=== PATIENT | female | born 1990 | race Caucasian/White ===

== ENCOUNTER 2020-10-28 15:10 | Emergency (ER) | payer OTHER, SELFPAY ==
[2020-10-28 15:52] VITALS: BP 116/73; PULSE 71; RESP 18; TEMP 36.5; O2SAT 100; BMI 35.5
--- NOTE | 2020-10-28 16:36 | ED.BACK ---
HPI - Back Pain/Injury General Chief Complaint: Back Pain/Injury Stated Complaint: Back Pain No Injury Time Seen by Provider: 10/28/20 16:24 Source: patient Mode of arrival: ambulatory Limitations: no limitations History of Present Illness HPI Narrative: 30 y/o female who is 2 months presenting with left lower back pain that started 2 days ago when she got up out of bed. She states the pain is aching in nature, worse with movement, palpation or when sitting in 1 position for too long. She has been taking Tylenol for the pain with no improvement. She denies urinary symptoms. No fever, chills. No radiation of pain. She denies any injury or trauma but noticed the pain when she got out of bed. She denies cramping, abdominal pain or vaginal bleeding. This is her 1st . MD elicited complaint: back pain Onset (ago): day(s) (2) Timing: constant Severity: moderate Similar Symptoms Previously: No Quality: aching Location: left lower back Radiation: none Exacerbating factors: movement and walking Relieving factors: immobilization Context: turning/twisting Associated symptoms: denies other symptoms Treatments prior to arrival: acetaminophen Work related injury: No Related Data Previous Rx's Medication Instructions Recorded lidocaine [Lidoderm] 1 patch TOPICAL DAILY #15 ea 10/28/20 Allergies Allergy/AdvReac Type Severity Reaction Status Date / Time latex [Latex] Allergy Unknown UNKNOWN Verified 10/28/20 15:52 From DILAUDID Allergy Mild FACIAL Uncoded 03/13/20 15:55 NUMBNESS AND HANDS NUMB Review of Systems Review of Systems: Constitutional: No Fever, No Chills ENT/Mouth: No sore throat, No Rhinorrhea, No Swallowing Difficulty Cardiovascular: No Chest Pain, No SOB Respiratory: No Cough, No Sputum Gastrointestinal: + Nausea, No Vomiting, No Diarrhea, No abdominal Pain Genitourinary: No Dysuria, No Urinary Frequency, No Hematuria Musculoskeletal: No joint pain, + Myalgias Skin: No Skin Lesions, No rash Neuro: No Weakness, No Numbness, No Dizziness, No Headache Psych: No Anxiety/Panic, No Depression Heme/Lymph: No Bruising, No Lymphadenopathy PMFSH Past Medical History Attestation statement: The following information was validated with the patient. Social History Social History Alcohol intake: never Smoked in Last 30 Days: No Use of substances other than those prescribed or required for medical reasons: No Any prior treatment program specific to substance use: No Advance Directives: No Advance Directives Information Provided: No Patient : Yes Physical Exam Vital Signs: Vital Signs: Last Vital Signs Temp 97.7 F 10/28/20 15:52 Pulse 71 10/28/20 15:52 Resp 18 10/28/20 15:52 BP 116/73 10/28/20 15:52 Pulse Ox 100 10/28/20 15:52 Body Mass Index 35.5 Appearance: Alert. Oriented X3. No acute distress. HEENT: normal inspection CVS: Normal heart rate and rhythm. Pulses normal. Respiratory: No respiratory distress. Speaks in full sentences Skin: Skin warm and dry. Normal skin color. Normal skin turgor. No rashes. Abd: no YANNICK tenderness. no abdominal tenderness, no rebound or guarding. Back: left middle & lower lumbar soft tissue tenderness, no SI joint tenderness. Limited ROM due to discomfort. No CVA tenderness Extremities: atraumatic, no edema. Neuro: Oriented X 3. No motor deficit. No sensory deficit. Ambulates with slow but steady gait Course Course Course Narrative: 30 y/o G1 who is 8 weeks presents with left lower back pain that started 2 days ago when she was getting out of bed. No urinary symptoms. Exam is consistent with muscular pain. Will check UA. Lidoderm ordered. Treatment options are limited due to . Reevaluation(s) Reevaluation #1: Patient unable to urinate. She would like to be discharged. She states she will follow up with her OB this week. She continues to deny urinary symptoms. Comfortable with d/c home as her exam and clinical presentation are consistent with muscluar pain. Discharge Plan Discharge Clinical Impression: Strain of lumbar region Qualifiers: Encounter type: initial encounter Qualified Code(s): S39.012A - Strain of muscle, fascia and tendon of lower back, initial encounter Patient Disposition: Home, Self-Care Instructions: Low Back Strain (ED), Lower Back Exercises (ED) Additional Instructions: Your pain is likely muscular. No bending, lifting or twisting. Use ice several times per day for 20 minutes at a time for the next 48 hours and then change to heat. Take Tylenol 1,000 mg every 6 hours as needed for pain. Use topical Lidoderm patches as needed for pain. Follow up with your Primary Care Doctor & your DEPENDENCY PROGRAM DIRECTOR this week. If your pain worsens, if you develop new numbness, tingling, weakness, or vaginal bleeding come back to the ER right away for evaluation. Prescriptions: New lidocaine [Lidoderm] 5 % adhesive patch,medicated 1 patch topical DAILY Qty: 15 RF: 0
[2020-10-28] MEDS: Lidocaine 4 % Patch ADH..PATCH 1 PATCH TRANSDERMA (17:14)
--- NOTE | 2020-10-28 17:40 | PC.NURSE ---
PT STATING THAT SHE HAS A PHOBIA OF PUBLIC RESTROOM AND IS UNABLE TO PEE EVEN TRIED COMMODE IN ROOM AND PT UNABLE TO URINE HERE NOAM MORTON AWARE AND PT WILL NEEDED TO F/U OUT PT WITH PCP FOR URINE TEST OR HER OBGYN TO R/U UTI.
== END 2020-10-28 18:03 | disposition home or self-care (01) ==
PROVIDERS: Emergency Provider Internal Medicine; PCP Internal Medicine
DX: O9A.211 Injury, poisoning and certain other consequences of external causes complicating pregnancy, first trimester (principal); S39.012A Strain of muscle, fascia and tendon of lower back, initial encounter; X50.1XXA Overexertion from prolonged static or awkward postures, initial encounter; Z3A.08 8 weeks gestation of pregnancy; Y93.84 Activity, sleeping; Y92.013 Bedroom of single-family (private) house as the place of occurrence of the external cause; Y99.9 Unspecified external cause status
CPT/HCPCS: 99283; 99284

== ENCOUNTER 2020-12-03 16:11 | Emergency (ER) | payer OTHER, SELFPAY | END 2020-12-03 19:07 | disposition left against medical advice (07) | PROVIDERS: Emergency Provider Emergency Medicine; PCP Internal Medicine | DX: R10.30 Lower abdominal pain, unspecified (principal) ==

== ENCOUNTER 2020-12-03 19:31 | Emergency (ER) | payer OTHER, SELFPAY ==
[2020-12-03 20:55] VITALS: BP 132/61; PULSE 91; RESP 18; TEMP 37; O2SAT 97; BMI 35.5
[2020-12-03 22:19] LABS: Basophils Percent Auto 0.4 % (0-2); Eosinophils Absolute Auto 0.2 X10*3/uL (0.0-0.4); Eosinophils Percent Auto 1.4 % (0-4); Hematocrit 34.7 % (37-47); Hemoglobin 10.4 g/dl (12.0-16.0); Imm Gran Abs Auto 0.07 X10*3/uL (0.00-0.03); Imm Gran Pct Auto 0.7 % (0.0-0.4); Lymphocytes Absolute Auto 1.3 X10*3/uL (1.2-4.9); Lymphocytes Percent Auto 11.9 % (20-40); MANUAL DIFF FLAG NO; Mean Corpuscular Hemoglobin 21.5 pg (27.0-33.0); Mean Corpuscular Volume 71.7 fL (80-98); Mean Platelet Volume 10.1 fL (9.4-12.3); Monocytes Percent Auto 9.2 % (2-11); Neutrophils Absolute Auto 8.2 X10*3/uL (2.0-8.3); Neutrophils Percent Auto 76.4 % (45-73); Platelet Count 294 X10*3/uL (160-400); Red Blood Count 4.84 X10*6/uL (4.20-5.50); Red Cell Distribution Width 21.1 % (11.0-16.0); White Blood Count 10.7 X10*3/uL (4.8-10.8)
[2020-12-03 22:25] LABS: Glucose Urine UA NEG (NEG); Leukocyte Esterase Urine NEG (NEG); Nitrite Urine NEG (NEG); Specific Gravity - Urine 1.025 (1.005-1.025); Urine Blood NEG (NEG); Urine Ketones 5 MG/DL (NEG); Urine Protein TRACE MG/DL (NEG-TRACE)
[2020-12-03 22:27] LABS: Appearance Urine HAZY; Color Urine DARK YELLOW
[2020-12-03 22:30] LABS: UPreg QC Valid YES; Urine Pregnancy NEGATIVE (NEGATIVE)
[2020-12-03 22:44] LABS: Calcium Oxalate Crystals Urine 3+ /LPF; Mucus Urine 2+ /LPF; RBC Urine 0 /HPF (0); Squamous Epithelial Cell Urine 2+ /LPF; WBC Urine 0 /HPF (0-4)
[2020-12-03 22:46] LABS: Anion Gap 13 (12-20); Blood Urea Nitrogen 5 mg/dL (9-16); Calcium 9.2 mg/dL (8.4-10.2); Carbon Dioxide 23 mmol/L (22-29); Chloride 104 mmol/L (96-108); Creatinine Clr Calc Pharmacy 144.2; Estimated Glomerular Filt Rate > 60; Glucose Random 88 mg/dL (60-115); Potassium 4.3 mmol/L (3.3-5.1); Sodium 136 mmol/L (135-145)
[2020-12-04 03:25] VITALS: BP 100/66; PULSE 87; RESP 18; O2SAT 98
--- NOTE | 2020-12-04 04:16 | ED_ITS ---
HPI - Abdominal Pain General Chief Complaint: Abdominal Pain Stated Complaint: low abd Pain 14 Weeks Time Seen by Provider: 12/04/20 04:16 History of Present Illness HPI narrative: Patient is a 30-year-old female presents today with having abdominal pain in the lower abdomen. Patient claims he has pain happen when she sits up or moves suddenly. Patient is approximately 14 weeks . She had ultrasound done in the last 2 weeks which show an intrauterine with twin gestations. Patient's from home. No significant past medical history. No fever no chills no cough no congestion or upper respiratory symptoms. No diaphoresis. Related Data Previous Rx's Medication Instructions Recorded lidocaine [Lidoderm] 1 patch TOPICAL DAILY #15 ea 10/28/20 Allergies Allergy/AdvReac Type Severity Reaction Status Date / Time latex [Latex] Allergy Unknown UNKNOWN Verified 10/28/20 15:52 From DILAUDID Allergy Mild FACIAL Uncoded 03/13/20 15:55 NUMBNESS AND HANDS NUMB Review of Systems Review of Systems Constitutional: No Weight loss, No Fever, No Chills, No Night Sweats, No Fa tigue, No Malaise ENT/Mouth: No Hearing loss, No Ear Pain, No Nasal Congestion, No Sinus Pain, No Hoarseness, No sore throat, No Rhinorrhea, No Swallowing Difficulty Eyes: No Eye Pain, No Swelling, No Redness, No Foreign Body, No Discharge, No Vision Changes Cardiovascular: No Chest Pain, No SOB, No Dyspnea on Exertion, No Orthopnea, No Edema, No Palpitations Respiratory: No Cough, No Sputum, No Wheezing, No Smoke Exposure, No Dyspnea Gastrointestinal: No Nausea, No Vomiting, No Diarrhea, No Constipation, positive abdominal Pain, No Hematochezia, No Melena Genitourinary: no irregular bleeding, No Dysuria, No Urinary Frequency, No Hematuria, No Urinary Incontinence, No Urgency, No Flank Pain, No Urinary Flow Changes, No Hesitancy Musculoskeletal: No joint pain, No Myalgias, No Joint Swelling Skin: No Skin Lesions, No rash Neuro: No Weakness, No Numbness, No Paresthesias, No Loss of Consciousness, No Dizziness, No Headache Psych: No Anxiety/Panic, No Depression, No SI/HI/AH/VH, No Social Issues, Heme/Lymph: No Bruising, No Bleeding,No Lymphadenopathy Endocrine: No Polyuria, No Polydipsia, No Temperature Intolerance Physical Exam Vital Signs: Vital Signs: Last Vital Signs Temp 98.6 F 12/03/20 20:55 Pulse 87 12/04/20 03:25 Resp 18 12/04/20 03:25 BP 100/66 12/04/20 03:25 Pulse Ox 98 12/04/20 03:25 Body Mass Index 35.5 Appearance: Alert. Oriented X3. No acute distress. Eyes: Pupils equal, round and reactive to light. ENT: Pharynx normal. Neck: Normal inspection. Neck supple. No lymph nodes noted. No crepitus CVS: Normal heart rate and rhythm. Pulses normal. Normal S1 and S2 Respiratory: No respiratory distress. Breath sounds normal. No Wheezing. No rales Abdomen: Soft and nontender. Fundal height slightly below the umbilicus. No rigidity. No distention. good BS x4 Skin: Skin warm and dry. Normal skin color. Normal skin turgor. Extremities: No lower extremity edema. Neurovascular intact to all extremities. No Lacerations. No Rash Neuro: Oriented X 3. No motor deficit. No sensory deficit. Moving all extermities. No slurred speech MDM - Abdominal Pain MDM Narrative Medical decision making narrative: Patient's urine is negative for infection. Quantitative hCG is over 100,000 consistent with having a . Patient's abdominal exam is consistent with having a . Patient had ultrasound that showed an intrauterine consistent with having a and no ectopic . Will discharge patient home as patient has symptoms consistent with having round ligament pain. Worse with positional changes. Currently in stable condition. Medical Records Attestation: I reviewed the patient's medical records. Lab Data Attestation: I reviewed the patient's lab results. Result diagrams: 12/03/20 22:08 12/03/20 22:08 Labs: Lab Results 12/03/20 12/03/20 12/03/20 Range/Units 22:08 22:08 22:10 WBC 10.7 (4.8-10.8) X10*3/uL RBC 4.84 (4.20-5.50) X10*6/uL Hgb 10.4 L (12.0-16.0) g/dl Hct 34.7 L (37-47) % MCV 71.7 L (80-98) fL MCH 21.5 L (27.0-33.0) pg MCHC 30.0 L (31.0-35.0) g/dl RDW 21.1 H (11.0-16.0) % Plt Count 294 (160-400) X10*3/uL MPV 10.1 (9.4-12.3) fL Immature Gran % (Auto) 0.7 H (0.0-0.4) % Neut % (Auto) 76.4 H (45-73) % Lymph % (Auto) 11.9 L (20-40) % [place] % (Auto) 9.2 (2-11) % Eos % (Auto) 1.4 (0-4) % Baso % (Auto) 0.4 (0-2) % Lymph # (Auto) 1.3 (1.2-4.9) X10*3/uL [place] # (Auto) 1.0 (0.1-1.2) X10*3/uL Eos # (Auto) 0.2 (0.0-0.4) X10*3/uL Baso # (Auto) 0.0 (0.0-0.2) X10*3/uL Abs Immat Gran (auto) 0.07 H (0.00-0.03) X10*3/uL Absolute Neuts (auto) 8.2 (2.0-8.3) X10*3/uL Absolute Nucleated RBC 0.000 (0.0-0.012) X10*3/uL Nucleated RBC % (auto) 0.0 (0.0-0.2) /100WBC Sodium 136 (135-145) mmol/L Potassium 4.3 (3.3-5.1) mmol/L Chloride 104 (96-108) mmol/L Carbon Dioxide 23 (22-29) mmol/L Anion Gap 13 (12-20) BUN 5 L (9-16) mg/dL Creatinine 0.68 (0.5-1.4) mg/dL Estim Creat Clear Calc 144.2 Estimated GFR > 60 Random Glucose 88 (60-115) mg/dL Calcium 9.2 (8.4-10.2) mg/dL Beta HCG, Quant 580906 mIU/mL Urine Color DARK YELLOW Urine Appearance HAZY Urine pH 6.0 (5.0-8.0) Ur Specific [place] 1.025 (1.005-1.025) Urine Protein TRACE (NEG-TRACE) MG/DL Urine Glucose (UA) NEG (NEG) MG/DL Urine Ketones 5 (NEG) MG/DL Urine Blood NEG (NEG) Urine Nitrite NEG (NEG) Ur Leukocyte Esterase NEG (NEG) Urine RBC 0 (0) /HPF Urine WBC 0 (0-4) /HPF Ur Squamous Epith Cells 2+ /LPF Calcium Oxalate Crystal 3+ /LPF Urine Bacteria NONE /LPF Urine Mucus 2+ /LPF Urine Test (NEGATIVE) 12/03/20 Range/Units 22:10 WBC (4.8-10.8) X10*3/uL RBC (4.20-5.50) X10*6/uL Hgb (12.0-16.0) g/dl Hct (37-47) % MCV (80-98) fL MCH (27.0-33.0) pg MCHC (31.0-35.0) g/dl RDW (11.0-16.0) % Plt Count (160-400) X10*3/uL MPV (9.4-12.3) fL Immature Gran % (Auto) (0.0-0.4) % Neut % (Auto) (45-73) % Lymph % (Auto) (20-40) % [place] % (Auto) (2-11) % Eos % (Auto) (0-4) % Baso % (Auto) (0-2) % Lymph # (Auto) (1.2-4.9) X10*3/uL [place] # (Auto) (0.1-1.2) X10*3/uL Eos # (Auto) (0.0-0.4) X10*3/uL Baso # (Auto) (0.0-0.2) X10*3/uL Abs Immat Gran (auto) (0.00-0.03) X10*3/uL Absolute Neuts (auto) (2.0-8.3) X10*3/uL Absolute Nucleated RBC (0.0-0.012) X10*3/uL Nucleated RBC % (auto) (0.0-0.2) /100WBC Sodium (135-145) mmol/L Potassium (3.3-5.1) mmol/L Chloride (96-108) mmol/L Carbon Dioxide (22-29) mmol/L Anion Gap (12-20) BUN (9-16) mg/dL Creatinine (0.5-1.4) mg/dL Estim Creat Clear Calc Estimated GFR Random Glucose (60-115) mg/dL Calcium (8.4-10.2) mg/dL Beta HCG, Quant mIU/mL Urine Color Urine Appearance Urine pH (5.0-8.0) Ur Specific [place] (1.005-1.025) Urine Protein (NEG-TRACE) MG/DL Urine Glucose (UA) (NEG) MG/DL Urine Ketones (NEG) MG/DL Urine Blood (NEG) Urine Nitrite (NEG) Ur Leukocyte Esterase (NEG) Urine RBC (0) /HPF Urine WBC (0-4) /HPF Ur Squamous Epith Cells /LPF Calcium Oxalate Crystal /LPF Urine Bacteria /LPF Urine Mucus /LPF Urine Test NEGATIVE (NEGATIVE) Discharge Plan Discharge Clinical Impression: Abdominal pain complicating Patient Disposition: Home, Self-Care Instructions: Abdominal Pain in (ED) Prescriptions: No Action lidocaine [Lidoderm] 5 % adhesive patch,medicated 1 patch topical DAILY Qty: 15 RF: 0 Referrals: Dallas Hernandez MD [Primary Care Provider] - 2 days (Please follow-up with your OBGYN doctor on an outpatient basis. Worsened abdominal pain return to the emergency department immediately.) PMFSH Past Medical History Medical History Anemia Arthritis Asthma Fibroid Social History Social History Alcohol intake: never Advance Directives: No Advance Directives Information Provided: No Patient : Yes
== END 2020-12-04 04:31 | disposition home or self-care (01) ==
PROVIDERS: Emergency Provider Emergency Medicine Emergency Medical Services; PCP Internal Medicine
DX: O26.891 Other specified pregnancy related conditions, first trimester (principal); R10.9 Unspecified abdominal pain; Z3A.14 14 weeks gestation of pregnancy
CPT/HCPCS: 36415; 80048; 81001; 81025; 84702; 85025; 99283; 99284

== ENCOUNTER 2022-11-30 19:20 | Observation (INO) | payer OTHER, SELFPAY ==
--- NOTE | ~2022-11-30 | XR_ITS ---
EXAMINATION: XR SOFT TISSUE NECK CLINICAL INDICATION: Evaluate for foreign body. COMPARISON: None available. TECHNIQUE: 2 views of the soft tissue neck were obtained. FINDINGS: Soft tissue films of the neck demonstrate a normal larynx, pharynx and upper trachea. No soft tissue swelling or opaque foreign body is demonstrated. XR/XR soft tissue neck IMPRESSION: Unremarkable examination.
--- NOTE | 2022-11-30 20:57 | ED.NAVMDI ---
HPI - Nausea/Vomiting/Diarrhea General Stated complaint: piece of meat stuck in esophagus Related Data Previous Rx's Medication Instructions Recorded lidocaine 5 % topical patch 1 patch topical DAILY #15 ea 10/28/20 (Lidoderm) Allergies Allergy/AdvReac Type Severity Reaction Status Date / Time latex [Latex] Allergy Unknown UNKNOWN Verified 10/28/20 15:52 From DILAUDID Allergy Mild FACIAL Uncoded 03/13/20 15:55 NUMBNESS AND HANDS NUMB PMFSH Past Medical History Medical History Anemia Arthritis Asthma Fibroid Social History Social History Alcohol intake: never Patient Tobacco Use Status: Never used Tobacco Course Course Course Narrative: RME - 32 yo female presents to the ER for evaluation a piece of beef stuck in her esophagus that occurred at 6pm when eating beef stew. Unable to tolerate liquids, has been spitting out her own saliva. When tries liquids, it comes back up. Hx similar episode in the past but not this bad. Plan: soft tissue neck XR, PO trial, meds for esophageal foreign body Discharge Plan Discharge Prescriptions: No Action lidocaine [Lidoderm] 5 % adhesive patch,medicated 1 patch topical DAILY Qty: 15 0RF Rx Instructions: leave on most painful area for up to 12 hrs
[2022-11-30 20:58] VITALS: BP 124/74; PULSE 74; RESP 16; TEMP 36.8; O2SAT 100; BMI 38.7
--- NOTE | 2022-11-30 21:38 | ED.GENADULT ---
HPI - General Adult General Chief complaint: General Medical Stated complaint: piece of meat stuck in esophagus Time Seen by Provider: 11/30/22 21:32 History of Present Illness HPI narrative: Patient is 32 years old we had the stool subsequently felt something stuck in the your esophagus. Unable to tolerate any fluid since. Very nauseous vomiting. Patient from home. History of similar symptoms in the past but gone away. Had an endoscopy done in the past, it showed some narrowing. Patient came in for further evaluation Related Data Previous Rx's Medication Instructions Recorded lidocaine 5 % topical patch 1 patch topical DAILY #15 ea 10/28/20 (Lidoderm) Allergies Allergy/AdvReac Type Severity Reaction Status Date / Time latex [Latex] Allergy Unknown UNKNOWN Verified 10/28/20 15:52 From DILAUDID Allergy Mild FACIAL Uncoded 03/13/20 15:55 NUMBNESS AND HANDS NUMB Review of Systems Review of Systems: No fever no chills no chest pain or shortness of breath. Patient not on blood thinners. Yes all other systems are reviewed and are negative PMFSH Past Medical History Attestation statement: The following information was validated with the patient. Medical History Anemia Arthritis Asthma Fibroid Social History Social History Alcohol intake: never Patient Tobacco Use Status: Never used Tobacco Advance Directives: No Advance Directives Information Provided: Yes Physical Exam ED Vital Signs: Vital Signs - 24 hr 11/30/22 20:58 11/30/22 22:48 Temperature 98.3 F 97.5 F Pulse Rate 74 72 Respiratory Rate 16 12 Blood Pressure 124/74 104/62 Pulse Oximetry 100 100 Oxygen Delivery Method Room Air Room Air BMI result Body Mass Index 38.7 Appearance: Alert. Oriented X3. No acute distress. Eyes: Pupils equal, round and reactive to light. ENT: Pharynx normal. Neck: Normal inspection. Neck supple. No lymph nodes noted. No crepitus CVS: Normal heart rate and rhythm. Pulses normal. Normal S1 and S2 Respiratory: No respiratory distress. Breath sounds normal. No Wheezing. No rales Abdomen: Soft and nontender. No rigidity. No distention. good BS x4 Skin: Skin warm and dry. Normal skin color. Normal skin turgor. Extremities: No lower extremity edema. Neurovascular intact to all extremities. No Lacerations. No Rash Neuro: Oriented X 3. No motor deficit. No sensory deficit. Moving all extermities. No slurred speech Medications Administered Discontinued Medications Generic Name Dose Route Start Last Admin Trade Name Sheng PRN Reason Stop Dose Admin Glucagon 1 mg 11/30/22 21:33 11/30/22 22:10 Glucagon,Human Recombinant 1 Mg/Ml Vial IVPUSH 11/30/22 21:34 1 mg ONCE ONE Administration Sodium Chloride 1,000 mls @ 999 mls/hr 11/30/22 21:45 11/30/22 22:06 Ns IV 11/30/22 22:45 999 mls/hr .Q1H1M JANE Administration Nitroglycerin 0.4 mg 11/30/22 21:44 11/30/22 22:13 Nitroglycerin 0.4 Mg Tab.Subl SUBLINGUAL 11/30/22 21:45 0.4 mg ONCE ONE Administration Medical Decision Making Medical Decision Making [facility] Narrative: Patient had nausea vomiting ever since eating a piece of meat. Symptoms consistent with having food impaction. Given glucagon, nitroglycerin with no relief of symptoms. Patient given a L of fluids. Case discussed with GI. Patient will need to be admitted overnight for IV hydration to get food impaction taking care of in a.m. as there is an emergent case in the OR there is no additional anesthesia staff available. Patient's case was discussed with the hospitalist team. Additional history obtained through the family. Patient is in stable condition. Differential Diagnosis Differential Diagnoses: The differential diagnosis associated with the presentation includes Food impaction Consult Healthcare Provider Management of the patient was discussed with: Hospitalist and Senior Net Software Developer GI Lab Data [facility] Lab Attestation statement: I reviewed the patient's lab results. 11/30/22 22:05 11/30/22 22:05 Labs: Lab Results 11/30/22 11/30/22 Range/Units 22:05 22:05 WBC 8.6 (4.8-10.8) X10*3/uL RBC 5.48 (4.20-5.50) X10*6/uL Hgb 9.9 L (12.0-16.0) g/dl Hct 35.3 L (37.0-47.0) % MCV 64.4 L (80.0-98.0) fL MCH 18.1 L (27.0-33.0) pg MCHC 28.0 L (31.0-35.0) g/dl RDW 18.8 H (11.0-16.0) % Plt Count 371 (160-400) X10*3/uL MPV Not Reportable Immature Gran % (Auto) 0.2 (0.0-0.4) % Neut % (Auto) 52.2 (45-73) % Lymph % (Auto) 30.4 (20-40) % [place] % (Auto) 6.3 (2-11) % Eos % (Auto) 10.0 H (0-4) % Baso % (Auto) 0.9 (0-2) % Lymph # (Auto) 2.6 (1.2-4.9) X10*3/uL [place] # (Auto) 0.5 (0.1-1.2) X10*3/uL Eos # (Auto) 0.9 H (0.0-0.4) X10*3/uL Baso # (Auto) 0.1 (0.0-0.2) X10*3/uL Abs Immat Gran (auto) 0.02 (0.00-0.03) X10*3/uL Absolute Neuts (auto) 4.5 (2.0-8.3) x10*3/uL Absolute Nucleated RBC 0.000 (0.0-0.012) X10*3/uL Nucleated RBC % (auto) 0.0 (0.0-0.2) /100WBC Smear Tech's Comments VERIFIED Sodium 140 (135-145) mmol/L Potassium 4.3 (3.3-5.1) mmol/L Chloride 108 (96-108) mmol/L Carbon Dioxide 26 (22-29) mmol/L Anion Gap 10 L (12-20) BUN 10 (9-16) mg/dL Creatinine 0.78 (0.5-1.4) mg/dL Estim Creat Clear Calc 129.3 Estimated GFR > 60 Random Glucose 92 (60-115) mg/dL Calcium 9.1 (8.4-10.2) mg/dL Discharge Plan Discharge Clinical Impression: Food impaction of esophagus Patient Disposition: Admitted As Inpatient Prescriptions: No Action lidocaine [Lidoderm] 5 % adhesive patch,medicated 1 patch topical DAILY Qty: 15 0RF Rx Instructions: leave on most painful area for up to 12 hrs
[2022-11-30] MEDS: 0.9 % Sodium Chloride 1,000 ML 999 ML IV (22:06)
[2022-11-30] MEDS: Nitroglycerin 0.4 MG TAB.SUBL SUBLINGUAL (22:13)
[2022-11-30 22:16] LABS: Basophils Absolute Auto 0.1 X10*3/uL (0.0-0.2); Basophils Percent Auto 0.9 % (0-2); Eosinophils Absolute Auto 0.9 X10*3/uL (0.0-0.4); Hematocrit 35.3 % (37.0-47.0); Hemoglobin 9.9 g/dl (12.0-16.0); Imm Gran Abs Auto 0.02 X10*3/uL (0.00-0.03); Imm Gran Pct Auto 0.2 % (0.0-0.4); Lymphocytes Absolute Auto 2.6 X10*3/uL (1.2-4.9); Lymphocytes Percent Auto 30.4 % (20-40); MANUAL DIFF FLAG SCAN; Mean Corpuscular Hemoglobin 18.1 pg (27.0-33.0); Monocytes Absolute Auto 0.5 X10*3/uL (0.1-1.2); Monocytes Percent Auto 6.3 % (2-11); Neutrophils Absolute Auto 4.5 x10*3/uL (2.0-8.3); Neutrophils Percent Auto 52.2 % (45-73); Platelet Count 371 X10*3/uL (160-400); Red Blood Count 5.48 X10*6/uL (4.20-5.50); Red Cell Distribution Width 18.8 % (11.0-16.0); SCAN SMEAR FLAG 1; White Blood Count 8.6 X10*3/uL (4.8-10.8)
[2022-11-30 22:17] LABS: Mean Corpuscular Volume 64.4 fL (80.0-98.0); PLT ABN DIST 1
[2022-11-30 22:25] LABS: Anion Gap 10 (12-20); Blood Urea Nitrogen 10 mg/dL (9-16); Calcium 9.1 mg/dL (8.4-10.2); Carbon Dioxide 26 mmol/L (22-29); Chloride 108 mmol/L (96-108); Creatinine Clr Calc Pharmacy 129.3; Estimated Glomerular Filt Rate > 60; Glucose Random 92 mg/dL (60-115); Potassium 4.3 mmol/L (3.3-5.1); Sodium 140 mmol/L (135-145)
[2022-11-30 22:43] LABS: SLIDE REVIEW VERIFIED
[2022-11-30 22:48] VITALS: BP 104/62; PULSE 72; RESP 12; TEMP 36.4; O2SAT 100
--- NOTE | 2022-11-30 23:11 | PM.IMHP ---
History of Present Illness Date of Service: 11/30/22 Chief Complaint: Dysphagia This is 32-year-old female with pertinent history of asthma who presents to the emergency department for evaluation of food stuck in esophagus. Patient states she has had trouble swallowing with solids that has been ongoing for the last few years. Patient underwent EGD in 2019 when pathology report revealed eosinophilic esophagitis. Patient states he was referred to an group exercise instructor but never went. She states he has trouble swallowing solids but on the day of presentation, patient feels like a piece of beef is stuck in her throat after she had beef stew. Usually the food takes time but either goes down or comes up. No trouble with fluids/liquids. She denies fever, chills, chest discomfort, palpitations, Shortness of breath, abdominal pain, changes in urinary or bowel habits. In the emergency department, GI was consulted who recommended admission and will evaluate the patient in a.m. Review of Systems Constitutional: Constitutional: Reports no additional constitutional complaints ENT: Reports dysphagia Cardiovascular: Cardiovascular: Reports no additional cardiovascular complaints Respiratory: Respiratory: Reports no additional respiratory complaints Gastrointestinal: Gastrointestinal: Reports dysphagia Genitourinary: Genitourinary: Reports no additional female genitourinary complaints [facility] Medical History Anemia Arthritis Asthma Fibroid Social History Alcohol intake: never Patient Tobacco Use Status: Never used Tobacco Advance Directives: No Advance Directives Information Provided: Yes Meds Allergies Allergy/AdvReac Type Severity Reaction Status Date / Time latex [Latex] Allergy Unknown UNKNOWN Verified 10/28/20 15:52 From DILAUDID Allergy Mild FACIAL Uncoded 03/13/20 15:55 NUMBNESS AND HANDS NUMB Physical Exam Vital Signs and Narrative: Vital Signs: Last Vital Signs Temp 97.5 F 11/30/22 22:48 Pulse 72 11/30/22 22:48 Resp 12 11/30/22 22:48 BP 104/62 11/30/22 22:48 Pulse Ox 100 11/30/22 22:48 O2 Del Method Room Air 11/30/22 22:48 BMI result Body Mass Index 38.7 Young female lying in bed in no distress Neck supple, no JVD Regular rate and rhythm, S1-S2 heard Regular breath sounds bilaterally, no wheezing or crackles appreciated Abdomen soft nontender, no guarding, no rigidity Patient is awake, alert and oriented to self, place, time and person ; no focal motor deficit Psych: Normal mood No pedal edema Results Labs 11/30/22 22:05 11/30/22 22:05 Labs: Laboratory Results - last 24 hr 11/30/22 11/30/22 22:05 22:05 MCV 64.4 L MCH 18.1 L MCHC 28.0 L RDW 18.8 H Plt Count 371 MPV Not Reportable Immature Gran % (Auto) 0.2 Neut % (Auto) 52.2 Lymph % (Auto) 30.4 [place] % (Auto) 6.3 Eos % (Auto) 10.0 H Baso % (Auto) 0.9 Lymph # (Auto) 2.6 [place] # (Auto) 0.5 Eos # (Auto) 0.9 H Baso # (Auto) 0.1 Abs Immat Gran (auto) 0.02 Absolute Neuts (auto) 4.5 Absolute Nucleated RBC 0.000 Nucleated RBC % (auto) 0.0 Smear Tech's Comments VERIFIED Anion Gap 10 L Estim Creat Clear Calc 129.3 Estimated GFR > 60 Random Glucose 92 Calcium 9.1 Imaging Radiologist's Impressions: Impressions Soft Tissue Neck X-Ray 11/30/22 21:20 IMPRESSION: Unremarkable examination. Assessment and Plan (1) Food impaction of esophagus: Status: Acute Plan This is 32-year-old female with pertinent history of asthma who presents to the emergency department for evaluation of food stuck in esophagus. #. dysphagia. Will keep patient NPO. GI consulted from the ER, appreciate assistance. Anticipate EGD in a.m. #. microcytic anemia. Obtaining iron panel DVT prophylaxis: None. Patient is ambulatory Full code NPO Time Spent With Patient Time: Total time managing care of this patient today ____ minutes. Quality Stroke Does the patient have a stroke diagnosis?: No VTE Prior VTE?: No VTE Risk Level:: Medical - low VTE Device Contraindication: Treatment Not Indicated VTE Drug Contraindication: Treatment Not Indicated
[2022-11-30 23:44] VITALS: BP 108/77; PULSE 76; RESP 14; TEMP 36.2; O2SAT 100
[2022-12-01 00:03] LABS: Iron 19 mcg/dL (30-160); Percent Iron Saturation 6 % (15-50); Total Iron Binding Capacity 319 mcg/dL (228-428); Unsaturated Iron Binding 300 ug/dL
[2022-12-01 04:31] LABS: UPreg QC Valid YES; Urine Pregnancy NEGATIVE (NEGATIVE)
[2022-12-01] MEDS: Ketorolac Tromethamine 30 MG/ML VIAL IVPUSH (04:50)
--- NOTE | 2022-12-01 05:08 | PC.NURSE ---
med req completed
--- NOTE | 2022-12-01 05:09 | PC.NURSE ---
Pt aox4 resting at the bedside. Reports having one emesis episode with relief. Reports I feel that whatever was stuck there came up. No pain at this time. VSS. Will continue to monitor. Pt aware of plan of care.
[2022-12-01 06:11] LABS: MANUAL DIFF FLAG NO
[2022-12-01 06:17] LABS: Basophils Absolute Auto 0.1 X10*3/uL (0.0-0.2); Basophils Percent Auto 0.8 % (0-2); Eosinophils Absolute Auto 0.7 X10*3/uL (0.0-0.4); Eosinophils Percent Auto 8.8 % (0-4); Hematocrit 30.7 % (37.0-47.0); Hemoglobin 8.7 g/dl (12.0-16.0); Imm Gran Abs Auto 0.04 X10*3/uL (0.00-0.03); Imm Gran Pct Auto 0.5 % (0.0-0.4); Lymphocytes Absolute Auto 2.1 X10*3/uL (1.2-4.9); Lymphocytes Percent Auto 24.5 % (20-40); Mean Corpuscular HGB Conc 28.3 g/dl (31.0-35.0); Mean Corpuscular Hemoglobin 18.4 pg (27.0-33.0); Monocytes Absolute Auto 0.5 X10*3/uL (0.1-1.2); Monocytes Percent Auto 6.4 % (2-11); Neutrophils Absolute Auto 4.9 x10*3/uL (2.0-8.3); Platelet Count 283 X10*3/uL (160-400); Red Blood Count 4.72 X10*6/uL (4.20-5.50); Red Cell Distribution Width 18.2 % (11.0-16.0); White Blood Count 8.4 X10*3/uL (4.8-10.8)
[2022-12-01 06:33] LABS: Anion Gap 10 (12-20); Blood Urea Nitrogen 8 mg/dL (9-16); Calcium 8.3 mg/dL (8.4-10.2); Carbon Dioxide 24 mmol/L (22-29); Chloride 110 mmol/L (96-108); Estimated Glomerular Filt Rate > 60; Glucose Random 86 mg/dL (60-115); Potassium 4.1 mmol/L (3.3-5.1); Sodium 140 mmol/L (135-145)
--- NOTE | 2022-12-01 07:11 | PHA.MEDREC ---
Pharmacy Consult ? Medication Reconciliation Pharmacy has completed the medication reconciliation. Completed by RN reviewed by pharmacy Navjot
--- NOTE | 2022-12-01 11:52 | MHC.CM.PN ---
Met with patient in regards to discharge planning. Patient lives with her and 1.5 year old twin daughters, ambulates independently and had no services prior to coming to the hospital. Services not anticipated to be needed because patient is not homebound. PCP verified. Patient receive 3 Covid vaccines. Copy of HCP obtained from [facility]. Obs notice explained and signed. Patient's will transport her home when medically stable. Continue to monitor for d/c needs.
--- NOTE | 2022-12-01 12:58 | PM.DS ---
DS: Providers Provider Date of Service: 12/01/22 Date of admission: 11/30/22 23:09 Primary care physician: Dallas Hernandez III, MD Consults: 11/30/22 23:09 Consult to Gastroenterology Routine Consulting Provider: Taniya Jamison Reason for consultation: dysphagia DS: Diagnosis Discharge Diagnosis (1) Food impaction of esophagus: Status: Acute DS: Summary Hospital Course Hospital Course: from initial hpi: 32-year-old female with pertinent history of asthma who presents to the emergency department for evaluation of food stuck in esophagus.? Patient states she has had trouble swallowing with solids that has been ongoing for the last few years.? Patient underwent EGD in 2019 when pathology report revealed eosinophilic esophagitis.? Patient states he was referred to an r and d lab technician but never went.? She states he has trouble swallowing solids but on the day of presentation, patient feels like a piece of beef is stuck in her throat after she had beef stew.? Usually the food takes time but either goes down or comes up.? No trouble with fluids/liquids. She denies fever, chills, chest discomfort, palpitations, Shortness of breath, abdominal pain, changes in urinary or bowel habits. hospital course: Patient was admitted for dysphagia likely due to food impaction which resolved spontaneously. 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 She was treated with PPI he will continue as outpatient. GI recommended outpatient follow-up for EGD. For microcytic anemia due to chronic iron deficiency anemia she received IV iron will continue on p.o. iron. Time Spent with Patient Time attestation: Total time managing care of this patient today ____ minutes. Discharge coordination time: Greater than 30 minutes Quality: Safe Use of Opioids Does Pt have an Active Cancer Diagnosis on the Problem List?: No Quality: Stroke Does the patient have a stroke diagnosis?: No Physical Exam Vital Signs: Vital Signs: Last Vital Signs Temp 97.1 F 11/30/22 23:44 Pulse 76 11/30/22 23:44 Resp 14 11/30/22 23:44 BP 108/77 11/30/22 23:44 Pulse Ox 100 11/30/22 23:44 O2 Del Method Room Air 11/30/22 23:44 BMI result Body Mass Index 38.7 General: AO X 3, no acute distress Resp: CTA bilateral, no accessory muscles used CVS: S1,S2,RRR GI: soft, non tender, non distended Neuro: motor grossly intact, alert Psych: appropriate affect, appropriate insight DS: Data Data Completed and Pending Labs on day of discharge: Laboratory Results - last 24 hr 11/30/22 11/30/22 11/30/22 22:05 22:05 23:21 WBC 8.6 RBC 5.48 Hgb 9.9 L Hct 35.3 L MCV 64.4 L MCH 18.1 L MCHC 28.0 L RDW 18.8 H Plt Count 371 MPV Not Reportable Immature Gran % (Auto) 0.2 Neut % (Auto) 52.2 Lymph % (Auto) 30.4 Adams % (Auto) 6.3 Eos % (Auto) 10.0 H Baso % (Auto) 0.9 Lymph # (Auto) 2.6 Adams # (Auto) 0.5 Eos # (Auto) 0.9 H Baso # (Auto) 0.1 Abs Immat Gran (auto) 0.02 Absolute Neuts (auto) 4.5 Absolute Nucleated RBC 0.000 Nucleated RBC % (auto) 0.0 Smear Tech's Comments VERIFIED Sodium 140 Potassium 4.3 Chloride 108 Carbon Dioxide 26 Anion Gap 10 L BUN 10 Creatinine 0.78 Estim Creat Clear Calc 129.3 Estimated GFR > 60 Random Glucose 92 Calcium 9.1 Iron 19 L TIBC 319 % Saturation 6 L Unsat Iron Binding 300 Urine Test 12/01/22 12/01/22 12/01/22 04:25 05:31 05:31 WBC 8.4 RBC 4.72 Hgb 8.7 L Hct 30.7 L MCV 65.0 L MCH 18.4 L MCHC 28.3 L RDW 18.2 H Plt Count 283 MPV TNP Immature Gran % (Auto) 0.5 H Neut % (Auto) 59.0 Lymph % (Auto) 24.5 Adams % (Auto) 6.4 Eos % (Auto) 8.8 H Baso % (Auto) 0.8 Lymph # (Auto) 2.1 Adams # (Auto) 0.5 Eos # (Auto) 0.7 H Baso # (Auto) 0.1 Abs Immat Gran (auto) 0.04 H Absolute Neuts (auto) 4.9 Absolute Nucleated RBC 0.000 Nucleated RBC % (auto) 0.0 Smear Tech's Comments Sodium 140 Potassium 4.1 Chloride 110 H Carbon Dioxide 24 Anion Gap 10 L BUN 8 L Creatinine 0.77 Estim Creat Clear Calc 131.0 Estimated GFR > 60 Random Glucose 86 Calcium 8.3 L D Iron TIBC % Saturation Unsat Iron Binding Urine Test NEGATIVE Discharge Plan Discharge Anticipated Discharge Date/Time: 12/01/22 12:56 Patient Disposition: Home, Self-Care Discharge Diagnosis: food impaction Referrals: Dallas Hernandez III, MD [Primary Care Provider] - 1 Week Taniya Jamisno MD [Physician] - 1 Week Discharge Medications: New ferrous sulfate 325 mg (65 mg iron) tablet 325 mg PO DAILY Qty: 30 0RF omeprazole 20 mg capsule,delayed release(DR/EC) 20 mg PO DAILY Qty: 30 0RF Continued lidocaine [Lidoderm] 5 % adhesive patch,medicated 1 patch topical DAILY Qty: 15 0RF Rx Instructions: leave on most painful area for up to 12 hrs albuterol sulfate 2.5 mg /3 mL (0.083 %) solution for nebulization 2.5 mg inhalation Q4H PRN (Reason: wheezing) albuterol sulfate [Ventolin HFA] 90 mcg/actuation HFA aerosol inhaler 2 puff inhalation Q4H PRN (Reason: wheezing) Discharge Orders: Discharge Order (Routine); Ordered 12/01/22 Ordered By: Raz Wick Diet: Advance to usual diet Activity on Discharge: As tolerated Stand Alone Forms: Patient Portal Discharge page Care Plan Goals: recovery Health Concerns: iron defeciency, food impaction Plan of Treatment: start iron and ppi, follow up with GI for scope Assessment: see above
== END 2022-12-01 18:30 | disposition home or self-care (01) ==
LOC: HO.ED 23:14 → HO.EDOVER 23:31
PROVIDERS: Admitting Provider Student in an Organized Health Care Education/Training Program; Emergency Provider Emergency Medicine Emergency Medical Services; PCP Internal Medicine; Visit Provider Internal Medicine
DX: T18.128A Food in esophagus causing other injury, initial encounter (principal); X58.XXXA Exposure to other specified factors, initial encounter; Y93.9 Activity, unspecified; Y92.9 Unspecified place or not applicable; R13.10 Dysphagia, unspecified; J45.998 Other asthma; D50.9 Iron deficiency anemia, unspecified
CPT/HCPCS: 36415; 70360; 80048; 81025; 83540; 85025; 96361; 96365; 96366; 96375; 99222; 99285; J1610; J1756; J1885

== ENCOUNTER 2022-12-29 12:18 | Day surgery (SDC) | payer OTHER, SELFPAY ==
--- NOTE | 2022-12-27 10:46 | HO.ANESPROP2 ---
Documented by User: Betzaida Dickerson NP 12/27/22 10:52 HPI - Anesthesia Eval Consult details Narrative: 32yo F for Upper Endoscopy [facility] Active Problems Active Problems: All Active Problems (Updated 11/30/22 @ 23:14 by Aneta Stout MD) Food impaction of esophagus (Acute) Past Medical History Medical History Anemia Arthritis Asthma Fibroid Social History Social History Alcohol intake: never Patient Tobacco Use Status: Never used Tobacco Advance Directives: No Advance Directives Information Provided: Yes Advance Directives Date on File: 12/01/22 service: No Current occupational status: employed Meds Allergies Allergy/AdvReac Type Severity Reaction Status Date / Time hydromorphone [From Dilaudid] Allergy Mild facial/hand Verified 12/24/22 11:05 numbness latex [Latex] Allergy Unknown UNKNOWN Verified 10/28/20 15:52 Home Medications Medication Instructions Recorded Confirmed Last Taken Type albuterol sulfate 2.5 mg/3 mL 2.5 mg inhalation Q4H PRN wheezing 12/01/22 12/24/22 Unknown History (0.083 %) solution for nebulization albuterol sulfate 90 mcg/actuation 2 puff inhalation Q4H PRN wheezing 12/01/22 12/24/22 Unknown History aerosol inhaler (Ventolin HFA) Exam Exam Date and Time: December 27, 2022 104 Pertinent Lab Results Pertinent Lab Results: Laboratory Tests 12/01/22 12/01/22 05:31 05:31 WBC 8.4 Hgb 8.7 L Hct 30.7 L Plt Count 283 Sodium 140 Potassium 4.1 Chloride 110 H Carbon Dioxide 24 BUN 8 L Creatinine 0.77 Assessment and Plan Assessment Anesthesia Assessment: Chart Reviewed Documented by User: Selene Pinon MD 12/29/22 12:38 PMFSH Past Medical History Medical History Anemia Arthritis Asthma Fibroid Surgical History History of Problems with Anesthesia: No Social History Social History Alcohol intake: never Patient Tobacco Use Status: Never used Tobacco Advance Directives: No Advance Directives Information Provided: Yes Advance Directives Date on File: 12/01/22 service: No Current occupational status: employed Meds Allergies Allergy/AdvReac Type Severity Reaction Status Date / Time hydromorphone [From Dilaudid] Allergy Mild facial/hand Verified 12/24/22 11:05 numbness latex [Latex] Allergy Unknown UNKNOWN Verified 10/28/20 15:52 Home Medications Medication Instructions Recorded Confirmed Last Taken Type albuterol sulfate 2.5 mg/3 mL 2.5 mg inhalation Q4H PRN wheezing 12/01/22 12/24/22 Unknown History (0.083 %) solution for nebulization albuterol sulfate 90 mcg/actuation 2 puff inhalation Q4H PRN wheezing 12/01/22 12/24/22 Unknown History aerosol inhaler (Ventolin HFA) Exam Airway Mallampati Class: II TM Dist: >3cm Neck ROM: Full Heart: rrr Lungs: cta Assessment and Plan Assessment Anesthesia Assessment: Anesthesia Plan Discussed Final Anesthetic Review History of Problems with Anesthesia: No NPO: Yes ASA Class: II Final Preanesthetic Review: No Changes in Pt Med Stat, Meds/Allgs Chart Reviewed and Consent Obtained/Reviewed Patient Risk: Low Procedure Risk: Low Anesthetic Plan Anesthetic Plan: MAC: Disposition: Standard PACU
[2022-12-29 12:40] VITALS: BMI 36.7
--- NOTE | 2022-12-29 12:47 | PC.NURSE ---
attempting again to try and urinate for sample before blood draw. checking for .
[2022-12-29 12:57] VITALS: BP 131/63; PULSE 73; RESP 16; TEMP 37; O2SAT 96
--- NOTE | 2022-12-29 13:08 | MHC.SHP ---
Pre-Procedural Eval Section A Date of Service: 12/29/22 Section B Chief Complaint: Dysphagia, Relevant Family History (Specify if Yes): No Relevant Social History: None Present Medications: see Short Stay Collaborative assessment Medical History: Significant History (Anemia Arthritis Asthma Fibroid) History of Previous Operations: Relevant previous surgery/procedure and date(s) (ankle surgery, c section ) Allergies: Allergies Allergy/AdvReac Type Severity Reaction Status Date / Time hydromorphone [From Dilaudid] Allergy Mild facial/hand Verified 12/24/22 11:05 numbness latex [Latex] Allergy Unknown UNKNOWN Verified 10/28/20 15:52 Review of Systems Sugical H&P ROS: Negative: Constitution, Cardiovascular, Respiratory, Neurological, Psychiatric, Hem-Onc, Allergic/Immunologic, Gastrointestinal, Genitourinary, Musculoskeletal, Integumentary, Endocrine and Eyes/Ears/Nose/Throat Exam Surgical H&P Exam: Normal: HEENT, Normal: Heart, Normal: Lungs, Normal: Extremities, Normal: Abdomen, Normal: Skin and Normal: Neurological Plan Diagnosis/Plan: Unchanged I have reviewed the history and physical and performed a pertinent physical examination on my patient. No changes have occurred unless specified. Time Spent With Patient Time: Total time managing care of this patient today ____ minutes.
--- NOTE | 2022-12-29 13:09 | W.PM.OPN ---
Operative Note Operative Note Date of Service: 12/29/22 Narrative: Procedure Description: EGD Indication: dysphagia Anesthesia: MAC FLEXIBLE TRANSORAL UPPER GASTROINTESTINAL ENDOSCOPY UPPER ENDOSCOPY Consent: Indications for the procedure and potential complications of bleeding, perforation, reaction to medications and missed diagnosis were discussed with the patient and informed consent was obtained. Instrument: Olympus GIF H 190 J mid size upper endoscope Monitoring: Vital signs and clinical assessment, continuous EKG monitoring, Pulse oximetry, Carbon Dioxide monitoring and blood pressure monitoring were done throughout the procedure. Procedure: The patient was placed in the left lateral decubitis position and pre-procedure medications were administered and a bite block was placed. The endoscope was inserted into the mouth and advanced under direct vision to the third part of duodenum. A careful inspection was made as the upper endoscope was withdrawn including a retroflexed examination of the proximal stomach; Findings and interventions are described below. Findings: Larynx: congestion and erythema of larynx noted Esophagus: GE junction at 36 cm, diaphragm hiatus at 38 cm, schatzki ring noted, with micro abscesses and patchy erythema, bx taken, and balloon dilation done to 15 mm at UES and 17 mm at lower esophagus. 2 cm sliding hiatal hernia noted Stomach: Patchy gastric erythema with superficial ulcers and erosions at the pre pyloric area . Biopsies were obtained. Grade 3 flap valve on retroflexed examination of the cardia. Duodenum: Patchy erythema in duodenal bulb noted, bx taken Intervention: Biopsies as noted above, ballon dilation Impression/Findings: laryngitis esophagitis gastritis and gastric ulcers duodenitis schatzki ring hiatal hernia PLAN: high dose PPI omeprazole 40 mg BID and repeat EGD in 3 months then titrate down on PPI will consider RAST testing at follow up reflux precautions check nsaid hx
[2022-12-29 13:34] VITALS: BP 101/52; PULSE 82; RESP 16; TEMP 36.5; O2SAT 94
[2022-12-29 13:49] VITALS: BP 120/79; PULSE 79; RESP 18; O2SAT 96
[2022-12-29 14:12] VITALS: TEMP 36.6
== END 2022-12-29 14:40 | disposition home or self-care (01) ==
PROVIDERS: PCP Internal Medicine; Visit Provider Internal Medicine Gastroenterology
PROC: 0DJ08ZZ Inspection of Upper Intestinal Tract, Via Natural or Artificial Opening Endoscopic (ICD-10-PCS; CPT 43235; principal; 2022-12-29 13:50)
DX: K22.2 Esophageal obstruction (principal); J04.0 Acute laryngitis; K29.70 Gastritis, unspecified, without bleeding; K25.9 Gastric ulcer, unspecified as acute or chronic, without hemorrhage or perforation; K29.80 Duodenitis without bleeding; K44.9 Diaphragmatic hernia without obstruction or gangrene; Z88.5 Allergy status to narcotic agent; Z91.040 Latex allergy status
CPT/HCPCS: 43249; 43239; 81025; 88305; 88342; C1726

== ENCOUNTER 2023-02-14 09:43 | Outpatient (AMB) | payer OTHER, SELFPAY ==
--- NOTE | 2023-02-14 09:43 | MHC.OFFVIS ---
Intake Intake Visit Reasons: post op egd from december Intake Note: Alea presents as a video call for a follow up EGD. CC: She states it has been better since starting Omeprazole. She has not been taking Ibuprofen for pain and she sees a difference since stopping it. Machine Rebuilder Required: No Allergies hydromorphone [From Dilaudid] Allergy (Mild, Verified 02/14/23 09:43) facial/hand numbness latex [Latex] Allergy (Unknown, Verified 02/14/23 09:43) UNKNOWN HPI post op egd from december HPI Details 33 yr old f being called for f/u RECAP: she had EGD for dysphagia 12/2022 RESULTS: Findings: Larynx: congestion and erythema of larynx noted Esophagus: GE junction at 36? cm, diaphragm hiatus at 38 cm, schatzki ring noted, with micro abscesses and patchy erythema, bx taken, and balloon dilation done to 15 mm at UES and 17 mm at lower esophagus. 2 cm sliding hiatal hernia noted Stomach: Patchy gastric erythema with superficial ulcers and erosions at the pre pyloric area . Biopsies were obtained. Grade 3 flap valve on retroflexed examination of the cardia. Duodenum: Patchy erythema in duodenal bulb noted, bx taken Intervention: Biopsies as noted above, ballon dilation Impression/Findings: laryngitis esophagitis gastritis and gastric ulcers duodenitis schatzki ring hiatal hernia PLAN: high dose PPI omeprazole 40 mg BID and repeat EGD in 3 months then titrate down on PPI will consider RAST testing at follow up reflux precautions check nsaid hx Path: A.? Duodenum, biopsy:? Duodenal mucosa with preserved villi and focal mild changes the raise the possibility of peptic/nonspecific duodenitis.? B.? Gastric ulcer, biopsy:? Superficial fragments of benign gastric mucosa with focal mild chronic active inflammation and marked regenerative changes, consistent with tissue adjacent to ulcer; negative for intestinal metaplasia and dysplasia (see comment).? C.? Stomach, random, biopsy:? Gastric body mucosa with minimal chronic inactive gastritis; negative for intestinal metaplasia and dysplasia (see comment).? D.? Esophagogastric junction, biopsy:? Squamous mucosa with hyperplasia and numerous intraepithelial eosinophils (up to over 70 per high-power field) and columnar mucosa with mild chronic inflammation; negative for intestinal metaplasia and dysplasia (see comment). E.? Esophagus, distal, biopsy:? Squamous mucosa with hyperplasia and numerous intraepithelial eosinophils (up to over 70 per high-power field); no columnar mucosa present (see comment). F.? Esophagus, proximal, biopsy:? Squamous mucosa with intraepithelial eosinophils (up to 30 per high-power field); no columnar mucosa present (see comment). INTERIM: she was placed on omeprazole 40 mg BID she feels good results no dysphagia no nausea, mild heartburn at times she has some swelling around umbilicus worried about a hernia she has stopped ibuprofen --was taking for a long time before EXAM some swelling above umbilicus good color talking easily PLAN: 1/ cont with omeprazole for the moment with BId dosing 2/ repeat EGD is pending 3/ refer surgery for assessment for umbilical pain PFSH Medical History Anemia Arthritis Asthma Fibroid Surgical History History of esophagogastroduodenoscopy (EGD) Social History Alcohol intake: never Patient Tobacco Use Status: Never used Tobacco Advance Directives Date on File: 12/01/22 service: No Current occupational status: employed Assessment & Plan Assessment & Plan (1) Food impaction of esophagus: Code(s): T18.128A - Food in esophagus causing other injury, initial encounter (2) Gastric ulcer: Code(s): K25.9 - Gastric ulcer, unspecified as acute or chronic, without hemorrhage or perforation (3) Esophagitis: Code(s): K20.90 - Esophagitis, unspecified without bleeding (4) Umbilical pain: Code(s): R10.33 - Periumbilical pain Orders: Referrals General Surgery Referral R10.33 - Periumbilical pain Telehealth Telehealth Location of provider rendering services: practice address Location of patient: address on file Patient Identification confirmed using: Name, : Yes Telehealth method: video Patient verbally consented to treatment: Yes Patient verbally consented to billing insurance company: Yes Patient informed of any privacy concerns related to visit: Yes Minutes spent on Phone/Video with Pt.: 11 Coding Level of Care Code Tele Est Pt Level 3 (54675) Diagnoses Food impaction of esophagus T18.128A Gastric ulcer K25.9 Esophagitis K20.90 Umbilical pain R10.33
== END 2023-02-14 11:53 | disposition home or self-care (01) ==
LOC: HO.HGI 09:43
PROVIDERS: PCP Internal Medicine; Visit Provider Internal Medicine Gastroenterology
DX: T18.128A Food in esophagus causing other injury, initial encounter (principal); K25.9 Gastric ulcer, unspecified as acute or chronic, without hemorrhage or perforation; K20.90 Esophagitis, unspecified without bleeding; R10.33 Periumbilical pain
CPT/HCPCS: 99213

== ENCOUNTER → 2023-02-14 09:43 | Outpatient (BNVA) | payer OTHER, SELFPAY | PROVIDERS: PCP Internal Medicine; Visit Provider Internal Medicine Gastroenterology ==

== ENCOUNTER 2023-02-22 09:33 | Outpatient (AMB) | payer OTHER, SELFPAY ==
--- NOTE | 2023-02-22 09:37 | A.OFFVIS_ITS ---
Intake Vital Signs 02/22/23 09:39 Height 5 ft 6.5 in Weight 235 lb 0.204 oz BMI 37.4 BP 115/66 Blood Pressure Location Rt brachial Position Sitting Pulse 73 Pulse Source Pulse Oximeter Temp 97.7 F Temp Source Temporal Artery Scan Pulse Oximetry (%) 97 Oxygen Delivery Method Room Air Intake Visit Reasons: (OV) umbilical hernia Pump House Operator Required: No Lock Fitter: Lock Fitter offered & declined Accompanied by: Self / Same As Patient Allergies hydromorphone [From Dilaudid] Allergy (Mild, Verified 02/22/23 09:40) facial/hand numbness latex [Latex] Allergy (Unknown, Verified 02/22/23 09:40) UNKNOWN Medication List - Last Reconciled 02/22/23 by Dre Armijo MD albuterol sulfate 2.5 mg inhalation Q4H PRN albuterol sulfate 90 mcg/actuation (Ventolin HFA) 2 puffs inhalation Q4H PRN budesonide-formoterol 80-4.5 mcg/actuation (Symbicort) 2 puffs inhalation Q12H ferrous sulfate 325 mg PO DAILY lidocaine 5% (Lidoderm) 1 patch topical DAILY omeprazole 40 mg PO BID rizatriptan take 1 tablet at onset of headache; if no relief, may repeat 1 tablet after at least 2 hrs PO HPI HPI Comments History of Present Illness Details The patient is a 33-year-old woman sent by Dr. Jamison in Gastroenterology because of umbilical pain. The patient has had her 2nd meat impaction and on upper endoscopy is noted to have both a hiatal hernia measuring approximately 2 cm in a Schatzki's ring. She is currently on b.i.d. PPI and has a follow-up upper endoscopy with Dr. Jamison for March. From that perspective, she is doing well but is noted umbilical pain that is been worsening over several years. The patient was noted to have anemia with a hemoglobin of 8.7, in November at the time of her esophageal meat impaction and had been taking ibuprofen at that time. Follow-up with Dr. Jamison is currently pending since the patient had increased eosinophils on esophageal biopsies at EGD. Patient reports that when she was 1-2 years old her parents told her she had an umbilical hernia repair, probably at [facility]. She does not recognize the terms gastroschisis nor omphalocele. She does note that there is a firmness in her umbilicus that is tender to palpation. It is also tender when traumatized like by the kitchen counter. There has been no drainage, and she does note that she had imaging done at [facility] which was either a CT or MRI that was normal per the patient, and she states that her valet parking attendant hinted that there may be a fibroid or some other valet parking attendant issue stuck in the umbilicus. She does have a history of via Pfannenstiel for twins, and in reviewing the EMR, she has a history of a laparoscopic ovarian cystectomy. The patient does report a history of some sort of cyst being infected above her umbilicus some number of years ago, and did not recall the laparoscopic valet parking attendant procedure for ovarian cyst but does note that she was told she has significant fibroids. [facility] Medical History (Updated 02/22/23 @ 10:22 by Dre Armijo MD) Anemia Arthritis Asthma Fibroid Surgical History History of esophagogastroduodenoscopy (EGD) History of ovarian cystectomy Hx of ankle fusion Hx of section Social History Alcohol intake: never Patient Tobacco Use Status: Never used Tobacco Advance Directives Date on File: 12/01/22 service: No Current occupational status: employed Review of Systems Const All systems reviewed & are unremarkable except as noted in HPI and below Reports as per HPI Physical Exam Vital Signs: Last Vital Signs Temp 97.7 F 02/22/23 09:39 Pulse 73 02/22/23 09:39 BP 115/66 02/22/23 09:39 Pulse Ox 97 02/22/23 09:39 Oxygen Delivery Method Room Air 02/22/23 09:39 BMI result Body Mass Index 37.4 The patient is non-toxic & in good spirits NC/AT, PERRLA, EOMI Mood, affect & judgment all appear appropriate Sclera anicteric conjunctiva pink and moist Oropharynx is clear with no aphthous ulcers, Mallampati class 4, mucous membranes moist Neck is supple with no masses, adenopathy or bruits Heart is regular, normal S1-S2 no rubs or murmurs Lungs are clear and equal anteriorly with no audible wheezing, rubs or dullness to percussion Abdomen is obese with 2 well-healed midline scars above and below the umbilicus. There is a hard, tender subcutaneous mass immediately below the umbilicus, but I do not appreciate a hernia on Valsalva as the nodule appears fixed. No HSM, rebound, rigidity, guarding, masses or bruits are present. Rectal exam is deferred Skin has good turgor and is free of rashes Extremities free of cyanosis clubbing edema Results Reviewed Results Reviewed: Labs from December 01, 2022 Patient had anemia with a hemoglobin of 8.7 with hypochromic microcytic indices in low iron studies Platelet count is 283 K, white count normal at 8.4 but the eosinophil count was elevated BUN was low at 8/creatinine 0.77 electrolytes within normal parameters Assessment & Plan Assessment & Plan (1) Umbilical pain: Code(s): R10.33 - Periumbilical pain (2) Morbid (severe) obesity due to excess calories: Code(s): E66.01 - Morbid (severe) obesity due to excess calories (3) Anemia: Code(s): D64.9 - Anemia, unspecified (4) Gastric ulcer: Code(s): K25.9 - Gastric ulcer, unspecified as acute or chronic, without hemorrhage or perforation Plan There is definitely something palpable in the patient's umbilicus that is tender to palpation. Since the patient reports an umbilical hernia repair younger than H2, it would be exceedingly uncommon to leave any sort of mesh at that age; and we discussed the fact that most umbilical hernias close on their own by age 5 and the operative intervention at that age implies a larger hernia that may have required a prosthetic. We reviewed options at this point: The 1st would be to obtain the diagnostic imaging of her abdomen and pelvis from [facility] which was done May,. The other option would be for me to repeat studies here at [place], however, if the patient is correct in that she was told she does not have a hernia, a different diagnostic modality may be required to assess the patient's symptoms and physical exam findings. Patient was in agreement with this plan and stated that she would likely obtain a disc and hand deliver it and schedule a 30 minute follow-up appointment so I can look at the study. The importance of follow-up with Dr. Jamison regarding her impaction and anemia was reviewed and apparently understood. Coding Level of Care Code New Pt Level 4 (68389) Diagnoses Umbilical pain R10.33 Morbid (severe) obesity due to excess calories E66.01 Anemia D64.9 Gastric ulcer K25.9
[2023-02-22 09:39] VITALS: BP 115/66; PULSE 73; TEMP 36.5; O2SAT 97; BMI 37.4
== END 2023-02-22 10:28 | disposition home or self-care (01) ==
PROVIDERS: PCP Internal Medicine; Visit Provider Surgery
DX: R10.33 Periumbilical pain (principal); E66.01 Morbid (severe) obesity due to excess calories; D64.9 Anemia, unspecified; K25.9 Gastric ulcer, unspecified as acute or chronic, without hemorrhage or perforation
CPT/HCPCS: 99204

== ENCOUNTER → 2023-02-22 09:33 | Outpatient (BNVA) | payer OTHER, SELFPAY | PROVIDERS: PCP Internal Medicine; Visit Provider Surgery | DX: R10.33 Periumbilical pain (principal); K25.9 Gastric ulcer, unspecified as acute or chronic, without hemorrhage or perforation; D64.9 Anemia, unspecified; E66.01 Morbid (severe) obesity due to excess calories; Z68.37 Body mass index [BMI] 37.0-37.9, adult | CPT/HCPCS: 99202 ==

== ENCOUNTER 2023-04-05 14:07 | Outpatient (REF) | payer OTHER, SELFPAY | END 2023-04-05 14:08 | disposition home or self-care (01) | LOC: HO.CT 14:07 | PROVIDERS: PCP Internal Medicine; Visit Provider Surgery | DX: R10.33 Periumbilical pain (principal); E66.01 Morbid (severe) obesity due to excess calories | CPT/HCPCS: 74177; Q9967 ==

== ENCOUNTER 2023-04-07 06:52 | Day surgery (SDC) | payer OTHER, SELFPAY ==
--- NOTE | 2023-04-06 12:04 | HO.ANESPROP2 ---
HPI - Anesthesia Eval Consult details Narrative: 33yo F for Upper Endoscopy s/p EGD 12/2022 with MAC [facility] Active Problems Active Problems: All Active Problems (Updated 02/22/23 @ 10:22 by Dre Armijo MD) Morbid (severe) obesity due to excess calories (Acute) Anemia (Acute) Umbilical pain (Acute) Esophagitis (Acute) Gastric ulcer (Acute) Food impaction of esophagus (Acute) Past Medical History Medical History Arthritis Asthma Fibroid Anemia Surgical History Surgical History Hx of ankle fusion History of ovarian cystectomy Hx of section History of esophagogastroduodenoscopy (EGD) History of Problems with Anesthesia: No Social History Social History Alcohol intake: never Patient Tobacco Use Status: Never used Tobacco Advance Directives Date on File: 12/01/22 service: No Current occupational status: employed Meds Allergies Allergy/AdvReac Type Severity Reaction Status Date / Time hydromorphone [From Dilaudid] Allergy Mild facial/hand Verified 04/07/23 07:31 numbness latex [Latex] Allergy Unknown UNKNOWN Verified 04/07/23 07:31 Home Medications Medication Instructions Recorded Confirmed Last Taken Type albuterol sulfate 2.5 mg/3 mL 2.5 mg inhalation Q4H PRN wheezing 12/01/22 04/07/23 Unknown History (0.083 %) solution for nebulization albuterol sulfate 90 mcg/actuation 2 puff inhalation Q4H PRN wheezing 12/01/22 04/07/23 04/07/23 History aerosol inhaler (Ventolin HFA) rizatriptan 5 mg tablet See Rx Instructions PO .COMPLEX 02/14/23 04/07/23 Unknown History budesonide-formoterol HFA 80 2 puff inhalation Q12H 02/22/23 04/07/23 Unknown History mcg-4.5 mcg/actuation aerosol inhaler (Symbicort) Exam Exam Date and Time: April 06, 2023 1204 Pertinent Lab Results Pertinent Lab Results: Laboratory Tests 12/01/22 05:31 WBC 8.4 Hgb 8.7 L Hct 30.7 L Plt Count 283 Sodium 140 Potassium 4.1 Chloride 110 H Carbon Dioxide 24 BUN 8 L Creatinine 0.77 Assessment and Plan Assessment Anesthesia Assessment: Chart Reviewed Final Anesthetic Review History of Problems with Anesthesia: No
[2023-04-07 07:10] VITALS: BMI 38.7
[2023-04-07] MEDS: Lactated Ringers 1,000 ML 100 ML IVCONT (07:14)
[2023-04-07 07:29] VITALS: BP 146/72; PULSE 66; RESP 18; TEMP 36.6; O2SAT 98
--- NOTE | 2023-04-07 08:08 | P.CONAN_ITS ---
HPI - Anesthesia Eval Consult details Narrative: for upper GI [facility] Active Problems Active Problems: All Active Problems (Updated 02/22/23 @ 10:22 by Dre Armijo MD) Morbid (severe) obesity due to excess calories (Acute) Anemia (Acute) Umbilical pain (Acute) Esophagitis (Acute) Gastric ulcer (Acute) Food impaction of esophagus (Acute) Past Medical History Medical History Arthritis Asthma Fibroid Anemia Family History Family history of problems with anesthesia: No Surgical History Surgical History Hx of ankle fusion History of ovarian cystectomy Hx of section History of esophagogastroduodenoscopy (EGD) History of Problems with Anesthesia: No Social History Social History Alcohol intake: never Patient Tobacco Use Status: Never used Tobacco Are you DNR?: No Advance Directives: No Advance Directives Information Provided: Yes Advance Directives Date on File: 12/01/22 Nutrition Risks: No Nutritional Risk FDLMP: now service: No Current occupational status: employed Meds Allergies Allergy/AdvReac Type Severity Reaction Status Date / Time hydromorphone [From Dilaudid] Allergy Mild facial/hand Verified 04/07/23 07:31 numbness latex [Latex] Allergy Unknown UNKNOWN Verified 04/07/23 07:31 Active Medications: Current Medications Albuterol Sulfate (Albuterol Sulfate (0.083%) 2.5 Mg/3 Ml Vial.Neb) 2.5 mg INHALE ONCE PRN PRN Reason: Shortness of Breath/Wheezing Lactated Ringer's (Lr) 1,000 mls @ 100 mls/hr IVCONT .Q10H JANE Last Admin: 04/07/23 07:14 Dose: 100 mls/hr Home Medications Medication Instructions Recorded Confirmed Last Taken Type albuterol sulfate 2.5 mg/3 mL 2.5 mg inhalation Q4H PRN wheezing 12/01/22 04/07/23 Unknown History (0.083 %) solution for nebulization albuterol sulfate 90 mcg/actuation 2 puff inhalation Q4H PRN wheezing 12/01/22 04/07/23 04/07/23 History aerosol inhaler (Ventolin HFA) rizatriptan 5 mg tablet See Rx Instructions PO .COMPLEX 02/14/23 04/07/23 Unknown History budesonide-formoterol HFA 80 2 puff inhalation Q12H 02/22/23 04/07/23 Unknown History mcg-4.5 mcg/actuation aerosol inhaler (Symbicort) Exam Exam Date and Time: April 07, 2023 0808 Height,Weight and Vital Signs: Height 5 ft 6 in Weight 108.862 kg Last Vital Signs Temp 97.9 F 04/07/23 07:29 Pulse 66 04/07/23 07:29 Resp 18 04/07/23 07:29 BP 146/72 H 04/07/23 07:29 Pulse Ox 98 04/07/23 07:29 O2 Del Method Room Air 04/07/23 07:29 Airway Mallampati Class: II TM Dist: >3cm Neck ROM: Full Heart: rrr Lungs: cta Assessment and Plan Assessment Anesthesia Assessment: Anesthesia Plan Discussed and Chart Reviewed Final Anesthetic Review Family History of Problems with Anesthesia: No History of Problems with Anesthesia: No NPO: Yes ASA Class: III Final Preanesthetic Review: No Changes in Pt Med Stat, Meds/Allgs Chart Reviewed, Consent Obtained/Reviewed and Anes Risks/Benef Reviewed Patient Risk: Intermediate Procedure Risk: Low Anesthetic Plan Anesthetic Plan: MAC: Disposition: Standard PACU
[2023-04-07 08:38] LABS: HCG Quantitative < 2 mIU/mL
--- NOTE | 2023-04-07 08:53 | MHC.SHP ---
Pre-Procedural Eval Section A Date of Service: 04/07/23 Section B Chief Complaint: Dysphagia, unspecified Relevant Family History (Specify if Yes): No Relevant Social History: None Present Medications: None Medical History: Significant History (Arthritis Asthma Fibroid Anemia) History of Previous Operations: Relevant previous surgery/procedure and date(s) (Hx of ankle fusion History of ovarian cystectomy Hx of section History of esophagogastroduodenoscopy (EGD)) Allergies: Allergies Allergy/AdvReac Type Severity Reaction Status Date / Time hydromorphone [From Dilaudid] Allergy Mild facial/hand Verified 04/07/23 07:31 numbness latex [Latex] Allergy Unknown UNKNOWN Verified 04/07/23 07:31 Review of Systems Sugical H&P ROS: Negative: Constitution, Cardiovascular, Respiratory, Neurological, Psychiatric, Hem-Onc, Allergic/Immunologic, Gastrointestinal, Genitourinary, Musculoskeletal, Integumentary, Endocrine and Eyes/Ears/Nose/Throat Exam Surgical H&P Exam: Normal: HEENT, Normal: Heart, Normal: Lungs, Normal: Extremities, Normal: Abdomen, Normal: Skin and Normal: Neurological Plan Diagnosis/Plan: Unchanged I have reviewed the history and physical and performed a pertinent physical examination on my patient. No changes have occurred unless specified. Time Spent With Patient Time: Total time managing care of this patient today ____ minutes.
--- NOTE | 2023-04-07 09:17 | W.PM.OPN ---
Operative Note Operative Note Date of Service: 04/07/23 Narrative: Procedure Description: EGD Indication: esophagitis, gastritis Anesthesia: MAC FLEXIBLE TRANSORAL UPPER GASTROINTESTINAL ENDOSCOPY UPPER ENDOSCOPY Consent: Indications for the procedure and potential complications of bleeding, perforation, reaction to medications and missed diagnosis were discussed with the patient and informed consent was obtained. Instrument: Olympus GIF H 190 J mid size upper endoscope Monitoring: Vital signs and clinical assessment, continuous EKG monitoring, Pulse oximetry, Carbon Dioxide monitoring and blood pressure monitoring were done throughout the procedure. Procedure: The patient was placed in the left lateral decubitis position and pre-procedure medications were administered and a bite block was placed. The endoscope was inserted into the mouth and advanced under direct vision to the third part of duodenum. A careful inspection was made as the upper endoscope was withdrawn including a retroflexed examination of the proximal stomach; Findings and interventions are described below. Findings: Larynx: normal Esophagus: GE junction at 36 cm, diaphragm hiatus at 38 cm, schatzki ring noted, with v mild erythema at GEJ, 2 cm sliding hiatal hernia noted Stomach: Patchy gastric erythema with superficial ulcers and erosions at the pre pyloric area . Biopsies were obtained. Grade 3 flap valve on retroflexed examination of the cardia. Duodenum: normal Intervention: Biopsies as noted above, Impression/Findings: esophagitis gastritis and erosions schatzki ring hiatal hernia PLAN: overall appearances are much better than last time high dose PPI omeprazole 40 mg BID for another 3 months then titrate down reflux precautions
[2023-04-07 09:20] VITALS: BP 110/56; PULSE 64; RESP 20; TEMP 36.3; O2SAT 99
[2023-04-07 09:35] VITALS: BP 114/67; PULSE 61; RESP 18; O2SAT 99
[2023-04-07 09:48] VITALS: BP 119/71; PULSE 63; RESP 16; TEMP 36.3; O2SAT 99
== END 2023-04-07 10:13 | disposition home or self-care (01) ==
PROVIDERS: PCP Internal Medicine; Visit Provider Internal Medicine Gastroenterology
PROC: 0DJ08ZZ Inspection of Upper Intestinal Tract, Via Natural or Artificial Opening Endoscopic (ICD-10-PCS; CPT 43235; principal; 2023-04-07 08:20)
DX: K25.9 Gastric ulcer, unspecified as acute or chronic, without hemorrhage or perforation (principal); K20.90 Esophagitis, unspecified without bleeding; K22.2 Esophageal obstruction; K44.9 Diaphragmatic hernia without obstruction or gangrene; R13.10 Dysphagia, unspecified; R10.33 Periumbilical pain; D64.9 Anemia, unspecified; J45.909 Unspecified asthma, uncomplicated; Z79.899 Other long term (current) drug therapy
CPT/HCPCS: 43239; 36415; 84702; 88305; 88342; J1100

== ENCOUNTER → 2023-04-07 06:52 | Outpatient (BNV) | payer OTHER, SELFPAY | PROVIDERS: PCP Internal Medicine; Visit Provider Internal Medicine Gastroenterology | DX: K29.70 Gastritis, unspecified, without bleeding (principal); K20.90 Esophagitis, unspecified without bleeding; K22.2 Esophageal obstruction | CPT/HCPCS: 43239 ==

== ENCOUNTER 2023-04-12 22:26 | Emergency (ER) | payer OTHER, SELFPAY ==
[2023-04-12 22:41] VITALS: BP 110/61; PULSE 62; RESP 18; TEMP 36.7; O2SAT 97; BMI 38.7
[2023-04-13 00:20] LABS: Appearance Urine Cloudy; Color Urine Yellow; Glucose Urine UA Negative (Negative); Leukocyte Esterase Urine Small (1+) (Negative); Nitrite Urine Negative (Negative); PH 7.5 (5.0-9.0); Specific Gravity - Urine 1.025 (1.005-1.025); UMIC TRIGGER UACC YES; Urine Blood Large (3+) (Negative); Urine Ketones Negative (Negative); Urine Protein Trace mg/dL (Neg-Trace)
[2023-04-13 00:21] LABS: UPreg QC Valid YES; Urine Pregnancy NEGATIVE (NEGATIVE)
[2023-04-13 00:23] LABS: Imm Gran Abs Auto 0.02 X10*3/uL (0.00-0.03); Imm Gran Pct Auto 0.3 % (0.0-0.4); Mean Corpuscular Hemoglobin 19.4 pg (27.0-33.0); PLT ABN DIST 1; PLT CLUMP 1; Red Cell Distribution Width 19.4 % (11.0-16.0); SCAN SMEAR FLAG 1
[2023-04-13 00:25] LABS: Basophils Absolute Auto 0.1 X10*3/uL (0.0-0.2); Basophils Percent Auto 0.7 % (0-2); Eosinophils Absolute Auto 0.5 X10*3/uL (0.0-0.4); Eosinophils Percent Auto 7.2 % (0-4); Hematocrit 33.9 % (37.0-47.0); Hemoglobin 9.8 g/dl (12.0-16.0); Lymphocytes Absolute Auto 2.5 X10*3/uL (1.2-4.9); Lymphocytes Percent Auto 33.8 % (20-40); Mean Corpuscular HGB Conc 28.9 g/dl (31.0-35.0); Mean Corpuscular Volume 67.3 fL (80.0-98.0); Monocytes Absolute Auto 0.6 X10*3/uL (0.1-1.2); Monocytes Percent Auto 7.4 % (2-11); Neutrophils Absolute Auto 3.8 x10*3/uL (2.0-8.3); Neutrophils Percent Auto 50.6 % (45-73); Red Blood Count 5.04 X10*6/uL (4.20-5.50)
[2023-04-13 00:28] LABS: MANUAL DIFF FLAG NO; White Blood Count 7.5 X10*3/uL (4.8-10.8)
[2023-04-13 00:32] LABS: Alanine Aminotransferase 26 U/L (0-31); Albumin Level 3.8 g/dL (3.5-5.0); Alkaline Phosphatase 101 U/L (39-117); Anion Gap 13 (12-20); Aspartate Amino Transferase 29 U/L (5-31); Bacteria Urine 4+ (None Seen); Bilirubin Direct < 0.2 mg/dL (0.0-0.5); Bilirubin Total 0.1 mg/dL (0.0-1.0); Blood Urea Nitrogen 8 mg/dL (9-16); Calcium 8.8 mg/dL (8.4-10.2); Carbon Dioxide 21 mmol/L (22-29); Chloride 110 mmol/L (96-108); Creatinine Clr Calc Pharmacy 112.3; Estimated Glomerular Filt Rate > 60; Glucose Random 90 mg/dL (60-115); Hyaline Casts Urine 0-2 /LPF (0-2); Lipase 21 U/L (8-78); Potassium 3.8 mmol/L (3.3-5.1); RBC Urine 0-2 /HPF (0-2); Sodium 140 mmol/L (135-145); Total Protein 7.5 g/dL (6.5-8.0); UACC Culture Trigger YES
[2023-04-13 00:44] LABS: Platelet Count 291 X10*3/uL (160-400)
[2023-04-13 01:59] VITALS: BP 98/57; PULSE 58; RESP 16; TEMP 36.6; O2SAT 97
--- NOTE | 2023-04-13 02:45 | ED_ITS ---
HPI - Abdominal Pain General Chief Complaint: Abdominal Pain Stated Complaint: pain in umbilical area Time Seen by Provider: 04/13/23 02:22 Source: patient and old records reviewed Mode of arrival: ambulatory Limitations: no limitations History of Present Illness HPI narrative: 33 yo female with PMH of anemia, gastric ulcer, impaction of esophagus, fibroids sees Dr. 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 She notes the pain has become worse and she has a 145pm appointment today. No fevers, n/v/d, GI or associated symptoms. No fevers MD elicited complaint: abdominal pain Pertinent past history: other (chronic intermittent abdominal pain) Onset (ago): year(s) Pain Consistency: intermittent Location: periumbilical Severity: moderate Quality: stabbing Radiation: none Migration to: no migration Exacerbating factors: nothing Relieving factors: nothing Context: history of similar episodes Associated symptoms: denies other symptoms Related Data Home Medications Medication Instructions Recorded Confirmed albuterol sulfate 2.5 mg/3 mL 2.5 mg inhalation Q4H PRN wheezing 12/01/22 04/07/23 (0.083 %) solution for nebulization albuterol sulfate 90 mcg/actuation 2 puff inhalation Q4H PRN wheezing 12/01/22 04/07/23 aerosol inhaler (Ventolin HFA) rizatriptan 5 mg tablet See Rx Instructions PO .COMPLEX 02/14/23 04/07/23 budesonide-formoterol HFA 80 2 puff inhalation Q12H 02/22/23 04/07/23 mcg-4.5 mcg/actuation aerosol inhaler (Symbicort) Previous Rx's Medication Instructions Recorded ferrous sulfate 325 mg (65 mg 325 mg PO DAILY #30 tabs 12/01/22 iron) tablet omeprazole 40 mg capsule,delayed 40 mg PO BID #120 caps 12/29/22 release ondansetron 4 mg disintegrating 4 mg PO Q8H PRN nausea and 04/13/23 tablet vomiting #20 tabs oxycodone 5 mg tablet 5 mg PO TID PRN pain #12 tabs 04/13/23 Allergies Allergy/AdvReac Type Severity Reaction Status Date / Time hydromorphone [From Dilaudid] Allergy Mild facial/hand Verified 04/12/23 22:44 numbness latex [Latex] Allergy Unknown UNKNOWN Verified 04/12/23 22:44 Review of Systems Review of Systems Constitutional : No Weight loss, No Fever, No Chills Cardiovascular : No Chest Pain, No SOB, NoEdema Respiratory : No Cough, No Sputum, No Wheezing Gastrointestinal : no Nausea, no Vomiting, no Diarrhea, positive abdominal Pain, No Hematochezia, No Melena Genitourinary : No Dysuria, No Urinary Frequency, No Hematuria, No Urgency Musculoskeletal : No joint pain, No Myalgias, No Joint Swelling Skin : No Skin Lesions, No rash Neuro : No Weakness, No Numbness, No Dizziness, No Headache Psych : No Anxiety/Panic, No Depression All other systems reviewed and are negative. [facility] Past Medical History Attestation statement: The following information was validated with the patient. Source: old records reviewed Medical History Arthritis Asthma Fibroid Anemia Surgical History Hx of ankle fusion History of ovarian cystectomy Hx of section History of esophagogastroduodenoscopy (EGD) Social History Social History Alcohol intake: never Patient Tobacco Use Status: Never used Tobacco Smoked in Last 30 Days: No Use of substances other than those prescribed or required for medical reasons: No Advance Directives: Yes Advance Directives on File: Yes Advance Directives Date on File: 12/01/22 Patient : No service: No Current occupational status: employed Physical Exam ED Vital Signs: Vital Signs - 24 hr 04/12/23 22:41 04/13/23 01:59 Temperature 98.1 F 97.8 F Pulse Rate 62 58 Respiratory Rate 18 16 Blood Pressure 110/61 98/57 L Pulse Oximetry 97 97 Oxygen Delivery Method Room Air Room Air BMI result Body Mass Index 38.7 Appearance: Alert. Oriented X3. No acute distress. Eyes: Pupils equal, round and reactive to light. ENT: Pharynx normal. Neck: Normal inspection. Neck supple. CVS: Normal heart rate and rhythm. Pulses normal. Respiratory: No respiratory distress. Breath sounds normal. Abdomen: Soft and tenderness only at the umbilicus I can feel an area palpable but no overlying warmth or erythema it is hard and tender no hernia felt Skin: Skin warm and dry. Normal skin color. Normal skin turgor. Extremities: No lower extremity edema. No calf ttp Neuro: Oriented X 3. No motor deficit. No sensory deficit. Medical Decision Making Medical Decision Making [facility] Narrative: 33 yo female with PMH of anemia, gastric ulcer, impaction of esophagus, fibroids here with c/o umbilical pain at this time labs reassuring just had CT scan no associated GI or symptoms doubt hernia will give pain medications and reassess. She has appointment with surgery suspect she can be seen in office. Differential Diagnosis Differential Diagnoses: The differential diagnosis associated with the presentation includes chronic mass, doubt hernia Admission/Observation Consideration of admission/observation: Escalation of care including admission/observation considered pain improved stable for DC and has appointment today Lab Data [facility] Lab Attestation statement: I reviewed the patient's lab results. 04/13/23 00:11 04/13/23 00:11 Labs: Lab Results 04/13/23 04/13/23 Range/Units 00:11 00:12 WBC 7.5 (4.8-10.8) X10*3/uL RBC 5.04 (4.20-5.50) X10*6/uL Hgb 9.8 L (12.0-16.0) g/dl Hct 33.9 L (37.0-47.0) % MCV 67.3 L (80.0-98.0) fL MCH 19.4 L (27.0-33.0) pg MCHC 28.9 L (31.0-35.0) g/dl RDW 19.4 H (11.0-16.0) % Plt Count 291 (160-400) X10*3/uL MPV Not Reportable Immature Gran % (Auto) 0.3 (0.0-0.4) % Neut % (Auto) 50.6 (45-73) % Lymph % (Auto) 33.8 (20-40) % [place] % (Auto) 7.4 (2-11) % Eos % (Auto) 7.2 H (0-4) % Baso % (Auto) 0.7 (0-2) % Lymph # (Auto) 2.5 (1.2-4.9) X10*3/uL [place] # (Auto) 0.6 (0.1-1.2) X10*3/uL Eos # (Auto) 0.5 H (0.0-0.4) X10*3/uL Baso # (Auto) 0.1 (0.0-0.2) X10*3/uL Abs Immat Gran (auto) 0.02 (0.00-0.03) X10*3/uL Absolute Neuts (auto) 3.8 (2.0-8.3) x10*3/uL Absolute Nucleated RBC 0.000 (0.0-0.012) X10*3/uL Nucleated RBC % (auto) 0.0 (0.0-0.2) /100WBC Sodium 140 (135-145) mmol/L Potassium 3.8 (3.3-5.1) mmol/L Chloride 110 H (96-108) mmol/L Carbon Dioxide 21 L (22-29) mmol/L Anion Gap 13 (12-20) BUN 8 L (9-16) mg/dL Creatinine 0.89 (0.5-1.4) mg/dL Estim Creat Clear Calc 112.3 Estimated GFR > 60 Random Glucose 90 (60-115) mg/dL Calcium 8.8 D (8.4-10.2) mg/dL Total Bilirubin 0.1 (0.0-1.0) mg/dL Direct Bilirubin < 0.2 (0.0-0.5) mg/dL AST 29 (5-31) U/L ALT 26 (0-31) U/L Alkaline Phosphatase 101 (39-117) U/L Total Protein 7.5 (6.5-8.0) g/dL Albumin 3.8 (3.5-5.0) g/dL Lipase 21 (8-78) U/L Urine Color Yellow Urine Appearance Cloudy Urine pH 7.5 (5.0-9.0) Ur Specific [place] 1.025 (1.005-1.025) Urine Protein Trace (Neg-Trace) mg/dL Urine Glucose (UA) Negative (Negative) mg/dL Urine Ketones Negative (Negative) mg/dL Urine Blood Large (3+) H (Negative) Urine Nitrite Negative (Negative) Ur Leukocyte Esterase Small (1+) H (Negative) Urine RBC 0-2 (0-2) /HPF Urine WBC 6-10 H (0-5) /HPF Ur Squamous Epith Cells 11-20 (0-2) /HPF Urine Bacteria 4+ (None Seen) Hyaline Casts 0-2 (0-2) /LPF Urine Test NEGATIVE (NEGATIVE) Radiology Impression Discussion of test interpretation with radiology: I have reviewed the radiologist's reading. Independent Historian Clinical information obtained from an independent historian. History obtained from or confirmed by: Spouse External Record Review External record reviewed: Office record Tests considered The following testing was considered but not selected: CT scan but exam appears similar to surgery office note and just had CT scan labs reassuring Prescription Management I considered prescription management with: Pain Medication Medications Administered Discontinued Medications Generic Name Dose Route Start Last Admin Trade Name Freq PRN Reason Stop Dose Admin Ondansetron HCl 4 mg 04/13/23 02:35 04/13/23 02:57 Ondansetron Hcl 4 Mg/2 Ml Vial IVPUSH 04/13/23 02:36 4 mg ONCE ONE Administration Oxycodone HCl 10 mg 04/13/23 02:36 04/13/23 02:57 Oxycodone Hcl Immed Release 5 Mg Tablet PO 04/13/23 02:37 10 mg ONCE ONE Administration Discharge Plan Discharge Clinical Impression: Umbilical pain Patient Disposition: Home, Self-Care Instructions: Abdominal Pain (ED) Additional Instructions: return for fevers, vomiting, worsening pain, or any other concerns. keep your appointment today Prescriptions: New ondansetron 4 mg tablet,disintegrating 4 mg PO Q8H PRN (Reason: nausea and vomiting) Qty: 20 0RF oxycodone 5 mg tablet 5 mg PO TID PRN (Reason: pain) Qty: 12 0RF Rx Instructions: Partial Fill upon patient request. No Action omeprazole 40 mg capsule,delayed release(DR/EC) 40 mg PO BID Qty: 120 1RF albuterol sulfate 2.5 mg /3 mL (0.083 %) solution for nebulization 2.5 mg inhalation Q4H PRN (Reason: wheezing) albuterol sulfate [Ventolin HFA] 90 mcg/actuation HFA aerosol inhaler 2 puff inhalation Q4H PRN (Reason: wheezing) ferrous sulfate 325 mg (65 mg iron) tablet 325 mg PO DAILY Qty: 30 0RF budesonide-formoterol [Symbicort] 80-4.5 mcg/actuation HFA aerosol inhaler 2 puff inhalation Q12H rizatriptan 5 mg tablet See Rx Instructions PO .COMPLEX Rx Instructions: take 1 tablet at onset of headache; if no relief, may repeat 1 tablet after at least 2 hrs PO Stand Alone Forms: Work/School Release
[2023-04-13] MEDS: ondansetron HCL 4 MG/2 ML VIAL IVPUSH (02:57)
[2023-04-13] MEDS: oxyCODONE HCl Immed Release 5 MG TABLET 10 MG PO (02:57)
--- NOTE | 2023-04-13 04:14 | PC.NURSE ---
pt reported at d/c, pain increased to 6/10, pt ambulatory, gait steady
== END 2023-04-13 04:15 | disposition home or self-care (01) ==
PROVIDERS: Emergency Provider Emergency Medicine; PCP Internal Medicine
DX: R10.33 Periumbilical pain (principal); Z79.899 Other long term (current) drug therapy
CPT/HCPCS: 36415; 80048; 80076; 81001; 81025; 83690; 85025; 87086; 96374; 99212; 99284; 99285; J2405

== ENCOUNTER 2023-04-13 13:41 | Outpatient (AMB) | payer OTHER, SELFPAY ==
[2023-04-13 13:43] VITALS: BP 118/63; PULSE 69; BMI 37.4
--- NOTE | 2023-04-13 13:43 | MHC.OFFVIS ---
Intake Vital Signs 04/13/23 13:43 Height 5 ft 6 in Weight 232 lb BMI 37.4 BP 118/63 Blood Pressure Location Rt brachial Position Sitting Pulse 69 Intake Visit Reasons: umbilical pain, ? recurrent hernia Intake Note: This patient presents for an assessment for umbilical pain. Patient c/o; reports umbilical pain, reports had a Ct-Scan on 04/05/2023, reports nausea, reports dizziness. Interlocking Tower Operator Required: No Accompanied by: Spouse Allergies hydromorphone [From Dilaudid] Allergy (Mild, Verified 04/13/23 13:52) facial/hand numbness latex [Latex] Allergy (Unknown, Verified 04/13/23 13:52) UNKNOWN Medication List - Last Reconciled 04/13/23 by Vladimir Crocker MD albuterol sulfate 2.5 mg inhalation Q4H PRN albuterol sulfate 90 mcg/actuation (Ventolin HFA) 2 puffs inhalation Q4H PRN budesonide-formoterol 80-4.5 mcg/actuation (Symbicort) 2 puffs inhalation Q12H ferrous sulfate 325 mg PO DAILY omeprazole 40 mg PO BID ondansetron 4 mg PO Q8H PRN oxycodone 5 mg PO TID PRN rizatriptan take 1 tablet at onset of headache; if no relief, may repeat 1 tablet after at least 2 hrs PO HPI umbilical pain, ? recurrent hernia HPI Details She is here for follow-up for her umbilical pain. She has had this for over a year now. She describes this as pain and tenderness specifically on the upper part her over umbilicus itself. She had been seen by Dr. Armijo last January, for this same problem. She was sent for a CT scan which she had done last week. She says that she has had significant pain and tenderness on the umbilicus for a few days now. She thought that this appeared a little swollen yesterday. She denies any drainage or redness from the area. [facility] Medical History Arthritis Asthma Fibroid Anemia Surgical History Hx of ankle fusion History of ovarian cystectomy Hx of section History of esophagogastroduodenoscopy (EGD) Social History Alcohol intake: never Patient Tobacco Use Status: Never used Tobacco Advance Directives Date on File: 12/01/22 service: No Current occupational status: employed Review of Systems Const Denies chills and Denies fever(s) Card Denies chest pain, Denies dyspnea and Denies dyspnea on exertion Resp Details: Has known asthma with occasional episodes Denies cough, Denies dyspnea and Denies dyspnea on exertion GI Denies hematochezia and Denies change in bowel habits Denies hematuria Musc Denies back pain and Denies limited range of motion Neuro Denies focal weakness and Denies convulsions Psych Denies depression and Denies mood swings Physical Exam Vital Signs: Last Vital Signs Pulse 69 04/13/23 13:43 BP 118/63 04/13/23 13:43 BMI result Body Mass Index 37.4 Const General: comfortable and no acute distress Orientation/consciousness: patient oriented x3 Neck Neck: Yes no lymphadenopathy Resp Auscultation: clear to auscultation bilaterally Cardio Rhythm: regular rhythm GI Other: Point tenderness on the umbilicus, no redness, no discharge, obvious hernia, no masses, she has multiple scars surrounding her umbilicus from previous laparoscopic procedures Palpation (GI): Soft to palpation, nontender and no guarding Neuro General: patient oriented x3 Assessment & Plan Assessment & Plan (1) Umbilical pain: Code(s): R10.33 - Periumbilical pain Plan: She has had this umbilical pain for over a year now although she says that this felt worse the past few days. She had a CAT scan done just a week ago. Aside from some mild inflammatory changes around the umbilicus, there was no identifiable hernia, or any other pathology. Her transverse colon is immediately under the umbilicus but there is no inflammatory changes in this and there are good planes surrounding this colon. She does have large cysts in her uterus and 1 of the seems to be just under and to the left of the umbilicus. I am uncertain if this is contributing to her umbilical pain and tenderness. She says has been seeing a bridge engineer and knows about this large this for years now. I did advise her to try to see if she can be re-evaluated for this large cyst. I am going to prescribe her some tramadol in the meantime for symptomatic relief of her pain. I have instructed her to do warm compresses to the area. She says she has a follow-up with Dr. Armijo next week. Coding Level of Care Code Est Pt Level 3 (15238) Diagnoses Umbilical pain R10.33
== END 2023-04-13 14:07 | disposition home or self-care (01) ==
PROVIDERS: PCP Internal Medicine; Visit Provider Surgery
DX: R10.33 Periumbilical pain (principal)
CPT/HCPCS: 99213

== ENCOUNTER 2023-04-20 09:27 | Outpatient (AMB) | payer OTHER, SELFPAY ==
--- NOTE | 2023-04-20 09:31 | MHC.OFFVIS ---
Intake Vital Signs 04/20/23 09:32 Height 5 ft 6 in Weight 235 lb 7.259 oz BMI 38.0 BP 108/70 Blood Pressure Location Rt brachial Position Sitting Pulse 69 Pulse Source Pulse Oximeter Temp 97.2 F Temp Source Tympanic Pulse Oximetry (%) 100 Oxygen Delivery Method Room Air Intake Visit Reasons: CT results Diesel Engine Engineer Required: No Body Mechanic Apprentice: Body Mechanic Apprentice offered & declined Allergies hydromorphone [From Dilaudid] Allergy (Mild, Verified 04/20/23 09:34) facial/hand numbness latex [Latex] Allergy (Unknown, Verified 04/20/23 09:34) UNKNOWN Medication List - Last Reconciled 04/20/23 by Dre Armijo MD albuterol sulfate 2.5 mg inhalation Q4H PRN albuterol sulfate 90 mcg/actuation (Ventolin HFA) 2 puffs inhalation Q4H PRN budesonide-formoterol 80-4.5 mcg/actuation (Symbicort) 2 puffs inhalation Q12H ferrous sulfate 325 mg PO DAILY omeprazole 40 mg PO BID ondansetron 4 mg PO Q8H PRN oxycodone 5 mg PO TID PRN rizatriptan take 1 tablet at onset of headache; if no relief, may repeat 1 tablet after at least 2 hrs PO tramadol 50 mg PO TID PRN HPI HPI Comments History of Present Illness Details The patient is a 33-year-old woman sent by Dr. Jamison in Gastroenterology because of umbilical pain. The patient has had her 2nd meat impaction and on upper endoscopy is noted to have both a hiatal hernia measuring approximately 2 cm in a Schatzki's ring. She is currently on b.i.d. PPI and has a follow-up upper endoscopy with Dr. Jamison for March. From that perspective, she is doing well but is noted umbilical pain that is been worsening over several years. The patient was seen in the emergency room last week on 04/13/2023 due to abdominal/umbilical pain. She notes that it is improved at this time and in discussion, she knows she has a large fibroids and sees her cargo broker at [facility]. She has a follow-up later this year, but notes that she has concerns over hysterectomy due to interest in becoming as well as concerns about the side effects of any medications regarding fibroids. She noted that she was hopeful that she had a recurrent umbilical hernia so she could avoid these cargo broker issues. We reviewed her CT findings that there is no evidence of a recurrent hernia and the scar tissue or omental thickening should be discussed with cargo broker given her age and symptoms. The patient was noted to have anemia with a hemoglobin of 8.7, in November at the time of her esophageal meat impaction and had been taking ibuprofen at that time. Follow-up with Dr. Jamison is currently pending since the patient had increased eosinophils on esophageal biopsies at EGD. Patient reports that when she was 1-2 years old her parents told her she had an umbilical hernia repair, probably at [facility]. She does not recognize the terms gastroschisis nor omphalocele. She does note that there is a firmness in her umbilicus that is tender to palpation. It is also tender when traumatized like by the kitchen counter. There has been no drainage, and she does note that she had imaging done at [facility] which was either a CT or MRI that was normal per the patient, and she states that her cargo broker hinted that there may be a fibroid or some other cargo broker issue stuck in the umbilicus. She does have a history of via Pfannenstiel for twins, and in reviewing the EMR, she has a history of a laparoscopic ovarian cystectomy. The patient does report a history of some sort of cyst being infected above her umbilicus some number of years ago, and did not recall the laparoscopic cargo broker procedure for ovarian cyst but does note that she was told she has significant fibroids. [facility] Medical History (Updated 04/20/23 @ 10:03 by Dre Armijo MD) Arthritis Asthma Fibroid Anemia Surgical History Hx of ankle fusion History of ovarian cystectomy Hx of section History of esophagogastroduodenoscopy (EGD) Social History Alcohol intake: never Patient Tobacco Use Status: Never used Tobacco Advance Directives Date on File: 12/01/22 service: No Current occupational status: employed Review of Systems Const All systems reviewed & are unremarkable except as noted in HPI and below Reports as per HPI Physical Exam Vital Signs: Last Vital Signs Temp 97.2 F 04/20/23 09:32 Pulse 69 04/20/23 09:32 BP 108/70 04/20/23 09:32 Pulse Ox 100 04/20/23 09:32 Oxygen Delivery Method Room Air 04/20/23 09:32 BMI result Body Mass Index 38.0 On exam, the patient is in good spirits She is in no acute respiratory distress Her abdomen is soft with no tenderness and no peritoneal sign. I still do not appreciate any hernia. Patient's lower extremities have symmetric 1+ nonpitting edema which the patient notes is chronic secondary to bilateral clubfoot surgery. No ischemia or ulceration is noted Results Reviewed Results Reviewed: Labs from December 01, 2022 Patient had anemia with a hemoglobin of 8.7 with hypochromic microcytic indices in low iron studies Platelet count is 283 K, white count normal at 8.4 but the eosinophil count was elevated BUN was low at 8/creatinine 0.77 electrolytes within normal parameters labs from 04/13/23 ER UA showed large amount of blood, esterase positive White blood cell count was normal at 7.5, patient's hypochromic/microcytic iron deficiency anemia persists at 9.8; platelet count 291 LFTs within normal parameters Patient's BUN remains low at 8 and electrolytes are otherwise were within normal parameters Abdominal CT dated 04/05/23 images and report reviewed There is no evidence of umbilical hernia or general surgery etiology for the patient's ongoing abdominal complaints. Large a calcified fibroids are noted and there is some thickening/possible postoperative change/scar tissue noted. Assessment & Plan Assessment & Plan (1) Umbilical pain: Code(s): R10.33 - Periumbilical pain (2) Morbid (severe) obesity due to excess calories: Code(s): E66.01 - Morbid (severe) obesity due to excess calories (3) Fibroid: Code(s): D21.9 - Benign neoplasm of connective and other soft tissue, unspecified (4) Anemia: Code(s): D64.9 - Anemia, unspecified Plan The patient became tearful during today's visit and stated that she was hopeful there would be and other etiology to explain her ongoing abdominal complaints. She noted that she was given 2 options regarding her large fibroids including hysterectomy and medication. She notes that she was hopeful she had a hernia or some other surgical pathology that I could repair, but we discussed that there is no obvious issue that I can address. The importance of following up with her business intelligence etl developer given the large fibroids and ongoing abdominal complaint was discussed. While the patient likely has postoperative scar tissue that appears is thickening, consideration for cargo broker related pathology is deferred to her cargo broker in the importance of following up was reviewed. I also explained that while very where, cargo broker malignancy could be an issue and stressed the importance of evaluation by her business intelligence etl developer given the CT findings. My office will send a copy of these notes to her cargo broker at [facility] and the patient is encouraged to ask for an earlier appointment. Patient is discharged from my care and will contact me if a new surgical concern arises. Coding Level of Care Code Est Pt Level 4 (49486) Diagnoses Umbilical pain R10.33 Morbid (severe) obesity due to excess calories E66.01 Fibroid D21.9 Anemia D64.9
[2023-04-20 09:32] VITALS: BP 108/70; PULSE 69; TEMP 36.2; O2SAT 100; BMI 38.0
== END 2023-04-20 10:14 | disposition home or self-care (01) ==
PROVIDERS: PCP Internal Medicine; Visit Provider Surgery
DX: R10.33 Periumbilical pain (principal); E66.01 Morbid (severe) obesity due to excess calories; D21.9 Benign neoplasm of connective and other soft tissue, unspecified; D64.9 Anemia, unspecified
CPT/HCPCS: 99214

== ENCOUNTER → 2023-04-20 09:27 | Outpatient (BNVA) | payer OTHER, SELFPAY | PROVIDERS: PCP Internal Medicine; Visit Provider Surgery | DX: R10.33 Periumbilical pain (principal); D21.9 Benign neoplasm of connective and other soft tissue, unspecified; D64.9 Anemia, unspecified; E66.01 Morbid (severe) obesity due to excess calories; Z68.38 Body mass index [BMI] 38.0-38.9, adult | CPT/HCPCS: 99212 ==

== ENCOUNTER 2023-05-05 08:56 | Outpatient (REF) | payer OTHER, SELFPAY ==
[2023-05-09 12:08] LABS: Anti Nuclear Antibody Screen NEGATIVE (NEGATIVE)
== END 2023-05-05 08:57 | disposition home or self-care (01) ==
LOC: HO.LAB 08:56
PROVIDERS: PCP Internal Medicine; Visit Provider Internal Medicine Gastroenterology
DX: Z11.2 Encounter for screening for other bacterial diseases (principal); K20.90 Esophagitis, unspecified without bleeding; K25.9 Gastric ulcer, unspecified as acute or chronic, without hemorrhage or perforation; T18.128A Food in esophagus causing other injury, initial encounter; R79.82 Elevated C-reactive protein (CRP)
CPT/HCPCS: 36415; 83013; 86003; 86038; 99211

== ENCOUNTER 2023-05-12 09:03 | Outpatient (REF) | payer OTHER, SELFPAY ==
[2023-05-14 09:09] LABS: H Pylori Breath Test Negative (Negative)
== END 2023-05-12 09:04 | disposition home or self-care (01) ==
LOC: HO.LNP 09:03
PROVIDERS: PCP Internal Medicine; Visit Provider Internal Medicine Gastroenterology
DX: K20.90 Esophagitis, unspecified without bleeding (principal); K25.9 Gastric ulcer, unspecified as acute or chronic, without hemorrhage or perforation; T18.128A Food in esophagus causing other injury, initial encounter
CPT/HCPCS: 83013; 99211

== ENCOUNTER 2023-06-06 10:33 | Outpatient (AMB) | payer OTHER, SELFPAY ==
--- NOTE | 2023-06-06 10:41 | A.OFFVIS_ITS ---
Intake Vital Signs 06/06/23 10:42 Height 5 ft 6 in Weight 231 lb 7.766 oz BMI 37.4 BP 108/58 L Blood Pressure Location Rt brachial Position Sitting Pulse 71 Intake Visit Reasons: 4 month follow up Intake Note: Alea presents in the office as a 4 month follow up. CC: She states that she is here today as a follow up no GI concerns. Allergies hydromorphone [From Dilaudid] Allergy (Mild, Verified 06/06/23 10:43) facial/hand numbness latex [Latex] Allergy (Unknown, Verified 06/06/23 10:43) UNKNOWN HPI 4 month follow up HPI Details 33 yr old f here for f/u RECAP: she had EGD for dysphagia 12/2022 RESULTS: Findings: Larynx: congestion and erythema of larynx noted Esophagus: GE junction at 36 cm, diaphragm hiatus at 38 cm, schatzki ring noted, with micro abscesses and patchy erythema, bx taken, and balloon dilation done to 15 mm at UES and 17 mm at lower esophagus. 2 cm sliding hiatal hernia noted Stomach: Patchy gastric erythema with superficial ulcers and erosions at the pre pyloric area . Biopsies were obtained. Grade 3 flap valve on retroflexed examination of the cardia. Duodenum: Patchy erythema in duodenal bulb noted, bx taken Intervention: Biopsies as noted above, ballon dilation Impression/Findings: laryngitis esophagitis gastritis and gastric ulcers duodenitis schatzki ring hiatal hernia PLAN: high dose PPI omeprazole 40 mg BID and repeat EGD in 3 months then titrate down on PPI will consider RAST testing at follow up reflux precautions check nsaid hx Path: A. Duodenum, biopsy: Duodenal mucosa with preserved villi and focal mild changes the raise the possibility of peptic/nonspecific duodenitis. B. Gastric ulcer, biopsy: Superficial fragments of benign gastric mucosa with focal mild chronic active inflammation and marked regenerative changes, consistent with tissue adjacent to ulcer; negative for intestinal metaplasia and dysplasia (see comment). C. Stomach, random, biopsy: Gastric body mucosa with minimal chronic inactive gastritis; negative for intestinal metaplasia and dysplasia (see comment). D. Esophagogastric junction, biopsy: Squamous mucosa with hyperplasia and numerous intraepithelial eosinophils (up to over 70 per high-power field) and columnar mucosa with mild chronic inflammation; negative for intestinal metaplasia and dysplasia (see comment). E. Esophagus, distal, biopsy: Squamous mucosa with hyperplasia and numerous intraepithelial eosinophils (up to over 70 per high-power field); no columnar mucosa present (see comment). F. Esophagus, proximal, biopsy: Squamous mucosa with intraepithelial eosinophils (up to 30 per high-power field); no columnar mucosa present (see comment). Repeat EGD 04/18: esophagitis gastritis and erosions schatzki ring hiatal hernia PLAN: overall appearances are much better than last time high dose PPI omeprazole 40 mg BID for another 3 months then titrate down reflux precautions Path:numerous eosinophils in stomach and esophagus RAST pos for several substances incl egg white, almond, cow milk etc RENY is neg HGB --chronically low with low MCV INTERIM: cont taking omeprazole she has no symptoms denies nausea appetite is good reviewed allergies with her she is also chronically anemic, has fibroids and denies heavy periods, no rectal bleeding or melen EXAM: GENERAL: The patient is well developed and nontoxic. VITAL SIGNS:see workflow HEENT: Nonicteric sclerae, PERRLA, EOMI. Oropharynx clear. Moist mucous membra valerie. Conjunctivae appear well perfused. No thyroid mass. CHEST: Chest wall is nontender. HEART: Regular rate and rhythm without murmurs. LUNGS: Clear to auscultation bilaterally. ABDOMEN: Soft, positive bowel sounds, nontender, no organomegaly.no flank tenderness SKIN: No rash, no excessive bruising, petechiae, or purpura. NEUROLOGIC: Cranial nerves II-XII intact without motor/sensory deficit. A/P; 1/ eosinophilic esophagitis and gastriti s possibly due to food allergies 2/ chronic iron def anemia, possibly due to fibroids, but never had colo evaluation PLAN: 1/ cont with omeprazole for the moment w ith BId dosing 2/ repeat EGD, but avoid allergens for 1 week before hand, if ongoing eos then trial of budesonide--will add colonoscopy with suprep 3/ rept RAST for meats per pt request [facility] Medical History (Updated 04/20/23 @ 10:03 by Dre Armijo MD, FACS, [employer]) Arthritis Asthma Fibroid Anemia Surgical History Hx of ankle fusion History of ovarian cystectomy Hx of section History of esophagogastroduodenoscopy (EGD) Social History Alcohol intake: never Patient Tobacco Use Status: Never used Tobacco Advance Directives Date on File: 12/01/22 service: No Current occupational status: employed Physical Exam Vital Signs: Last Vital Signs Pulse 71 06/06/23 10:42 BP 108/58 L 06/06/23 10:42 BMI result Body Mass Index 37.4 Assessment & Plan Assessment & Plan (1) Anemia: Code(s): D64.9 - Anemia, unspecified Plan: A/P; 1/ eosinophilic esophagitis and gastritis possibly due to food allergies 2/ chronic iron def anemia, possibly due to fibroids, but never had colo evaluation PLAN: 1/ cont with omeprazole for the moment with BId dosing 2/ repeat EGD, but avoid allergens for 1 week before hand, if ongoing eos then trial of budesonide 3/ rept RAST for meats per pt request (2) Esophagitis: Code(s): K20.90 - Esophagitis, unspecified without bleeding Plan: A/P; 1/ eosinophilic esophagitis and gastritis possibly due to food allergies 2/ chronic iron def anemia, possibly due to fibroids, but never had colo evaluation PLAN: 1/ cont with omeprazole for the moment with BId dosing 2/ repeat EGD, but avoid allergens for 1 week before hand, if ongoing eos then trial of budesonide 3/ rept RAST for meats per pt request Medications: New sodium,potassium,mag sulfates 17.5-3.13-1.6 gram (Suprep Bowel Prep Kit) DILUTE; drink 1/2 at 6-8 pm and half at 11 PM- 1AM 354 mL 0RF Coding Level of Care Code Est Pt Level 4 (93518) Diagnoses Anemia D64.9 Esophagitis K20.90
[2023-06-06 10:42] VITALS: BP 108/58; PULSE 71; BMI 37.4
== END 2023-06-06 14:20 | disposition home or self-care (01) ==
PROVIDERS: PCP Internal Medicine; Visit Provider Internal Medicine Gastroenterology
DX: D64.9 Anemia, unspecified (principal); K20.90 Esophagitis, unspecified without bleeding
CPT/HCPCS: 99214

== ENCOUNTER → 2023-06-06 10:33 | Outpatient (BNVA) | payer OTHER, SELFPAY | PROVIDERS: PCP Internal Medicine; Visit Provider Internal Medicine Gastroenterology | DX: D64.9 Anemia, unspecified (principal); K20.90 Esophagitis, unspecified without bleeding | CPT/HCPCS: 99212 ==

== ENCOUNTER 2023-06-24 11:34 | Emergency (ER) | payer OTHER, SELFPAY ==
--- NOTE | ~2023-06-24 | CT_ITS ---
EXAMINATION: CT ANGIOGRAM OF THE CHEST WITH AND WITHOUT CONTRAST (CT PULMONARY ANGIOGRAM FOR PE) CLINICAL INFORMATION: Reason for Exam syncope, elevated ddimer COMPARISON: None available. TECHNIQUE: Prior to contrast administration, noncontrast localization images were obtained. Subsequently, multidetector volumetric imaging was performed from the thoracic inlet to below the diaphragms following the administration of 80 mL Omnipaque 350 intravenous contrast. No contrast reaction reported Sagittal, coronal, and MIP oblique sagittal reformatted images were obtained on the CT workstation, uploaded to PACS, and reviewed. This CT examination was performed using dose optimization techniques as appropriate, variously including the following: *Automated exposure control *Adjustment of mA and/or kV according to patient size (this includes techniques or standardized protocols for targeted exams where dose is matched to indication/reason for exam; i.e. extremities or head) *Use of iterative reconstruction technique Total exam dose-length product 324 mGy-cm FINDINGS: BINGO MANAGER: Unremarkable QUALITY OF STUDY/CONTRAST BOLUS: Satisfactory. PULMONARY ARTERIES: Ectatic pulmonary arteries. No filling defects to suggest pulmonary thromboembolism. HEART AND GREAT VESSELS: Heart is not enlarged. No pericardial effusion. Nonaneurysmal aorta. No ventricular bowing. No contrast reflux into the inferior vena cava. LUNGS: Trachea and bronchi are patent. No consolidations, groundglass opacities or nodules. PLEURA: No pleural effusion or pneumothorax. MEDIASTINUM: Unremarkable thyroid. Anterior mediastinal soft tissue density likely residual thymus. No pathologic lymphadenopathy. CORONARY ARTERY CALCIFICATION: None visualized on this study. CHEST WALL/AXILLA: No axillary or internal mammary lymphadenopathy. OSSEOUS STRUCTURES: No acute or suspicious osseous abnormality. UPPER ABDOMEN: Enlarged fatty liver. CT/CT angio chest PE protocol IMPRESSION: No CT evidence of pulmonary thromboembolism or other internal thoracic pathology. Enlarged fatty liver. VTE: negative
[2023-06-24 11:52] VITALS: BP 120/80; PULSE 78; O2SAT 98; BMI 34.7
[2023-06-24 11:55] VITALS: BP 124/75; PULSE 75; RESP 12; TEMP 36.9; O2SAT 98
--- NOTE | 2023-06-24 12:12 | ECG_ITS ---
Test Reason : NEAR SYNCOPE Blood Pressure : / mmHG Vent. Rate : 069 BPM Atrial Rate : 069 BPM P-R Int : 144 ms QRS Dur : 082 ms QT Int : 418 ms P-R-T Axes : 063 060 027 degrees QTc Int : 447 ms Normal sinus rhythm Nonspecific ST and T wave abnormality Borderline ECG When compared with ECG of 05-DEC-2018 14:27, T wave inversion now evident in Anterior leads Referred By: Luz Marina Li Electronically Signed By:LUPIS ALVAREZ
--- NOTE | 2023-06-24 12:18 | PC.NURSE ---
a&ox4, vss and up to date. pt biba d/t feeling weak/dizzy/decreased PO intake x 2 days. pt had witnessed syncopal episode at home yesterday. +headstrike, - thinners. pt had another witnessed syncopal episode today - pt's caught/lowered pt to the ground. pt verbalizes slight 6/10 headache/lightheadedness. denies change in vision. neuros intact. able to follow commands w/o difficulty. strength equal bilaterally. pt passed nursing swallow eval w/o difficulty. no difficulties noted. no sob/wob noted. respirations even and unlabored. bedside. tech performing ekg at this time. call gale placed within reach.
--- NOTE | 2023-06-24 12:31 | ED_ITS ---
HPI - Weakness General Chief complaint: Weakness Stated complaint: WEAKNESS,ANEMIC PER EMS Time Seen by Provider: 06/24/23 12:10 Source: patient and old records reviewed Mode of arrival: EMS Limitations: no limitations History of Present Illness HPI Narrative: 33 yo female with PMH of hiatal hernia, Fe deficiency anemia followed by [facility] on PPI for meat impaction and Schatzki's ring, known uterine fibroids seen here on multiple CT scans was being seen by Dr. Armijo for umbilical pain for 1-2 years in duration had prior umbilical surgery as a child but uknown reason why comes today with c/o feeling weak, tired being pale then getting up last night and passing out and also trying to get up today and catching her she never hit her head. She is worried she is anemic. She started lupron for fibroids. Has not bled since start of the month. No CP/SOB no black or bloody stools. Is not taking her Fe. MD Complaint: generalized weakness Onset (ago): day(s) (2) Duration: constant Location: generalized Severity: moderate Relieving factors: rest Exacerbating factors: exertion Context: history of similar Associated symptoms: headaches and loss of appetite Related Data Home Medications Medication Instructions Recorded Confirmed albuterol sulfate 2.5 mg/3 mL 2.5 mg inhalation Q4H PRN wheezing 12/01/22 04/20/23 (0.083 %) solution for nebulization albuterol sulfate 90 mcg/actuation 2 puff inhalation Q4H PRN wheezing 12/01/22 04/20/23 aerosol inhaler (Ventolin HFA) rizatriptan 5 mg tablet See Rx Instructions PO .COMPLEX 02/14/23 04/20/23 budesonide-formoterol HFA 160 2 puff inhalation BID 06/06/23 mcg-4.5 mcg/actuation aerosol inhaler leuprolide 3.75 mg intramuscular 3.75 mg IM Q4W 06/06/23 syringe kit (Lupron Depot) Previous Rx's Medication Instructions Recorded ferrous sulfate 325 mg (65 mg 325 mg PO DAILY #30 tabs 12/01/22 iron) tablet omeprazole 40 mg capsule,delayed 40 mg PO BID #120 caps 12/29/22 release ondansetron 4 mg disintegrating 4 mg PO Q8H PRN nausea and 04/13/23 tablet vomiting #20 tabs oxycodone 5 mg tablet 5 mg PO TID PRN pain #12 tabs 04/13/23 tramadol 50 mg tablet 50 mg PO TID PRN pain #10 tabs 04/13/23 sodium,potassium,mag sulfates 17.5 See Rx Instructions PO .COMPLEX 06/06/23 gram-3.13 gram-1.6 gram oral soln #354 mL (Suprep Bowel Prep Kit) Allergies Allergy/AdvReac Type Severity Reaction Status Date / Time hydromorphone [From Dilaudid] Allergy Mild facial/hand Verified 06/24/23 11:52 numbness latex [Latex] Allergy Unknown UNKNOWN Verified 06/24/23 11:52 Review of Systems 2 Review of Systems: Constitutional : No Fever, No Chills, posFatigue ENT/Mouth : No sore throat, No Rhinorrhea Eyes: No Eye Pain, No Swelling, No Redness Cardiovascular : No Chest Pain, No SOB, No Dyspnea on Exertion Respiratory : No Cough, No Sputum Gastrointestinal : No Nausea, No Vomiting, No Diarrhea, No abdominal Pain Genitourinary : No Dysuria, No Urinary Frequency, No Hematuria, Musculoskeletal : No joint pain, No Myalgias, No Joint Swelling Skin : No Skin Lesions, No rash Neuro : pos Weakness, No Numbness, No Dizziness, positive Headache, pos near syncope Psych : No Anxiety/Panic, No Depression Heme/Lymph: No Bruising, No Bleeding,No Lymphadenopathy Endocrine : No Polyuria, No Polydipsia All other systems reviewed and are negative PMFSH Past Medical History Source: old records reviewed Medical History Arthritis Asthma Fibroid Anemia Surgical History Hx of ankle fusion History of ovarian cystectomy Hx of section History of esophagogastroduodenoscopy (EGD) Social History Social History Alcohol intake: never Patient Tobacco Use Status: Never used Tobacco Smoked in Last 30 Days: No Use of substances other than those prescribed or required for medical reasons: No Advance Directives: Yes Advance Directives on File: Yes Advance Directives Date on File: 12/01/22 Patient : No service: No Current occupational status: employed Physical Exam 2 Vital Signs: Vital Signs: Last Vital Signs Temp 98.3 F 06/24/23 15:01 Pulse 63 06/24/23 15:01 Resp 14 06/24/23 15:01 BP 108/65 06/24/23 15:01 Pulse Ox 99 06/24/23 15:01 O2 Del Method Room Air 06/24/23 15:01 BMI result Body Mass Index 34.7 Appearance: Alert. Oriented X3. No acute distress. Eyes: Pupils equal, round and reactive to light. normal conjunctiva ENT: Pharynx normal. Neck: Normal inspection. Neck supple. CVS: Normal heart rate and rhythm. Pulses normal. Respiratory: No respiratory distress. Breath sounds normal. Abdomen: Soft and nontender. Skin: Skin warm and dry. pale skin color. Normal skin turgor. Extremities: No lower extremity edema. No calf ttp Neuro: Oriented X 3. No motor deficit. No sensory deficit. Course Course Course Narrative: not anemic, no dehydration, ddimer elevated at this time will obtain CTA to rule out PE has nonspecific T wave inversions flat trop Reevaluation(s) Reevaluation #1: Ultrasound-guided IV An 18 gauge, 2-1/2 inch length IV was placed under ultrasound guidance to the left brachial vein. Flushed and secured. RN notified. Time: 15:48 Reevaluation #2: signed out to Dr. Stewart pending CTA Time: 17:31 Reevaluation #3: Patient was signed out to me by the previous emergency physician pending results of a CT pulmonary angiogram. The CT pulmonary angiogram has been read as negative. Vital signs are reassuring. The patient looks tired but not acutely ill. It is possible her symptoms today could be related to her use of Lupron. I do not think she requires any additional testing or evaluation in the emergency room today and she will be discharged follow-up with her regular providers or return if worse. Medications Administered Discontinued Medications Generic Name Dose Route Start Last Admin Trade Name Freq PRN Reason Stop Dose Admin Sodium Chloride 1,000 mls @ 999 mls/hr 06/24/23 12:15 06/24/23 13:34 Ns IV 06/24/23 13:15 Infused .Q1H1M JANE Infusion Iohexol 65 ml 06/24/23 16:08 06/24/23 16:09 Iohexol 350 Mg/Ml 100 Ml Infus..Btl IV 06/24/23 16:09 65 ml ONCE ONE Administration Medical Decision Making Medical Decision Making [facility] Narrative: 33 yo female with chronic abdominal pain just cleared by Dr. Armijo who recommend she see her EMPLOYMENT RECRUITER at [facility] given fibroids, chronic anemia, hiatal hernia, food bolus impaction here with c/o syncope x 2 feels weak and tired no trauma from falls at this time at this time will need labs, EKG, IVF - check for anemia, dehydration, VTE, has no CP to suggest ACS and no risk factors, test ordered Differential Diagnosis Differential Diagnoses: The differential diagnosis associated with the presentation includes anemia, dehydration, VTE, has no CP to suggest ACS and no risk factors, Admission/Observation Consideration of admission/observation: Escalation of care including admission/observation considered Lab Data [facility] Lab Attestation statement: I reviewed the patient's lab results. 06/24/23 12:32 06/24/23 12:32 Labs: Lab Results 06/24/23 06/24/23 Range/Units 12:32 12:59 WBC 4.4 L (4.8-10.8) X10*3/uL RBC 5.98 H (4.20-5.50) X10*6/uL Hgb 11.5 L (12.0-16.0) g/dl Hct 40.1 (37.0-47.0) % MCV 67.1 L (80.0-98.0) fL MCH 19.2 L (27.0-33.0) pg MCHC 28.7 L (31.0-35.0) g/dl RDW 19.3 H (11.0-16.0) % Plt Count 340 (160-400) X10*3/uL MPV 10.3 (9.4-12.3) fL Immature Gran % (Auto) 0.5 H (0.0-0.4) % Neut % (Auto) 50.7 (45-73) % Lymph % (Auto) 33.9 (20-40) % [place] % (Auto) 10.2 (2-11) % Eos % (Auto) 3.8 (0-4) % Baso % (Auto) 0.9 (0-2) % Lymph # (Auto) 1.5 (1.2-4.9) X10*3/uL [place] # (Auto) 0.5 (0.1-1.2) X10*3/uL Eos # (Auto) 0.2 (0.0-0.4) X10*3/uL Baso # (Auto) 0.0 (0.0-0.2) X10*3/uL Abs Immat Gran (auto) 0.02 (0.00-0.03) X10*3/uL Absolute Neuts (auto) 2.2 (2.0-8.3) x10*3/uL Absolute Nucleated RBC 0.000 (0.0-0.012) X10*3/uL Nucleated RBC % (auto) 0.0 (0.0-0.2) /100WBC PT 12.4 (11.1-13.3) SEC INR 1.0 (0.9-1.1) D-Dimer High Sensitivty 491 NG/ML Sodium 139 (135-145) mmol/L Potassium 3.8 (3.3-5.1) mmol/L Chloride 109 H (96-108) mmol/L Carbon Dioxide 19 L (22-29) mmol/L Anion Gap 15 (12-20) BUN 7 L (9-16) mg/dL Creatinine 0.79 (0.5-1.4) mg/dL Estim Creat Clear Calc 123.4 Estimated GFR > 60 Random Glucose 84 (60-115) mg/dL Calcium 8.9 (8.4-10.2) mg/dL Magnesium 2.2 (1.6-2.6) mg/dL Total Bilirubin 0.3 (0.0-1.0) mg/dL Direct Bilirubin 0.1 (0.0-0.5) mg/dL AST 36 H (5-31) U/L ALT 20 (0-31) U/L Alkaline Phosphatase 98 (39-117) U/L Troponin I High Sens < 2.7 (<3.5-17.0) ng/L Total Protein 8.4 H (6.5-8.0) g/dL Albumin 3.9 (3.5-5.0) g/dL Beta HCG, Quant < 2 mIU/mL Influenza Type A (PCR) NEGATIVE (Negative) Influenza Type B (PCR) NEGATIVE (Negative) RSV RNA Qual (PCR) NEGATIVE (Negative) SARS-CoV-2 RNA (RT-PCR) NEGATIVE (Negative) Independent Interpretation I performed an independent interpretation of an: EKG and CT Scan Interpretation: Rate: 69 Rhythm: NSR [place]: normal Normal P waves. Normal EPIFANIO. Normal QRS complex. ST T wave : inverted t wave V1-V3, no JB qTC: normal prior studies: no acute ischemia The study has been interpreted contemporaneously by me. . Radiology Impression Discussion of test interpretation with radiology: I have reviewed the radiologist's reading. Independent Historian Clinical information obtained from an independent historian. History obtained from or confirmed by: EMS External Record Review External record reviewed: Inpatient record and Office record Discharge Plan Discharge Clinical Impression: Syncope Qualifiers: Syncope type: unspecified Qualified Code(s): R55 - Syncope and collapse Patient Disposition: Home, Self-Care Instructions: Syncope (ED) Additional Instructions: Your testing in the emergency room today does not show any acutely dangerous process. Please rest and take it easy over the weekend and follow up with your regular doctors next week. Return to the emergency room significantly worse. Prescriptions: No Action omeprazole 40 mg capsule,delayed release(DR/EC) 40 mg PO BID Qty: 120 1RF albuterol sulfate 2.5 mg /3 mL (0.083 %) solution for nebulization 2.5 mg inhalation Q4H PRN (Reason: wheezing) albuterol sulfate [Ventolin HFA] 90 mcg/actuation HFA aerosol inhaler 2 puff inhalation Q4H PRN (Reason: wheezing) ferrous sulfate 325 mg (65 mg iron) tablet 325 mg PO DAILY Qty: 30 0RF ondansetron 4 mg tablet,disintegrating 4 mg PO Q8H PRN (Reason: nausea and vomiting) Qty: 20 0RF oxycodone 5 mg tablet 5 mg PO TID PRN (Reason: pain) Qty: 12 0RF Rx Instructions: Partial Fill upon patient request. rizatriptan 5 mg tablet See Rx Instructions PO .COMPLEX Rx Instructions: take 1 tablet at onset of headache; if no relief, may repeat 1 tablet after at least 2 hrs PO Lupron Depot 3.75 mg syringe kit 3.75 mg IM Q4W budesonide-formoterol 160-4.5 mcg/actuation HFA aerosol inhaler 2 puff inhalation BID sodium,potassium,mag sulfates [Suprep Bowel Prep Kit] 17.5-3.13-1.6 gram recon soln See Rx Instructions PO .COMPLEX Qty: 354 0RF Rx Instructions: DILUTE; drink 1/2 at 6-8 pm and half at 11 PM- 1AM tramadol 50 mg tablet 50 mg PO TID PRN (Reason: pain) Qty: 10 0RF Referrals: Dallas Hernandez III, MD [Primary Care Provider] -
[2023-06-24] MEDS: 0.9 % Sodium Chloride 1,000 ML 999 ML IV (12:33)
[2023-06-24 12:37] LABS: MANUAL DIFF FLAG NO
[2023-06-24 12:45] LABS: Basophils Percent Auto 0.9 % (0-2); Eosinophils Absolute Auto 0.2 X10*3/uL (0.0-0.4); Eosinophils Percent Auto 3.8 % (0-4); Hematocrit 40.1 % (37.0-47.0); Hemoglobin 11.5 g/dl (12.0-16.0); Imm Gran Abs Auto 0.02 X10*3/uL (0.00-0.03); Imm Gran Pct Auto 0.5 % (0.0-0.4); Lymphocytes Absolute Auto 1.5 X10*3/uL (1.2-4.9); Lymphocytes Percent Auto 33.9 % (20-40); Mean Corpuscular HGB Conc 28.7 g/dl (31.0-35.0); Mean Corpuscular Hemoglobin 19.2 pg (27.0-33.0); Mean Corpuscular Volume 67.1 fL (80.0-98.0); Mean Platelet Volume 10.3 fL (9.4-12.3); Monocytes Absolute Auto 0.5 X10*3/uL (0.1-1.2); Monocytes Percent Auto 10.2 % (2-11); Neutrophils Absolute Auto 2.2 x10*3/uL (2.0-8.3); Neutrophils Percent Auto 50.7 % (45-73); Platelet Count 340 X10*3/uL (160-400); Red Blood Count 5.98 X10*6/uL (4.20-5.50); Red Cell Distribution Width 19.3 % (11.0-16.0); White Blood Count 4.4 X10*3/uL (4.8-10.8)
[2023-06-24 12:46] LABS: Prothrombin Time 12.4 SEC (11.1-13.3)
[2023-06-24 13:04] LABS: D Dimer High Sensitivity 491 NG/ML
[2023-06-24 13:05] LABS: Alanine Aminotransferase 20 U/L (0-31); Albumin Level 3.9 g/dL (3.5-5.0); Alkaline Phosphatase 98 U/L (39-117); Anion Gap 15 (12-20); Aspartate Amino Transferase 36 U/L (5-31); Bilirubin Direct 0.1 mg/dL (0.0-0.5); Bilirubin Total 0.3 mg/dL (0.0-1.0); Blood Urea Nitrogen 7 mg/dL (9-16); Calcium 8.9 mg/dL (8.4-10.2); Carbon Dioxide 19 mmol/L (22-29); Chloride 109 mmol/L (96-108); Creatinine Clr Calc Pharmacy 123.4; Estimated Glomerular Filt Rate > 60; Glucose Random 84 mg/dL (60-115); HCG Quantitative < 2 mIU/mL; Magnesium 2.2 mg/dL (1.6-2.6); Potassium 3.8 mmol/L (3.3-5.1); Sodium 139 mmol/L (135-145); Total Protein 8.4 g/dL (6.5-8.0); Troponin-I High Sensitivity < 2.7 ng/L (<3.5-17.0)
[2023-06-24 13:47] LABS: Influenza A PCR NEGATIVE (Negative); Influenza B PCR NEGATIVE (Negative); Resp Syncy Virus RNA Qual PCR NEGATIVE (Negative); SARS COV2 PCR INHOUSE NEGATIVE (Negative)
--- NOTE | 2023-06-24 14:33 | PC.NURSE ---
22gIV placed in the hand hand - labs drawn and sent to lab.
[2023-06-24 15:01] VITALS: BP 108/65; PULSE 63; RESP 14; TEMP 36.8; O2SAT 99
[2023-06-24] MEDS: iohexoL 350 MG/ML 100 ML INFUS..BTL 65 ML IV (16:09)
== END 2023-06-24 18:58 | disposition home or self-care (01) ==
PROVIDERS: Emergency Medicine; Emergency Provider Emergency Medicine; PCP Internal Medicine
DX: R55 Syncope and collapse (principal); R10.9 Unspecified abdominal pain; D50.9 Iron deficiency anemia, unspecified; J45.909 Unspecified asthma, uncomplicated; Z20.822 Contact with and (suspected) exposure to COVID-19; Z20.828 Contact with and (suspected) exposure to other viral communicable diseases
CPT/HCPCS: 0241U; 36415; 71275; 80048; 80076; 83735; 84484; 84702; 85025; 85379; 85610; 93005; 96360; 99284; 99285; Q9967

== ENCOUNTER → 2023-06-24 12:12 | Outpatient (BNV) | payer OTHER, SELFPAY | PROVIDERS: Emergency Provider Emergency Medicine; PCP Internal Medicine; Visit Provider Internal Medicine | DX: R55 Syncope and collapse (principal) | CPT/HCPCS: 93010 ==

== ENCOUNTER 2023-07-05 12:38 | Outpatient (REF) | payer OTHER, SELFPAY | END 2023-07-05 12:39 | disposition home or self-care (01) | LOC: HO.MDS 12:38 | PROVIDERS: Visit Provider Internal Medicine Gastroenterology | DX: D64.9 Anemia, unspecified (principal) | CPT/HCPCS: 96374; J1756 ==

== ENCOUNTER 2023-07-15 13:15 | Outpatient (REF) | payer OTHER, SELFPAY | END 2023-07-15 13:16 | disposition home or self-care (01) | LOC: HO.MDS 13:15 | PROVIDERS: Visit Provider Internal Medicine Gastroenterology | DX: D64.9 Anemia, unspecified (principal) | CPT/HCPCS: 96365; J1756 ==

== ENCOUNTER 2023-07-22 12:58 | Outpatient (REF) | payer OTHER, SELFPAY | END 2023-07-22 12:59 | disposition home or self-care (01) | LOC: HO.MDS 12:58 | PROVIDERS: Visit Provider Internal Medicine Gastroenterology | DX: D64.9 Anemia, unspecified (principal) | CPT/HCPCS: 96365; J1756 ==

== ENCOUNTER 2023-07-29 12:50 | Outpatient (REF) | payer OTHER, SELFPAY | END 2023-07-29 12:51 | disposition home or self-care (01) | LOC: HO.MDS 12:50 | PROVIDERS: Visit Provider Internal Medicine Gastroenterology | DX: D64.9 Anemia, unspecified (principal) | CPT/HCPCS: 96365; J1756 ==

== ENCOUNTER 2023-08-05 13:10 | Outpatient (REF) | payer OTHER, SELFPAY | END 2023-08-05 13:11 | disposition home or self-care (01) | LOC: HO.MDS 13:10 | PROVIDERS: Visit Provider Internal Medicine Gastroenterology | DX: D64.9 Anemia, unspecified (principal) | CPT/HCPCS: 96374; J1756 ==

== ENCOUNTER 2023-08-12 13:18 | Outpatient (REF) | payer OTHER, SELFPAY | END 2023-08-12 13:19 | disposition home or self-care (01) | LOC: HO.MDS 13:18 | PROVIDERS: Visit Provider Internal Medicine Gastroenterology | DX: D64.9 Anemia, unspecified (principal) | CPT/HCPCS: 96365; J1756 ==

== ENCOUNTER 2023-09-20 08:02 | Day surgery (SDC) | payer OTHER, SELFPAY ==
--- NOTE | 2023-09-19 12:33 | P.CONAN_ITS ---
Documented by User: Betzaida Dickerson NP 09/19/23 12:34 HPI - Anesthesia Eval Consult details Narrative: 33yo F for Upper Endoscopy and Colonoscopy PMF Active Problems Active Problems: All Active Problems (Updated 09/07/23 @ 22:21 by Taniya Jamison MD) Food allergy (Acute) Fibroid (Acute) Morbid (severe) obesity due to excess calories (Acute) Anemia (Acute) Umbilical pain (Acute) Esophagitis (Acute) Gastric ulcer (Acute) Food impaction of esophagus (Acute) Past Medical History Medical History Arthritis Asthma Fibroid Anemia Family History Family history of problems with anesthesia: No Surgical History Surgical History Hx of ankle fusion History of ovarian cystectomy Hx of section History of esophagogastroduodenoscopy (EGD) History of Problems with Anesthesia: No Social History Social History Alcohol intake: never Patient Tobacco Use Status: Never used Tobacco Use of substances other than those prescribed or required for medical reasons: No Are you DNR?: No Advance Directives: No Advance Directives Information Provided: Yes Advance Directives Date on File: 12/01/22 service: No Current occupational status: employed Meds Allergies Allergy/AdvReac Type Severity Reaction Status Date / Time hydromorphone [From Dilaudid] Allergy Mild facial/hand Verified 06/24/23 11:52 numbness latex [Latex] Allergy Unknown UNKNOWN Verified 06/24/23 11:52 Home Medications Medication Instructions Recorded Confirmed Last Taken Type albuterol sulfate 2.5 mg/3 mL 2.5 mg inhalation Q4H PRN wheezing 12/01/22 09/20/23 Unknown History (0.083 %) solution for nebulization albuterol sulfate 90 mcg/actuation 2 puff inhalation Q4H PRN wheezing 12/01/22 09/20/23 04/07/23 History aerosol inhaler (Ventolin HFA) rizatriptan 5 mg tablet See Rx Instructions PO .COMPLEX 02/14/23 09/20/23 Unknown History budesonide-formoterol HFA 160 2 puff inhalation BID 06/06/23 09/20/23 Unknown Hi story mcg-4.5 mcg/actuation aerosol inhaler leuprolide 3.75 mg intramuscular 3.75 mg IM Q4W 06/06/23 09/20/23 Unknown History syringe kit (Lupron Depot) Assessment and Plan Assessment Anesthesia Assessment: Chart Reviewed Final Anesthetic Review Family History of Problems with Anesthesia: No History of Problems with Anesthesia: No Documented by User: Agustin Oconnor MD 09/20/23 09:23 [facility] Past Medical History Medical History Arthritis Asthma Fibroid Anemia Patient : No Surgical History Surgical History Hx of ankle fusion History of ovarian cystectomy Hx of section History of esophagogastroduodenoscopy (EGD) Social History Social History Alcohol intake: never Patient Tobacco Use Status: Never used Tobacco Use of substances other than those prescribed or required for medical reasons: No Are you DNR?: No Advance Directives: No Advance Directives Information Provided: Yes Advance Directives Date on File: 12/01/22 service: No Current occupational status: employed Meds Allergies Allergy/AdvReac Type Severity Reaction Status Date / Time hydromorphone [From Dilaudid] Allergy Mild facial/hand Verified 06/24/23 11:52 numbness latex [Latex] Allergy Unknown UNKNOWN Verified 06/24/23 11:52 Home Medications Medication Instructions Recorded Confirmed Last Taken Type albuterol sulfate 2.5 mg/3 mL 2.5 mg inhalation Q4H PRN wheezing 12/01/22 09/20/23 Unknown History (0.083 %) solution for nebulization albuterol sulfate 90 mcg/actuation 2 puff inhalation Q4H PRN wheezing 12/01/22 09/20/23 04/07/23 History aerosol inhaler (Ventolin HFA) rizatriptan 5 mg tablet See Rx Instructions PO .COMPLEX 02/14/23 09/20/23 Unknown History budesonide-formoterol HFA 160 2 puff inhalation BID 06/06/23 09/20/23 Unknown History mcg-4.5 mcg/actuation aerosol inhaler leuprolide 3.75 mg intramuscular 3.75 mg IM Q4W 06/06/23 09/20/23 Unknown History syringe kit (Lupron Depot) Exam Airway Mallampati Class: II TM Dist: <=3cm Neck ROM: Full Loose/Missing/Broken Teeth: No Heart: ok Lungs: ok Assessment and Plan Assessment Anesthesia Assessment: Anesthesia Plan Discussed Final Anesthetic Review NPO: Yes ASA Class: II Final Preanesthetic Review: No Changes in Pt Med Stat, Meds/Allgs Chart Reviewed, Consent Obtained/Reviewed and Anes Risks/Benef Reviewed Patient Risk: Low Procedure Risk: Intermediate Anesthetic Plan Anesthetic Plan: Agree w/ Assess. and Plan and TIVA Disposition: Standard PACU
[2023-09-20 08:25] VITALS: BMI 37.2
--- NOTE | 2023-09-20 08:32 | MHC.SHP ---
Pre-Procedural Eval Section A - 24 Hr Update-Section A only Date of Service: 09/20/23 Section B - Complete if H&P > 30 days Chief Complaint: Gastritis, unspecified, without bleeding Details of Present Illness: anemia and eosinophilis, food allergies Relevant Family History (Specify if Yes): No Relevant Social History: None Present Medications: see Short Stay Collaborative assessment Medical History: Significant History (Arthritis Asthma Fibroid Anemia) History of Previous Operations: Relevant previous surgery/procedure and date(s) ( Hx of ankle fusion History of ovarian cystectomy Hx of section History of esophagogastroduodenoscopy (EGD)) Allergies: Allergies Allergy/AdvReac Type Severity Reaction Status Date / Time hydromorphone [From Dilaudid] Allergy Mild facial/hand Verified 06/24/23 11:52 numbness latex [Latex] Allergy Unknown UNKNOWN Verified 06/24/23 11:52 Review of Systems Sugical H&P ROS: Negative: Constitution, Cardiovascular, Respiratory, Neurological, Psychiatric, Hem-Onc, Allergic/Immunologic, Gastrointestinal, Genitourinary, Musculoskeletal, Integumentary, Endocrine and Eyes/Ears/Nose/Throat Exam Surgical H&P Exam: Normal: HEENT, Normal: Heart, Normal: Lungs, Normal: Extremities, Normal: Abdomen, Normal: Skin and Normal: Neurological Plan Diagnosis/Plan: Unchanged I have reviewed the history and physical and performed a pertinent physical examination on my patient. No changes have occurred unless specified. Time Spent With Patient Time: Total time managing care of this patient today ____ minutes.
--- NOTE | 2023-09-20 08:33 | W.PM.OPN ---
Operative Note Operative Note Date of Service: 09/20/23 Narrative: Operative Information Procedure Description: EGD, Colonoscopy Indication: anemia, hx of eosinophils on prior bx Anesthesia: MAC FLEXIBLE TRANSORAL UPPER GASTROINTESTINAL ENDOSCOPY AND COLONOSCOPY PROCEDURE NOTE UPPER ENDOSCOPY Consent: Indications for the procedure and potential complications of bleeding, perforation, reaction to medications and missed diagnosis were discussed with the patient and informed consent was obtained. Instrument: Olympus GIF H 190 J mid size upper endoscope Monitoring: Vital signs and clinical assessment, continuous EKG monitoring, Pulse oximetry, Carbon Dioxide monitoring and blood pressure monitoring were done throughout the procedure. Procedure: The patient was placed in the left lateral decubitis position and pre-procedure medications were administered and a bite block was placed. The endoscope was inserted into the mouth and advanced under direct vision to the third part of duodenum. A careful inspection was made as the upper endoscope was withdrawn including a retroflexed examination of the proximal stomach; Findings and interventions are described below. Findings: Larynx:normal Esophagus: GE junction at 37 cm, diaphragm hiatus at 37 cm, normal mucosa--slightly lax LEs, bx taken from distal and proximal esophagus Stomach: Normal mucosa. Biopsies were obtained. Grade 2 flap valve on retroflexed examination of the cardia. Duodenum: Normal bulb and descending duodenum, bx taken Intervention: Biopsies as noted above, COLONOSCOPY Instrument: Olympus variable stiffness pediatric scope 190L Colonoscopy Monitoring: Vital signs and clinical assessment, continuous EKG monitoring, Pulse oximetry, Carbon Dioxide monitoring and blood pressure monitoring were done throughout the procedure. Colon withdrawal time was 10 minutes. Procedure: The patient was placed in the left lateral decubitis position and pre-procedure medications were administered. After a digital rectal examination of the ano-rectum, the video colonoscope was inserted into the rectum and advanced through the colon to the cecum/TI. The colonoscope was slowly withdrawn in a retrograde panoramic fashion and the colon mucosa was carefully examined including a retroflexed view of the rectum. Findings and interventions are described below. Procedure Difficulty:moderate Findings: Terminal Ileum-normal, bx taken Random colon bx taken Cecum:normal Right sided retroflexion--normal Ascending Colon: normal Transverse Colon -normal Descending Colon:normal Sigmoid Colon: normal Rectum: Retroflexion with small internal hemorrhoids, grade I, x 3 sessile polyps 3-4 mm remvoed with cold forceps Anorectum - normal Colon preparation: [place] Bowel Preparation Scale Right colon; 2 Transverse colon: 3 Left colon; 3 (0 = Unprepared colon segment with mucosa not seen due to solid stool that cannot be cleared. 1 = Portion of mucosa of the colon segment seen, but other areas of the colon segment not well seen due to staining, residual stool and/or opaque liquid. 2 = Minor amount of residual staining, small fragments of stool and/or opaque liquid, but mucosa of colon segment seen well. 3 = Entire mucosa of colon segment seen well with no residual staining, small fragments of stool or opaque liquid) Impression and Post Procedure Diagnosis: Endoscopy Findings: normal Colonoscopy Findings: internal hemorrhoids polyps Plan: Await Pathology results Repeat Colonoscopy in 5-7 years if adenomatous polyps, otherwise if hyperplastic then age 45 or earlier if clinically indicated High fiber diet leaflet avoid straining at stool, epsom salts and sitz bath, anusol supps or cream Above findings were reviewed with the patient and relevant handouts were provided if indicated.
[2023-09-20 08:45] VITALS: BP 106/59; PULSE 65; RESP 16; TEMP 36.6; O2SAT 98
[2023-09-20 08:47] LABS: UPreg QC Valid YES; Urine Pregnancy NEGATIVE (NEGATIVE)
[2023-09-20] MEDS: Lactated Ringers 1,000 ML 100 ML IVCONT (08:56)
[2023-09-20 09:40] VITALS: BP 97/54; PULSE 67; RESP 18; TEMP 36.2; O2SAT 98
[2023-09-20 09:57] VITALS: BP 117/73; PULSE 59; RESP 16; TEMP 36.2; O2SAT 99
== END 2023-09-20 10:30 | disposition home or self-care (01) ==
PROVIDERS: Nurse Practitioner; PCP Internal Medicine; Visit Provider Internal Medicine Gastroenterology
PROC: (CPT 45380; principal; 2023-09-20 09:10)
DX: D64.9 Anemia, unspecified (principal); D72.10 Eosinophilia, unspecified; K62.1 Rectal polyp; K64.0 First degree hemorrhoids; K29.70 Gastritis, unspecified, without bleeding; K44.9 Diaphragmatic hernia without obstruction or gangrene; D21.9 Benign neoplasm of connective and other soft tissue, unspecified; J45.909 Unspecified asthma, uncomplicated; M19.90 Unspecified osteoarthritis, unspecified site; Z79.899 Other long term (current) drug therapy; Z88.8 Allergy status to other drugs, medicaments and biological substances; Z91.040 Latex allergy status
CPT/HCPCS: 45380; 43239; 81025; 88305; 88313; 88342; J2704

== ENCOUNTER → 2023-09-20 08:02 | Outpatient (BNV) | payer OTHER, SELFPAY | PROVIDERS: PCP Internal Medicine; Visit Provider Internal Medicine Gastroenterology | DX: K29.70 Gastritis, unspecified, without bleeding (principal); K63.5 Polyp of colon; K64.8 Other hemorrhoids; D64.9 Anemia, unspecified | CPT/HCPCS: 43239; 45380 ==

== ENCOUNTER 2023-10-24 11:34 | Outpatient (AMB) | payer OTHER, SELFPAY ==
--- NOTE | 2023-10-24 11:34 | A.OFFVIS_ITS ---
Intake Visit Reasons: Follow up Colonoscopy Intake Note: Alea presents as a telehealth appt. CC: Discuss results to recent colonoscopy. NO concern. Staff Nuclear Medicine Technologist Required: No Allergies hydromorphone [From Dilaudid] Allergy (Mild, Verified 10/24/23 11:34) facial/hand numbness latex [Latex] Allergy (Unknown, Verified 10/24/23 11:34) UNKNOWN HPI HPI Follow up Colonoscopy: Details: 33 yr old f called for f/u RECAP: she had EGD for dysphagia 12/2022 noted to have larygitis, esophagitis high dose PPI omeprazole 40 mg BID and repeat EGD in 3 months then titrate down on PPI Repeat EGD 04/18: esophagitis gastritis and erosions schatzki ring hiatal hernia PLAN: overall appearances are much better than last time high dose PPI omeprazole 40 mg BID for another 3 months then titrate down reflux precautions Path:numerous eosinophils in stomach and esophagus RAST pos for several substances incl egg white, almond, cow milk etc RENY is neg HGB --chronically low with low MCV repeat EGD/colonoscopy 08/2023 eosinophils in GEJ and distal esophagus only, not on proximal like last time, no polyps INTERIM: cont taking omeprazole and its working well for her she is waiting to do RASt for meat allergies denies nausea appetite is good EXAM: GENERAL: The patient is well developed and nontoxic. A/P; 1/ eosinophilic esophagitis and gastritis probably due to food allergies 2/ chronic iron def anemia, possibly due to fibroids, on leupron now PLAN: 1/ cont with omeprazole with BId dosing 2/ rept RAST for meats per pt request 3/ refill PPI 4/ if sx recur or worsen can try dupilumabb PFSH Medical History Arthritis Asthma Fibroid Anemia Surgical History (Updated 10/24/23 @ 11:36 by SULTANA Salinas) Hx of colonoscopy Hx of ankle fusion History of ovarian cystectomy Hx of section History of esophagogastroduodenoscopy (EGD) Social History Alcohol intake: never Patient Tobacco Use Status: Never used Tobacco Advance Directives Date on File: 12/01/22 service: No Current occupational status: employed Telehealth Telehealth Telehealth Platform: [employer] Location of provider rendering services: practice address Location of patient: address on file Patient Identification confirmed using: Name, : Yes Telehealth method: video Patient verbally consented to treatment: Yes Patient verbally consented to billing insurance company: Yes Patient informed of any privacy concerns related to visit: Yes Minutes spent on Phone/Video with Pt.: 9 Assessment & Plan Assessment & Plan (1) Duodenitis determined by biopsy: Code(s): K29.80 - Duodenitis without bleeding Category: Medical Plan: see above Medications: Refilled omeprazole 40 mg PO BID 120 caps 1RF Coding Level of Care Code Tele Est Pt Level 3 (33162) Diagnoses Duodenitis determined by biopsy K29.80
== END 2023-10-24 13:42 | disposition home or self-care (01) ==
LOC: HO.HGI 11:34
PROVIDERS: PCP Internal Medicine; Visit Provider Internal Medicine Gastroenterology
DX: K29.80 Duodenitis without bleeding (principal)
CPT/HCPCS: 99213

== ENCOUNTER → 2023-10-24 11:34 | Outpatient (BNVA) | payer OTHER, SELFPAY | PROVIDERS: PCP Internal Medicine; Visit Provider Internal Medicine Gastroenterology ==

== ENCOUNTER 2023-10-28 11:50 | Outpatient (REF) | payer OTHER, SELFPAY ==
[2023-10-28 12:05] LABS: MANUAL DIFF FLAG NO
[2023-10-28 12:21] LABS: Basophils Absolute Auto 0.1 X10*3/uL (0.0-0.2); Eosinophils Absolute Auto 0.4 X10*3/uL (0.0-0.4); Eosinophils Percent Auto 6.7 % (0-4); Hematocrit 41.1 % (37.0-47.0); Hemoglobin 12.4 g/dl (12.0-16.0); Imm Gran Abs Auto 0.02 X10*3/uL (0.00-0.03); Imm Gran Pct Auto 0.3 % (0.0-0.4); Lymphocytes Absolute Auto 1.8 X10*3/uL (1.2-4.9); Lymphocytes Percent Auto 30.6 % (20-40); Mean Corpuscular HGB Conc 30.2 g/dl (31.0-35.0); Mean Corpuscular Hemoglobin 22.5 pg (27.0-33.0); Mean Corpuscular Volume 74.6 fL (80.0-98.0); Mean Platelet Volume 10.7 fL (9.4-12.3); Monocytes Absolute Auto 0.3 X10*3/uL (0.1-1.2); Monocytes Percent Auto 5.7 % (2-11); Neutrophils Absolute Auto 3.3 x10*3/uL (2.0-8.3); Neutrophils Percent Auto 55.7 % (45-73); Platelet Count 254 X10*3/uL (160-400); Red Blood Count 5.51 X10*6/uL (4.20-5.50); Red Cell Distribution Width 17.1 % (11.0-16.0)
[2023-10-28 13:08] LABS: Ferritin 12 ng/mL (10-122); Iron 34 mcg/dL (30-160); Percent Iron Saturation 11 % (15-50); Total Iron Binding Capacity 307 mcg/dL (228-428); Unsaturated Iron Binding 273 ug/dL
[2023-10-31 17:13] LABS: Transglutaminase Ab IgG <1.0 U/mL; Transglutaminase IgA <1.0 U/mL
== END 2023-10-28 11:51 | disposition home or self-care (01) ==
LOC: HO.LAB 11:50
PROVIDERS: PCP Internal Medicine; Visit Provider Internal Medicine Gastroenterology
DX: K29.80 Duodenitis without bleeding (principal); G89.29 Other chronic pain; R10.33 Periumbilical pain; D64.9 Anemia, unspecified; Z91.018 Allergy to other foods
CPT/HCPCS: 36415; 82728; 83540; 85025; 86003; 86364

== ENCOUNTER 2024-12-06 16:53 | Emergency (ER) | payer OTHER, SELFPAY ==
--- NOTE | ~2024-12-06 | XR_ITS ---
CLINICAL HISTORY: pain Radiographs of the lumbar spine, 3 views Comparison: None Findings: Trace levocurvature with the apex at L4. No fracture. The vertebral body heights are preserved. There is mild lower lumbar multilevel intervertebral disc space narrowing with trace endplate osteophytosis. Mild lower lumbar facet hypertrophy. Peripherally calcified lesions in the pelvis measuring up to 13.4 cm, likely degenerating fibroids. Impression: No acute findings. Mild degenerative change. This document has been electronically signed by: Bere Londono MD on 12/06/2024 18:00:15
[2024-12-06 17:31] VITALS: BP 116/76; PULSE 80; RESP 18; TEMP 36.6; O2SAT 99; BMI 41.3
--- NOTE | 2024-12-06 17:33 | ED.GENADULT ---
HPI - General Adult General Chief complaint: Back Pain/Injury Stated complaint: lower back pain Time Seen by Provider: 12/06/24 18:47 Source: patient Mode of arrival: ambulatory Limitations: no limitations History of Present Illness ED Provider: Cherry Srivastava NP HPI narrative: Patient is a 34-year-old female who presents emergency department for evaluation of left lower back pain radiating into the upper buttock with onset of symptoms 4 days ago. She reports a history of similar pain in the past that she experienced while she was was told that she may have sciatica. She has trialed massage, lidocaine patches, topical heat, and Tylenol without improvement. She avoids toox-cdc-pydpsco NSAIDs due to her history of gastritis. Denies recent precipitating injury, fevers, chills, burning with micturition, urinary frequency/urgency/hesitancy, bladder or bowel dysfunction, numbness or tingling of the perineum or bilateral legs. Denies any recent surgical procedures, any known immune compromising conditions, personal history of cancer, or IV drug usage. Related Data Home Medications ?Medication ?Instructions ?Recorded ?Confirmed albuterol sulfate 2.5 mg/3 mL 2.5 mg inhalation Q4H PRN wheezing 12/01/22 09/20/23 (0.083 %) solution for nebulization albuterol sulfate 90 mcg/actuation 2 puff inhalation Q4H PRN wheezing 12/01/22 09/20/23 aerosol inhaler (Ventolin HFA) budesonide-formoterol HFA 160 2 puff inhalation BID 06/06/23 09/20/23 mcg-4.5 mcg/actuation aerosol inhaler leuprolide 3.75 mg intramuscular 3.75 mg IM Q4W 06/06/23 09/20/23 syringe kit (Lupron Depot) rizatriptan 10 mg tablet mg PO 10/24/23 Previous Rx's ?Medication ?Instructions ?Recorded ondansetron 4 mg disintegrating 4 mg PO Q8H PRN nausea and 04/13/23 tablet vomiting #20 tabs tramadol 50 mg tablet 50 mg PO TID PRN pain #10 tabs 04/13/23 omeprazole 40 mg capsule,delayed 40 mg PO BID #180 caps 08/14/24 release cyclobenzaprine 5 mg tablet 5 mg PO TID PRN muscle spasm #10 12/06/24 tabs Allergies Allergy/AdvReac Type Severity Reaction Status Date / Time hydromorphone [From Dilaudid] Allergy Mild facial/hand Verified 12/06/24 17:34 numbness latex [Latex] Allergy Unknown UNKNOWN Verified 10/24/23 11:34 Review of Systems Review of Systems: Yes all other systems are reviewed and are negative [facility] Past Medical History Attestation statement: The following information was validated with the patient. Source: old records reviewed Medical History Arthritis Asthma Fibroid Anemia Surgical History Hx of colonoscopy Hx of ankle fusion History of ovarian cystectomy Hx of section History of esophagogastroduodenoscopy (EGD) Social History Social History Alcohol intake: never Patient Tobacco Use Status: Never used Tobacco Smoked in Last 30 Days: No Use of substances other than those prescribed or required for medical reasons: No Advance Directives: Yes Advance Directives on File: Yes Advance Directives Date on File: 12/01/22 service: No Current occupational status: employed Physical Exam ED Vital Signs: Vital Signs - 24 hr 12/06/24 17:31 12/06/24 18:44 12/06/24 18:48 Temperature 97.8 F 98 F Pulse Rate 80 66 Respiratory Rate 18 17 Blood Pressure 116/76 112/48 L Pulse Oximetry 99 99 Oxygen Delivery Method Room Air Room Air 12/06/24 22:10 12/06/24 22:23 Temperature 97.9 F 97.9 F Pulse Rate 62 62 Respiratory Rate 18 18 Blood Pressure 104/64 104/64 Pulse Oximetry 97 97 Oxygen Delivery Method Room Air Room Air BMI result Body Mass Index 41.3 Appearance: Alert.?Oriented to person, place and time. No acute distress.?Normal affect. Eyes: Pupils equal, round and reactive to light.? ENT: Pharynx normal.?? Neck: Normal inspection.? Neck supple.?? CVS: Heart sounds normal. Normal heart rate and rhythm.? Pulses normal; bilateral radial pulses 2+, bilateral posterior tibial/dorsalis pedis pulses 2+.? Respiratory: No respiratory distress.? Lung sounds clear to auscultation bilaterally?? Abdomen: Soft and non-tender. Normoactive bowel sounds. No pulsatile mass.?? Skin: Skin warm and dry.? Normal skin color.? Normal skin turgor.?? Extremities: No lower extremity edema.? No calf ttp? Back: + moderate left paraspinal muscular tenderness from lumbar region to coccyx. No CVA tenderness. No midline spinal tenderness, step-off's, or deformity. Full ROM intact in bilateral lower extremities. Straight leg test negative on right; Straight leg test positive on left. No rashes, lesions, areas of induration or fluctuance, or signs of infection noted., Neuro: Moves all extremities spontaneously. 5/5 strength in hip extension/flexion, abduction, adduction. Sensation to light touch intact bilaterally. Patellar and Achilles reflex 2+ bilaterally. No ataxia, gait normal and steady.. No focal neuro deficits. Course Course Course Narrative: RME, this is a rapid medical exam performed by Ethan Holliday please refer to primary provider for complete H&P- 34 year old female presents for evaluation of left lower back pain. She reports that she has similar pain while she was but, they couldn't do anything. Her pain does not radiate. She denies GI or symptoms. Plan for lumbar x-ray Reevaluation(s) Reevaluation #1: Patient endorsing symptomatic improvement after receiving cyclobenzaprine, she is ambulatory with a slow steady gait, at this time feel that she is stable for discharge home will send a prescription for cyclobenzaprine to pharmacy, outpatient follow-up with PCP and given strict return precautions. All questions answered Medications Administered Discontinued Medications Generic Name Dose Route Start Last Admin Trade Name Freq PRN Reason Stop Dose Admin Cyclobenzaprine HCl 10 mg 12/06/24 19:02 12/06/24 19:39 Cyclobenzaprine Hcl 10 Mg Tablet PO 12/06/24 19:03 10 mg ONCE ONE Administration Ketorolac Tromethamine 15 mg 12/06/24 19:02 12/06/24 19:39 Ketorolac Tromethamine 15 Mg/Ml Vial IM 12/06/24 19:03 15 mg ONCE ONE Administration Medical Decision Making Medical Decision Making MDM Narrative: Patient is a 34-year-old female with past medical history of arthritis, asthma, fibroids, anemia who presents emergency department for evaluation of left lower back pain radiating into the buttock as per HPI. Pain is most consistent with muscular pain versus radiculopathy, although cannot completely exclude herniated disc. On neurological exam there are no deficits. Atraumatic in nature, no acute bony tenderness, unlikely to be spinal fracture. Exam findings not consistent with cauda equina syndrome. No recent fevers, unintentional weight loss, history of IVDA, high-risk past medical history, immunosuppression, recent surgery or lumbar puncture to suggest spinal infection, epidural abscess, malignancy. Not consistent with AAA or dissection. No genitourinary symptoms, afebrile, no CVA tenderness, unlikely urinary tract infection, pyelonephritis, renal colic. No history of nephrolithiasis/ureteral calculi. She denies concern for recording LMP 1.5 years ago secondary to Leuprolide for uterine fibroids, declines providing urinalysis. She received IM Toradol in the emergency department as well as cyclobenzaprine. Differential Diagnosis Differential Diagnoses: The differential diagnosis associated with the presentation includes ( see narrative above) Admission/Observation Consideration of admission/observation: Escalation of care including admission/observation considered ( see narrative above) Independent Interpretation I performed an independent interpretation of an: Plain X-Ray (no Acute fracture) Radiology Impression Discussion of test interpretation with radiology: I have reviewed the radiologist's reading. Radiologist Impression: Radiographs of the lumbar spine, 3 views Comparison: None Findings: Trace levocurvature with the apex at L4. No fracture. The vertebral body heights are preserved. There is mild lower lumbar multilevel intervertebral disc space narrowing with trace endplate osteophytosis. Mild lower lumbar facet hypertrophy. Peripherally calcified lesions in the pelvis measuring up to 13.4 cm, likely degenerating fibroids. Impression: No acute findings. Mild degenerative change. External Record Review External record reviewed: Outpatient record Tests considered The following testing was considered but not selected: See narrative above, would defer CT/MRI imaging Prescription Management I considered prescription management with: Pain Medication Discharge Plan Discharge Clinical Impression: Strain of lumbar region Patient Disposition: Home, Self-Care Instructions: Low Back Strain (ED), Lower Back Exercises (ED) Additional Instructions: Please be sure to rest over the next few days. You may trial ice/heat return 15 minutes 4-6 times daily. Continue use of acetaminophen/Tylenol and lidocaine patches. For pain that is unrelieved by the above I have sent a short prescription for a muscle relaxant to your pharmacy; cyclobenzaprine. This medication may make you drowsy. You should not drive, drink alcohol, or work while taking this medication. Please contact your primary care provider to arrange for follow-up visit, we persistent symptoms they may consider a course of physical therapy and/or referral to a specialist. You may return back to emergency department any new or worsening symptoms or concerns. Prescriptions: New cyclobenzaprine 5 mg tablet 5 mg PO TID PRN (Reason: muscle spasm) Qty: 10 0RF No Action omeprazole 40 mg capsule,delayed release(DR/EC) 40 mg PO BID Qty: 180 1RF albuterol sulfate 2.5 mg /3 mL (0.083 %) solution for nebulization 2.5 mg inhalation Q4H PRN (Reason: wheezing) albuterol sulfate [Ventolin HFA] 90 mcg/actuation HFA aerosol inhaler 2 puff inhalation Q4H PRN (Reason: wheezing) ondansetron 4 mg tablet,disintegrating 4 mg PO Q8H PRN (Reason: nausea and vomiting) Qty: 20 0RF rizatriptan 10 mg tablet PO Lupron Depot 3.75 mg syringe kit 3.75 mg IM Q4W budesonide-formoterol 160-4.5 mcg/actuation HFA aerosol inhaler 2 puff inhalation BID tramadol 50 mg tablet 50 mg PO TID PRN (Reason: pain) Qty: 10 0RF Referrals: Dallas Hernandez III, MD [Primary Care Provider] - Interventions: ED Discharge Assessment Last Done: 12/06/24 22:23 Discharge Date/Time: 12/06/24 22:23 Print Language: Sinhala
[2024-12-06 18:44] VITALS: PULSE 66; RESP 17; TEMP 36.6; O2SAT 99
[2024-12-06 18:48] VITALS: BP 112/48
--- OUTSIDE RECORDS SUMMARY | 2024-12-06 18:59 | XMS_ITS | Encounter Summary ---
Author Organization [employer] [facility] Address [address] [place] [address] Care Team Providers Care Spot Sprayer Name Role Phone Unavailable Primary Care Provider Unavailabl e Encounter Details Date Type Department Care Team (Latest Contact Info) Description 06/23/2020 Abstract [facility] CONVERSIONS Dental, Provider, DDS Social History Tobacco Use Types Packs/Day Years Used Date Smoking Tobacco: Never Assessed Comments Unknown Sex and Gender Information Value Date Recorded Sex Assigned at Female 04/26/2022 10:23 AM EDT Legal Sex Female 10:23 AM EDT Gender Identity Female 04/26/2022 10:23 AM EDT Sexual Orientation Straight 04/26/2022 10 :23 AM EDT documented as of this encounter Plan of Treatment Upcoming Encounters Date Type Department Care Team (Late st Contact Info) Description 02/15/2025 10:00 AM EDT Office Visit [facility] [address] [place] [address] Troy Eckertaris [address] [place] [address] documented as of this encounter Visit Diagnoses Not on filedocumented in this encounter
[2024-12-06] MEDS: Ketorolac Tromethamine 15 MG/ML VIAL IM (19:39)
[2024-12-06] MEDS: Cyclobenzaprine HCl 10 MG TABLET PO (19:39)
[2024-12-06 22:10] VITALS: BP 104/64; PULSE 62; RESP 18; TEMP 36.6; O2SAT 97
[2024-12-06 22:23] VITALS: BP 104/64; PULSE 62; RESP 18; TEMP 36.6; O2SAT 97
== END 2024-12-06 22:23 | disposition home or self-care (01) ==
PROVIDERS: Emergency Provider Emergency Medicine; PCP Internal Medicine
DX: S39.012A Strain of muscle, fascia and tendon of lower back, initial encounter (principal); X58.XXXA Exposure to other specified factors, initial encounter; Y93.9 Activity, unspecified; Y92.9 Unspecified place or not applicable; Y99.8 Other external cause status; Z79.899 Other long term (current) drug therapy
CPT/HCPCS: 72100; 96372; 99284; J1885

== ENCOUNTER → 2024-12-06 17:33 | Outpatient (BNV) | payer OTHER, SELFPAY | PROVIDERS: PCP Internal Medicine; Visit Provider Radiology Diagnostic Radiology | DX: M54.50 Low back pain, unspecified (principal) | CPT/HCPCS: 72100 ==

== ENCOUNTER → 2025-02-23 21:20 | Outpatient (BNV) | payer OTHER, SELFPAY | PROVIDERS: Emergency Provider Student in an Organized Health Care Education/Training Program; PCP Internal Medicine; Visit Provider Radiology Diagnostic Radiology | DX: R07.89 Other chest pain (principal); R06.02 Shortness of breath | CPT/HCPCS: 71045 ==

== ENCOUNTER 2025-02-23 21:37 | Emergency (ER) | payer OTHER, SELFPAY ==
--- NOTE | ~2025-02-23 | XR_ITS ---
CLINICAL HISTORY: chest pressure sob 1 view chest x-ray Comparison: None provided Findings: Lungs are clear without acute infiltrates. No pneumothorax. Heart size normal. No acute bony abnormalities. Impression: No acute processes This document has been electronically signed by: Gagan Cade MD on 02/23/2025 23:11:36
--- NOTE | ~2025-02-23 | CT_ITS ---
CLINICAL HISTORY: PE rule out CT angiography chest with contrast. 3D Postprocessing. Comparison: CT/SR - CT CHEST ANGIOGRAPHY WITH IV CONTRAST - 06/24/23 16:00 EST Findings: The heart is normal size. RV/LV ratio is normal. The thoracic aorta is normal caliber. No pulmonary artery filling defects. No consolidation, pleural effusion, or pneumothorax. No adenopathy. Thyroid and thoracic esophagus within normal limits. The visualized upper abdomen demonstrates no acute process. The bones are intact. IMPRESSION: 1. No pulmonary embolus. 2. No acute findings in the chest. This document has been electronically signed by: Viviana Tang MD on 02/24/2025 01:03:15
--- NOTE | 2025-02-23 21:39 | ECG_ITS ---
Test Reason : CHEST PAIN Blood Pressure : */* mmHG Vent. Rate : 71 BPM Atrial Rate : 71 BPM P-R Int : 136 ms QRS Dur : 86 ms QT Int : 414 ms P-R-T Axes : 46 34 14 degrees QTcB Int : 449 ms Normal sinus rhythm Normal ECG When compared with ECG of 24-Jun-2023 12:21, No significant change was found Referred By: Generic ED Physician Electronically Signed By: LUPIS ALVAREZ
[2025-02-23 21:42] VITALS: BP 120/62; PULSE 74; RESP 16; TEMP 36.9; O2SAT 95; BMI 41.5
--- OUTSIDE RECORDS SUMMARY | 2025-02-23 22:14 | XMS_ITS | Encounter Summary ---
Author Organization [facility] Address [address] [place] [id number] Phone Care Team Providers Care Pharmacy Student Name Role Phone Lupe Plummer MD Primary Care Provider Encounter Details Date Type Department Care Team (Late st Contact Info) Description 12/17/2010 Documentation EM Family Medicine [address] [place] [address] Family Medicine, Physician [address] [place], [place] [id number] Social History Tobacco Use Types Packs/Day Years Used Date Smoking Tobacco: Never Assessed Comments Unknown Sex and Gender Information Value Date Recorded Sex Assigned at Not on file Legal Sex Female 4:28 PM EDT Gender Identity Not on file Sexual Orientation Not on file documented as of this encounter Plan of Treatment Not on file documented as of this encounter Visit Diagnoses Not on filedocumented in this encounter Care Teams Pharmacy Student Relationship Specialty Start Date End Date Lupe Plummer MD [address] [place] [address] SHENG Coats [id number] PCP - General 02/04/17 12/09/22 documented as of this encounter
--- OUTSIDE RECORDS SUMMARY | 2025-02-23 22:14 | XMS_ITS | Clinical Summary ---
Author Organization [facility] Address [address] [place] [address] Phone Care Team Providers Care Glass Loading Equipment Tender Name Role Phone Unavailable Primary Care Provider Unavailabl e Immunizations Immunization Administration Dates Next Due DTP 12/14/1994, 2,1990,06/29,1990 H1N1 05/01/2009 HPV, Quadrivalent 06/07/2008,01/15/2008,11/13/19 08 Hep B, ped/adol 05/02/2002,02/12/2002,05/02/2000 Hib (PRP-T) 04/30/1991,1990,1990 IPV 12/14/1994 Influenza, injectable, trivalent 05/01/2008 MMR 12/14/1994,04/30/1991 Meningococcal Conj (Menactra) MCV4P 11/13/2007 OPV 08/06/1991,1990,1990 Td (adult) (MBL), 2 Lf tetan us toxoid, PF, adsorbed 05/16/2001 Tdap 11/13/2007 Family History Relation Name Status Comments Brother 1 Alive Brother: Asthma , Asthma Brother 2 Alive Brother: Asthma , Asthma Father Alive Father: Alive a nd well Mother Alive Mother: Asthma Other 1 grandma: Sudden /NM under age 55 Other 2 grandfather: Di abetes mellitus Other 3 aunt: Migraines Other 4 grandparents: A sthma Other 5 Family history of Obesity, No family history of Developmental dislocation of hip, No family history of Seizure disorder, Family history of ADD/ADHD, No family history of Autism, No family history of Deafness, No family history of Elevated cholesterol, No family history of Strabismus/amblyopia Sister Alive Sister: Alive a nd well Social History Tobacco Use Types Packs/Day Years Used Date Smoking Tobacco: Never Assessed Comments Unknown Sex and Gender Information Value Date Recorded Sex Assigned at Not on file Legal Sex Female 4:28 PM EDT Gender Identity Not on file Sexual Orientation Not on file Last Filed Vital Signs Vital Sign Reading Time Taken Comments Blood Pressure - - Pulse 93 09/22/2009 12:00 AM EDT Temperature 36.5 C (97.7 F) 09/22/2009 12:00 AM EDT Respiratory Rate - - Oxygen Saturation 100% 09/22/2009 12:00 AM EDT Inhaled Oxygen Concentration - - Weight 76.7 kg (169 lb) 09/22/2009 12:00 AM EDT Height - - Body Mass Index - - Plan of Treatment Health Maintenance Due Date Last Done Comments Varicella Vaccines (1 of 2 - 13+ 2-dose series) 05/29/2009 COVID-19 Vaccine (2 - 2023- season) 2024 05/01/2021 Influenza Vaccines (#1) 2025 04/21/2021, 05/01 DTaP,Tdap,and Td Vaccines (8 - Td or Tdap) 03/10/2031 03/10/2021, 11/13/2007, 05/16/2001, Additional history exists HIB Vaccines Completed 04/30/1991, 08/25, 1990 IPV Vaccines Completed 12/14/1994, 07/28, 1990, Additional history exists MMR Vaccines Completed 12/14/1994, 04/30/1991 Hepatitis B Vaccines Completed 05/02/2002, 02/12/2002, 05/02/2000 Meningococcal Vaccine Completed 11/13/2007 HPV Vaccines Completed 06/07/2008, 12/26, 11/13/2007 Hepatitis A Vaccines Aged Out No long er eligible based on patient's age to complete this topic Men B Vaccine Aged Out No longer elig ible based on patient's age to complete this topic Pneumococcal Vaccine Aged Out No long er eligible based on patient's age to complete this topic
--- OUTSIDE RECORDS SUMMARY | 2025-02-23 22:14 | XMS_ITS | Clinical Summary ---
Author Organization [employer] Address [address] [facility] [address] [place] [address] Care Team Providers Care Remote Recruiter Name Role Phone Unavailable Primary Care Provider Unavailabl e Allergies Active Allergy Reactions Criticality Noted Date Comments Hydromorphone 10/21/2017 Other Reaction(s): Pressure pt feels pressure in her face Latex Rash Low 03/21/2013 Medications budesonide-formoter ol (Symbicort) 160-4.5 MCG/ACT inhaler Inhale 2 puffs in the morning and at bedtime. Rinse mouth with water after use to reduce aftertaste and incidence of candidiasis. Do not swallow. Active omeprazole (PriLOSEC) [address] capsule Take 40 mg by mouth before breakfast. Do not crush or chew. Active albuterol 108 (90 Base) MCG/ACT inhaler Inhale 2 puffs every 6 (six) hours if needed for wheezing. Active rizatriptan (Maxalt) 10 MG tablet Take 10 mg by mouth 1 (one) time if needed for migraine. May repeat in 2 hours if unresolved. Do not exceed 30 mg in 24 hours. Active Sodium Fluoride (PreviDent 5000 Booster Plus) 1.1 % pasteIndications:To oth decalcification Apply 1 g/day to teeth 1 (one) time for 1 dose. 1 g 3 04/16/20 Active traMADol (Ultram) 50 MG tablet Take by mouth. Ac tive Active Problems Problem Noted Date Diagnosed Date Normal oral exam 08/14/2024 Tooth decalcification 02/07/2024 Dental caries 02/07/2024 Gingival bleeding 02/07/2024 Dental calculus 02/17/2023 Social History Tobacco Use Types Packs/Day Years Used Date Smoking Tobacco: Never Passive Smoke Exposure: Never Smokeless Tobacco: Never Tobacco Cessation:Counseling Given: Not Answered Comments Unknown Sex and Gender Information Value Date Recorded Sex Assigned at Female 04/26/2022 10:23 AM EDT Legal Sex Female 10:23 AM EDT Gender Identity Female 04/26/2022 10:23 AM EDT Sexual Orientation Straight 04/26/2022 10 :23 AM EDT Last Filed Vital Signs Vital Sign Reading Time Taken Comments Blood Pressure 145/85 08/14/2024 7:00 AM EST Pulse 85 08/14/2024 7:00 AM EST Temperature - - Respiratory Rate - - Oxygen Saturation - - Inhaled Oxygen Concentration - - Weight - - Height - - Body Mass Index - - Plan of Treatment Health Maintenance Due Date Last Done Comments Depression Screening 1990 HIV Screening 1990 Lipid Panel 1990 SDOH Screening 1990 Disability Screening 1990 Alcohol/Substance Use Screening 2002 Family Planning (PISQ) 2005 Hepatitis C Screening 02/02/2008 Pap Smear 2011 Pneumococcal Vaccine: Pediatrics (0 to 5 Years) and At-Risk Patients (6 to 49) Years (2 of 2 - PCV) 07/18/2018 07/18/2017 Cervical Cancer Screening 02/02/2020 HPV/Cotest 02/02/2020 COVID-19 Vaccine ( season) 2024 05/01/2021, 08/07/2020, 07/10/2020 Dental X-Ray: Bitewings 02/07/2025 02/07/20 24, 01/11/2024, 02/17/2023, Additional history exists Dental Oral Exam 02/12/2025 08/14/2024, , 02/17/2023, Additional history exists Dental Prophylaxis 02/12/2025 08/14/2024, 0 02/07/2024, 02/17/2023, Additional history exists Influenza Vaccine (#1) 2025 , 06/14/2022, 04/21/2021, Additional history exists Tobacco Screening 08/14/2025 08/14/2024 Dental X-Ray: Full Mouth 02/18/2026 023, 06/23/2020, 07/19/2008 DTaP/Tdap/Td Vaccines (10 - Td or Tdap) 03/02/2034 03/02/2024, 03/10/2021, 08/15/2012, Additional history exists Zoster Vaccines (1 of 2) 02/02/2040 RSV Patients and Patients Aged 60 years or older (1 - 1-dose 75+ series) 2065 HIB Vaccines Completed 04/30/1991, 08/25, 1990 IPV Vaccines Completed 12/14/1994, 07/28, 1990, Additional history exists HPV Vaccines Completed 06/07/2008, 12/26, 11/13/2007 Hepatitis B Vaccines Completed 09/19/2012, 08/15/2012, 05/02/2002, Additional history exists Meningococcal Vaccine Completed 09/19/2012, 008 Hepatitis A Vaccines Aged Out No long er eligible based on patient's age to complete this topic Meningococcal B Vaccine Aged Out No l onger eligible based on patient's age to complete this topic RSV under 20 months Aged Out No longe r eligible based on patient's age to complete this topic Rotavirus Vaccines Aged Out No longer eligible based on patient's age to complete this topic Procedures Procedure Name Priority Date/Time Associated Diagnosis Comments PROPHYLAXIS - ADULT Routine 08/14/2024 8 :45 AM EST PERIODIC ORAL EVALUATION - ESTABLISHED PATIENT Routine 08/14/2024 8:45 AM EST BITEWINGS - 4 RADIOGRAPHIC IMAGES Routine 02/07/2024 8:00 AM EDT Dental calculus Tooth decalcification Dental caries Gingival bleeding INTRAORAL - COMPLETE SERIES OF RADIOGRAPHIC IMAGES Routine 02/17/2023 11:00 AM EDT Dental calculus from Last 3 Months or Most Recently Relevant to Health Maintenance Insurance [facility] MEDICAID STAND ADULT
--- OUTSIDE RECORDS SUMMARY | 2025-02-23 22:14 | XMS_ITS | Encounter Summary ---
Author Organization [employer] [facility] Address [address] [facility] 7[address] [place] [address] Care Team Providers Care Prior Authorization Technician Name Role Phone Unavailable Primary Care Provider Unavailabl e Encounter Details Date Type Department Care Team (Latest Contact Info) Description 06/23/2020 Abstract [facility] CONVERSIONS Dental, Provider, DDS Social History Tobacco [...]
--- OUTSIDE RECORDS SUMMARY | 2025-02-23 22:14 | XMS_ITS | Encounter Summary ---
Author Organization [facility] Address [address] [facility] [address] [place] [address] Care Team Providers Care Non Licensed Nuclear Plant Operator Name Role Phone Unavailable Primary Care Provider Unavailabl e Encounter Details Date Type Department Care Team (Latest Contact Info) Description 10/30/2018 Abstract C CONVERSIONS Dental, Provider, DDS Social History Tobacco [...]
--- OUTSIDE RECORDS SUMMARY | 2025-02-23 22:14 | XMS_ITS ---
Author Organization [address] [facility] Address [address] [place] [address] Phone Care Team Providers Care Refinery Operator Helper Crude Unit Name Role Phone Dallas Hernandez MD Primary Care Provider [phone] Transitional Care Management Status:Ongoing (Active) Start date:02/16/2025 Enrollment date:02/18/2025 Case Team Name Relationship Phone Cleopatra Jacob RN Care Manager(Responsible S taff) Continued Care and Services Coordination
--- OUTSIDE RECORDS SUMMARY | 2025-02-23 22:14 | XMS_ITS | Encounter Summary ---
Author Organization [facility] Address [address] [place] [address] Phone Care Team Providers Care Seed Yeast Operator Name Role Phone Lupe Plummer MD Primary Care Provider Encounter Details Date Type Department Care Team (Late st Contact Info) Description 02/10/2017 Conversion Encounter [facility] [place] [address] [place], [place] [id number] Social History Tobacco Use Types Packs/Day Years [...] on filedocumented in this encounter Care Teams Seed Yeast Operator Relationship Specialty Start Date End Date Lupe Plummer MD [address] [place] [address] PCP - General 02/04/17 12/09/22 documented as of this encounter
--- OUTSIDE RECORDS SUMMARY | 2025-02-23 22:14 | XMS_ITS | Clinical Summary ---
Author Organization [facility] Address [address] [place] [address] Care Team Providers Care Manager Site Name Role Phone Dallas Hernandez MD Primary Care Provider [phone] Allergies Active Allergy Reactions Criticality Noted Date Comments Hydromorphone 12/30/2020 Latex 12/30/2020 Medications Medication Sig Dispensed Refills Start Date End Date Status albuterol (PROVENTIL) (2.5 MG/3ML) 0.083% nebulizer solution USE 1 VIAL VIA NEBULIZER EVERY 6 HOURS NEEDED FOR WHEEZE/SHORTNESS OF BREATH 0 12/03/2020 Active Aspirin Low Dose 81 MG EC tablet Take 162 mg by mouth daily. 0 12/17/2020 Active ferrous sulfate 325 (65 FE) MG tablet 0 12/29/2020 Active indomethacin (INDOCIN) 25 MG capsule TAKE 1 CAPSULE BY MOUTH TWICE A DAY WITH MEALS 0 12/09/2020 Active metroNIDAZOLE (METROGEL) 1 % gel APPLY TO AFFECTED AREA EVERY DAY FOR 7 DAYS 0 12/26/2020 Active montelukast (SINGULAIR) 10 MG tablet 0 12/29/2020 Active oxyCODONE (OXY-IR) 5 MG capsule TAKE 2 CAPSULES BY MOUTH EVERY 6 HOURS NEEDED FOR PAIN 0 12/26/2020 Active 27-1 MG TABS 0 12/28/2020 Act chun Active Problems Estimated Date of Delivery Comme nts Yes 06/01/2012 No known active problems Social History Tobacco Use Types Packs/Day Years Used Date Smoking Tobacco: Never Smokeless Tobacco: Never Alcohol Use Standard Drinks/Week Comments Never 0 (1 standard drink = 0.6 oz pur e alcohol) Estimated Date of Delivery Comme nts Yes 06/01/2012 Sex and Gender Information Value Date Recorded Sex Assigned at Not on file Gender Identity Not on file Sexual Orientation Not on file Last Filed Vital Signs Vital Sign Reading Time Taken Comments Blood Pressure 117/70 12/30/2020 11:52 AM EDT Pulse 105 12/30/2020 11:52 AM EDT Temperature 36.5 C (97.7 F) 12/30/2020 11:52 AM EDT Respiratory Rate - - Oxygen Saturation 99% 12/30/2020 11:52 AM EDT Inhaled Oxygen Concentration - - Weight 96.6 kg (213 lb) 12/30/2020 11:52 AM EDT Height 168.9 cm (5' 6.5 ) 12/30/2020 11:52 AM ED T Body Mass Index 33.86 12/30/2020 11:52 AM EDT Plan of Treatment Health Maintenance Due Date Last Done Comments Hepatitis B Vaccines (1 of 3 - 3-dose series) 1990 Hepatitis C Screening 1990 COVID-19 Vaccine (#1) 1990 Depression Screening 2002 Preventative Health Evaluation 02/02/2008 Cervical Cancer Screening (Pap Smear) 2011 DTap / Tdap / Td (8 - Td or Tdap) 08/15/2022 08/15/2012, 11/13/2007, 05/16/2001, Additional history exists Influenza Vaccine (#1) 2025 9, 08/15/2018, 04/18/2017, Additional history exists RSV Adult > 60+ Yrs or (1 - 1-dose 75+ series) 2065 Pneumococcal Vaccine Aged Out 07/18/2017 No long er eligible based on patient's age to complete this topic RSV Ped < 20 months Aged Out No longe r eligible based on patient's age to complete this topic Advance Directives For more information, please contact: [phone] Documents on File Type Date Recorded Patient Physician Specialist Expl anation Advance Directive and Living Will 12/30/2020 PRIVACY DISCLOSURE Care Teams Manager Site Relationship Specialty Start Date End Date Dallas Hernandez MD PCP - General Internal Medicine 12/30/20
--- OUTSIDE RECORDS SUMMARY | 2025-02-23 22:14 | XMS_ITS | Clinical Summary ---
Author Organization [facility] Address [address] [place] [address] Phone Care Team Providers Care Pump Mechanic Name Role Phone Dallas Hernandez MD Primary Care Provider [phone] Allergies Active Allergy Reactions Criticality Noted Date Comments Hydromorphone Hcl 09/23/2011 Pressure on face Latex 02/02/2010 Rash/ itchy Other Runny nose Low 11/03/2020 Seasonal Allergies Triggers asthma Medications EPINEPHrine (EpiPen 2-Rivera) 0.3 mg/0.3 mL injection Inject 1 Device as directed as needed (anaphylaxis) . Use as directed 03/02/20 24 Active ferrous sulfate 325 mg (65 mg elemental iron) tablet 12/30/19 21 Active leuprolide (LUPRON DEPOT) 3.75 mg Inject 1 Kit into the muscle every 28 days. Active rizatriptan (MAXALT) 5 mg tablet Take 1 Tablet by mouth as needed for Migraine. May repeat in 2 hours if needed 03/02/20 24 Active budesonide-formo teroL (SYMBICORT) 160-4.5 mcg/actuation inhaler Inhale 2 puffs by mouth 2 (two) times a day. Rinse mouth with water after use to reduce aftertaste and incidence of candidiasis. Do not swallow. 1 each 2 09/08/19 25 026 Active fenofibrate (TRICOR) 145 mg tablet Take 1 tablet (145 mg total) by mouth 1 (one) time each day. 90 tablet 2 09/08/19 25 Active montelukast (SINGULAIR) 10 mg tablet Take 1 tablet (10 mg total) by mouth at bedtime. at bedtime. 90 tablet 2 09/08/19 25 Active Ventolin HFA 90 mcg/actuation inhalerIndicatio ns:Severe persistent asthma without complication ([facility] V28) INHALE 2 PUFFS BY MOUTH EVERY 6 HOURS NEEDED FOR WHEEZE 18 each 2 12/19/19 25 Active fluticasone propionate (FLONASE) 50 mcg/actuation nasal spray INSTILL 1 SPRAY INTO EACH NOSTRIL 1 TIME PER DAY. SHAKE GENTLY. AFTER USE, CLEAN TIP AND REPLACE CAP 32 mL 1 02/19/20 25 Active fluticasone propionate (FLONASE) 50 mcg/actuation nasal spray Administer 1 spray into each nostril 1 (one) time each day. Shake gently. Before first use, prime pump. After use, clean tip and replace cap. 16 mL 1 09/08/19 25 025 Discontinued Active Problems Problem Noted Date Diagnosed Date Cerebral aneurysm without rupture 02/04/2023 Overview (05/11/2024): Last Assessment & Plan: I reviewed this in detail with Ms. Castro and her only risk factor is the family history. She does not smoke or have hypertension though I cautioned her that either of these can lead to aneurysm progression with the creation of new ones. At this point, the aneurysms are too small to treat. We will continue routine surveillance and if anything changes, I discussed referring her to a neurovascular/endovascular specialist. She is agreeable with the plan. Fibroid uterus 12/07/2020 Overview (05/11/2024): Multiple enlarged fibroids intramural and pedinculated Severe persistent asthma without complication ([facility] V28) 11/06/2019 Overview (05/11/2024): Last Assessment & Plan: 83-year-old woman with moderate to severe persisting asthma. She has been more controlled with the Symbicort 160 mcg 1 puff twice a day using it every day but still during the past couple weeks her asthma has not been well. I do think that this is secondary to may be a viral infection or allergies. I will start with Singulair 10 mg p.o. every night and treatment for the runny nose with Flonase 1 puff in each nostril once a day. 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 Singulair 10 mg p.o. every day 2. Flonase 1 puff in his nostril once a day. Endometriosis 01/01/2016 Overview (05/11/2024): S/p bilateral ovarian cystectomy [place] [address] 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 Surgery at 6 months, s/p release at 1 yr old; Shriner's Migraine headache 11/09/2011 Overview (05/11/2024): Follows with neurology, Topamax prior to . Follows 6 mth basis. Iron deficiency anemia 10/07/2011 Overview (05/11/2024): Unable to tolerate PO iron. Has seen hematology ([facility]): 12/30/20:Pending repeat labs may need Iron infusion. Last Assessment & Plan: I referred her to Hematology for consideration of iron infusions. Immunizations Name Administration Dates Next Due Hepatitis B (Rnmwkiz-A-Rvrfk , Recombivax HB-Adult) 19yo and older 09/19/2012,08/15/2012 Influenza Quadravalent, MDCK , 0.5ml, preservative free (Flucelvax) 6mo and older 06/13/2019,08/15/2018 Influenza Quadravalent, MDCK , 0.5ml, with preservative (Flucelvax) 6mo and older 04/18/2017 Influenza trivalent, 0.5mL, preservative free (Fluarix; FluLaval; Fluzone) ages 6mo and older (Afluria) 3 years and older 03/02/2024,03/25/2016,06/10/2015,03/26,03/15/2012,03/14/2012,03/26/2011 ,03/18/2010 Meningococcal MCV4P 09/19/2012 PPD Test 04/26/2018,11/09/2016,03/23/2016 Pneumococcal polysaccharide 23 valent (Pneumovax 23) 2yo and older 07/18/2017 Tdap Tetanus diptheria acell ular pertussis (Boostrix; Adacel) 7yo and older 03/02/2024,08/15/2012 Varicella live (Varivax) 12m o and older 03/23/2016,08/22/2012 Surgical History Surgery Date Site/Laterality Comments FOOT SURGERY age 1 Bilateral PROCEDURE: HISTORICAL FOOT SURGERY; COMMENT: club feet HERNIA REPAIR 1991 PROCEDURE: REPAIR UMBILICAL HERNIA UPPER GASTROINTESTINAL ENDOSCOPY 07/25/2019 PROCEDURE: RI UPPER GI ENDOSCOPY PERFORMED; COMMENT: Minimal antral erosive gastritis; gastric and esophageal biopsies obtained. Pathology: Eosinophilic esophagitis and gastritis. No Helicobacter pylori. ANKLE SURGERY 07/06/2017 Left PROCEDURE: HISTORICAL ANKLE SURGERY; COMMENT: arthroscopy and hardware removal FOOT SURGERY 03/05/2015 Left PROCEDURE: HISTORICAL FOOT SURGERY; COMMENT: subtalar fusion revision,bone graft & hardware removal; 08/29/2013 triple arthrodesis, ankle tendo-Achilles lengthening OVARIAN CYST REMOVAL PROCEDURE: RI OVARIAN CYSTECTOMY UNI/BI; COMMENT: laprascopic surgery 4-5yrs ago approx 2017 WISDOM TOOTH EXTRACTION Bilateral PROCEDURE: HISTORICAL WISDOM TEETH EXTRACTION; COMMENT: all 4 wisdom teeth removed 9-10yrs ago. 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 Surgery at 6 months, s/p release at 1 yr old; Shriner's Prurigo nodularis 06/01/2019 DX:Prurigo nod ularis Moderate persistent asthma w ithout complication 10/24/2017 DX:Moderate persistent asthm a without complication Iron deficiency anemia 10/07/2011 DX:Iron d eficiency anemia House dust mite allergy 10/24/2017 DX:House dust mite allergy Gastroesophageal reflux disease 03/09/2019 DX:Gastroesophageal reflux disease Eosinophilic gastritis 07/30/2019 DX:Eosino philic gastritis Eosinophilic esophagitis 07/30/2019 DX:Eosi nophilic esophagitis Endometriosis 01/01/2016 DX:Endometriosis Cysts of both ovaries 04/22/2015 DX:Cysts o f both ovaries Chronic seasonal allergic rhinitis 10/24/2017 DX:Chronic seasonal allergic rhinitis DJD (degenerative joint dise ase), ankle and foot, left 08/21/2019 DX:DJD (degenerative joint disease), ankle and foot, left; COMMENT: S/p multiple surgeries Hiatal hernia DX:Hiatal hernia Family History Medical History Relation Name Comments Other: chiari malformation Aunt x 2; maternal; also maternal cousin Asthma Brother 1 Asthma Brother 2 Asthma Maternal Grandfather Diabetes Maternal Grandfather d from complications Arthritis Maternal Grandmother htn, as thma Asthma Maternal Grandmother Arthritis Mother asthma Asthma Mother Other: ovaries removed Mother Diabetes Other both sides Other cancer Paternal Grandfather Brain Aneurysm Paternal Grandmother Breast cancer Neg Hx Colon cancer Neg Hx Ovarian cancer Neg Hx Relation Name Status Comments Aunt Brother 1 Alive Brother 2 Alive Father Alive Maternal Grandfather Maternal Grandmother Alive Mother Alive obese, asthma Other Paternal Grandfather Paternal Grandmother Sister Alive Social History Tobacco Use Types Packs/Day Years Used Date Smoking Tobacco: Never Smokeless Tobacco: Never Tobacco Cessation:Counseling Given: Not Answered Alcohol Use Standard Drinks/Week Comments No 0 (1 standard drink = 0.6 oz pur e alcohol) Housing Instability Answer Date Recorde d Are you worried that in the next 2 months you may not have stable housing? No 02/18/2025 Food Access & Nutrition Answer Date Rec orded Do you have access to a vari ety of food including fruits and vegetables? Yes 02/18/2025 Access to Healthcare Answer Date Record ed Within the last 3 months, ho w many times did you visit the emergency department for your medical care? 0 02/18/2025 Financial Risk Answer Date Recorded How hard is it for you to pa y for the very basics like food, housing, medical care, and air conditioning / heating? Not very hard 02/18/2025 Transportation Answer Date Recorded Has the lack of transportati on kept you from meetings, work, or from getting things needed for daily living? No Has the lack of transportati on kept you from medical appointments or from getting medications? No 02/18/2025 Food Risk Answer Date Recorded Within the past 12 months we worried whether our food would run out before we got money to buy more. Never true 02/18/2025 Within the past 12 months th e food we bought just didn t last and we didn t have money to get more. Not on file 02/18/2025 Living Situation Answer Date Recorded What is your living situation? 0 02/18/2025 Comments No Sex and Gender Information Value Date Recorded Sex Assigned at Not on file Legal Sex Female 5:04 AM EST Gender Identity Not on file Sexual Orientation Not on file Obstetrics History Last Filed Vital Signs Vital Sign Reading Time Taken Comments Blood Pressure 104/70 09/07/2024 12:58 PM EDT Pulse 78 09/07/2024 12:58 PM EDT Temperature 36.4 C (97.6 F) 09/07/2024 12:58 PM EDT Respiratory Rate 14 09/07/2024 12:58 PM EDT Oxygen Saturation 96% 09/07/2024 12:58 PM EDT Inhaled Oxygen Concentration - - Weight 118 kg (260 lb) 09/07/2024 12:58 PM EDT Height 168.9 cm (5' 6.5 ) 09/07/2024 12:58 PM ED T Body Mass Index 41.34 09/07/2024 12:58 PM EDT Plan of Treatment Upcoming Encounters Date Type Department Care Team (Late st Contact Info) Description 05/17/2025 9:00 AM EST Office Visit Adult Medicine [address] [phone] Dallas Hernandez MD [address] [place] [address] 05/17/2025 1:00 PM EST Office Visit [address] [place] [address] Libertad Danielle MD [facility] [address] Health Maintenance Due Date Last Done Comments Pneumococcal Vaccine: Pediatrics (0 to 5 Years) and At-Risk Patients (6 to 49 Years) (2 of 2 - PCV) 07/18/2018 07/18/2017 COVID-19 Vaccine ( - season) 2024 05/01/2021, 08/07/2020, 07/10/2020 Depression Screening 06/27/2024 Influenza Vaccine (#1) 2025 , 06/14/2022, 04/21/2021, Additional history exists Cervical Cancer Screening: HPV 11/17/2025 11/17/2020 Social Influencers of Health Screening 02/18/2026 02/18/2025 Cholesterol Screening (Lipid Panel) 03/02/2029 03/02/2024, 03/02/2024, 03/02/2024 DTaP,Tdap,and Td Vaccines (11 - Td or Tdap) 03/02/2034 03/02/2024, 03/10/2021, 08/15/2012, Additional history exists HIB Vaccines Completed 04/30/1991, 08/25, 1990 IPV Vaccines Completed 12/14/1994, 07/28, 1990, Additional history exists MMR Vaccines Completed 12/14/1994, 04/30/1991 HPV Vaccines Completed 06/07/2008, 12/26, 11/13/2007 Hepatitis B Vaccines Completed 09/19/2012, 08/15/2012, 05/02/2002, Additional history exists Meningococcal ACWY Vaccine Completed 09/19/2012, Varicella Vaccines Aged Out 03/23/2016, 08/22/2012 No longer eligible based on patient's age to complete this topic HIV Screening Completed 11/05/2020 Hepatitis C Screening Completed 11/05/2020 Hepatitis A Vaccines Aged Out No long er eligible based on patient's age to complete this topic Meningococcal B Vaccine Aged Out No l onger eligible based on patient's age to complete this topic RSV Immunization Patients Under 20 months Aged Out No longer eligible based on patient's age to complete this topic Procedures Procedure Name Priority Date/Time Associated Diagnosis Comments LIPID PANEL Routine 03/02/2024 HPV Routine 11/17/2020 HEPATITIS C SCREENING Routine 11/05/2020 HIV SCREENING Routine 11/05/2020 from Last 3 Months or Most Recently Relevant to Health Maintenance Results * (ABNORMAL) Lipid panel (03/02/2024) Pathologist [facility] LDL/HDL Ratio 6(A) 0 - 4 Triglycerides 669(A) 0 - 150 mg/dL Cholesterol 190 0 - 200 mg/dL HDL 32(A) >=40 mg/dL Blood Venous blood specimen / Unknown [facility] Provider LAB BLOOD ORDERABLES Skylar l Result * Cervical Cancer Screening: HPV (11/17/2020) Pathologist [facility] Cervical Cancer Screening: HPV Abstracted, Negative [facility] Provider HEALTH MAINTENANCE Final Result * HIV Screening (11/05/2020) Pathologist [facility] HIV Screening Abstracted [facility] Provider HEALTH MAINTENANCE Final Result * Hepatitis C Screening (11/05/2020) Pathologist [facility] Hepatitis C Screening Abstracted [facility] Provider HEALTH MAINTENANCE Final Result from Last 3 Months or Most Recently Relevant [place] [id number] [facility] Advance Directives Documents on File Type Date Recorded Patient Advertising Internship Expl anation Health Care Decision (hx) 12/30/2020 NOÉ BRIAN DIRECTIVE Care Teams Pump Mechanic Relationship Specialty Start Date End Date Dallas Hernandez MD [address] [place] [phone] PCP - General 11/26/09
[2025-02-23 22:24] LABS: MANUAL DIFF FLAG NO
[2025-02-23 22:25] LABS: Hematocrit 33.1 % (37.0-47.0); Hemoglobin 10.7 g/dl (12.0-16.0); Imm Gran Abs Auto 0.08 X10*3/uL (0.00-0.03); Imm Gran Pct Auto 1.0 % (0.0-0.4); Lymphocytes Absolute Auto 2.5 X10*3/uL (1.2-4.9); Mean Corpuscular HGB Conc 32.3 g/dl (31.0-35.0); Mean Corpuscular Hemoglobin 24.7 pg (27.0-33.0); Mean Corpuscular Volume 76.4 fL (80.0-98.0); NRBC Abs Auto 0.000 X10*3/uL (0.0-0.012); NRBC Pct Auto 0.0 /100WBC (0.0-0.2); Platelet Count 343 X10*3/uL (160-400); Red Blood Count 4.33 X10*6/uL (4.20-5.50); White Blood Count 7.9 X10*3/uL (4.8-10.8)
[2025-02-23 22:31] LABS: INTERNATIONAL NORM RATIO 1.0 (0.9-1.1); Prothrombin Time 11.3 SEC (10.9-12.4)
[2025-02-23 22:41] LABS: Alanine Aminotransferase 34 U/L (0-31); Albumin Level 3.8 g/dL (3.5-5.0); Alkaline Phosphatase 133 U/L (39-117); Anion Gap 16 (12-20); Aspartate Amino Transferase 34 U/L (5-31); Blood Urea Nitrogen 11 mg/dL (9-16); Calcium 8.5 mg/dL (8.4-10.2); Carbon Dioxide 21 mmol/L (22-29); Chloride 108 mmol/L (96-108); Creatinine Clr Calc Pharmacy 137.8; Estimated Glomerular Filt Rate > 60; Magnesium 2.0 mg/dL (1.6-2.6); Potassium 3.7 mmol/L (3.3-5.1); Sodium 141 mmol/L (135-145); Total Protein 7.5 g/dL (6.5-8.0)
[2025-02-23 22:49] LABS: Troponin-I High Sensitivity < 2.7 ng/L (<3.5-17.0)
--- NOTE | 2025-02-23 23:20 | ED_ITS ---
HPI - General Adult General Chief complaint: Extremity Problem Stated complaint: calf pain chest pressure post op 02/14 Time Seen by Provider: 02/23/25 23:08 Source: patient Mode of arrival: ambulatory Limitations: no limitations History of Present Illness ED Provider: Dr. Godwin [facility] narrative: This is a 35-year-old female recent fiber remove the surgery on the presented hospital today for evaluation of bilateral lower pressure cramping and chest pressure and shortness of breath that worsened when she lays down flat. Patient has noticed that her bilateral extremity appears to be swollen and have some calf tenderness more so on the right side. Patient is complaining of shortness of breath when she falls asleep. And then when she wakes up. Related Data Home Medications ?Medication ?Instructions ?Recorded ?Confirmed albuterol sulfate 2.5 mg/3 mL 2.5 mg inhalation Q4H NE N wheezing 12/01/22 09/20/23 (0.083 %) solution for nebulization albuterol sulfate 90 mcg/actuation 2 puff inhalation Q 4H PRN wheezing 12/01/22 09/20/23 aerosol inhaler (Ventolin HFA) budesonide-formoterol HFA 160 2 puff inhalation BID 09/20/23 mcg-4.5 mcg/actuation aerosol inhaler leuprolide 3.75 mg intramuscular 3.75 mg IM Q4W 09/20/23 syringe kit (Lupron Depot) rizatriptan 10 mg tablet mg PO 10/24/23 Previous Rx's ?Medication ?Instructions ?Recorded ondansetron 4 mg disintegrating 4 mg PO Q8H PRN nausea and 04/13/23 tablet vomiting #20 tabs tramadol 50 mg tablet 50 mg PO TID PRN pain #10 ta bs 04/13/23 cyclobenzaprine 5 mg tablet 5 mg PO TID PRN muscle spa sm #10 12/06/24 tabs omeprazole 40 mg capsule,delayed 40 mg PO BID #180 cap s 02/18/25 release Allergies Allergy/AdvReac Type Severity Reaction Status Date / Time hydromorphone (From Dilaudid) Allergy Mild facial/hand Verified 02/23/25 21:49 numbness latex (Latex) Allergy Unknown UNKNOWN Verified 02/23/25 21:49 Review of Systems 2 Review of Systems: Pertinent review of systems as mentioned in HPI. All other system otherwise negative. [facility] Past Medical History [facility] Narrative: Medical history as mentioned in HPI Medical History Arthritis Asthma Fibroid Anemia Surgical History Hx of colonoscopy Hx of ankle fusion History of ovarian cystectomy Hx of section History of esophagogastroduodenoscopy (EGD) Social History Social History Alcohol intake: never Patient Tobacco Use Status: Never used Tobacco Smoked in Last 30 Days: No Use of substances other than those prescribed or required for medical reasons: No Advance Directives: Yes Advance Directives on File: Yes Advance Directives Date on File: 12/01/22 Do you have a plan to hurt others: No Plan Patient : No service: No Current occupational status: employed Physical Exam ED Exam Exam: General: Pleasant, no distress, interacting appropriately Head: Normacephalic, atraumatic ENT: oral mucosa moist, neck supple, no tracheal deviation Cardiovascular: regular rate, regular rhythm, no murmurs, rubbing, gallops Respiratory: CTAB, no wheeze, rales, rhonchi Extremities: Right-sided calf tenderness on palpation, pulse intact bilateral lower extremity Skin: Warm and dry Psychiatric: Appropriate mood and thoughts Vital Signs: Vital Signs - 24 hr 02/23/25 21:42 Temperature 98.5 F Pulse Rate 74 Respiratory Rate 16 Blood Pressure 120/62 Pulse Oximetry 95 Oxygen Delivery Method Room Air BMI result Body Mass Index 41.5 Medications Administered Discontinued Medications Generic Name Dose Route Start Last Admin Trade Name Freq PRN Reason Stop Dose Admin Iohexol 75 ml 02/24/25 00:21 02/24/25 00:27 Iohexol 350 Mg/Ml 100 Ml Infus..Btl IV 02/24/25 00:22 75 ml ONCE ONE Administration Medical Decision Making Medical Decision Making [facility] Narrative: This is a 35-year-old female presented hospital today for evaluation of right- sided calf pain shortness of breath and chest pressure when she lays down. Given patient's recent surgery procedure we will repetitively a CTA of the chest to rule out PE. I did perform a bedside ultrasound of the patient's right lower extremity. I do not appreciate any signs of DVT on exam. Patient's lab work did show slight anemia at 10.7, patient chemistries unremarkable, patient troponin is not elevated. CTA of the chest did not show any signs of PE. The patient appears to be well does not appear to be in acute respiratory distress at this time. We will plan to discharge patient at this time. We will have her follow up with her primary care doctor. Return precautions provided. Patient agrees and understands this plan. Differential Diagnosis Differential Diagnoses: The differential diagnosis associated with the presentation includes PE, ACS, DVT Lab Data MDM Lab Attestation statement: I reviewed the patient's lab results. 02/23/25 22:14 02/23/25 22:14 Labs: Lab Results 02/23/25 Range/Units 22:14 WBC 7.9 (4.8-10.8) X10*3/uL RBC 4.33 D (4.20-5.50) X10*6/uL Hgb 10.7 L (12.0-16.0) g/dl Hct 33.1 L (37.0-47.0) % MCV 76.4 L (80.0-98.0) fL MCH 24.7 L (27.0-33.0) pg MCHC 32.3 (31.0-35.0) g/dl RDW 14.8 (11.0-16.0) % Plt Count 343 D (160-400) X10*3/uL MPV 10.0 (9.4-12.3) fL Immature Gran % (Auto) 1.0 H (0.0-0.4) % Neut % (Auto) 53.1 (45-73) % Lymph % (Auto) 32.0 (20-40) % Garza % (Auto) 6.0 (2-11) % Eos % (Auto) 7.4 H (0-4) % Baso % (Auto) 0.5 (0-2) % Lymph # (Auto) 2.5 (1.2-4.9) X10*3/uL Garza # (Auto) 0.5 (0.1-1.2) X10*3/uL Eos # (Auto) 0.6 H (0.0-0.4) X10*3/uL Baso # (Auto) 0.0 (0.0-0.2) X10*3/uL Abs Immat Gran (auto) 0.08 H (0.00-0.03) X10*3/uL Absolute Neuts (auto) 4.2 (2.0-8.3) x10*3/uL Absolute Nucleated RBC 0.000 (0.0-0.012) X10*3/uL Nucleated RBC % (auto) 0.0 (0.0-0.2) /100WBC PT 11.3 (10.9-12.4) SEC INR 1.0 (0.9-1.1) Sodium 141 (135-145) mmol/L Potassium 3.7 (3.3-5.1) mmol/L Chloride 108 (96-108) mmol/L Carbon Dioxide 21 L (22-29) mmol/L Anion Gap 16 (12-20) BUN 11 (9-16) mg/dL Creatinine 0.74 (0.5-1.4) mg/dL Estim Creat Clear Calc 137.8 Estimated GFR > 60 Random Glucose 119 H (60-115) mg/dL Calcium 8.5 (8.4-10.2) mg/dL Magnesium 2.0 (1.6-2.6) mg/dL Total Bilirubin 0.1 (0.0-1.0) mg/dL AST 34 H (5-31) U/L ALT 34 H (0-31) U/L Alkaline Phosphatase 133 H (39-117) U/L Troponin I High Sens < 2.7 (<3.5-17.0) ng/L Total Protein 7.5 (6.5-8.0) g/dL Albumin 3.8 (3.5-5.0) g/dL Independent Interpretation I performed an independent interpretation of an: EKG, Plain X-Ray and CT Scan Radiology Impression Discussion of test interpretation with radiology: I have reviewed the radiologist's reading. Discharge Plan Discharge Clinical Impression: Atypical chest pain Patient Disposition: Home, Self-Care Additional Instructions: EKG and troponin did not show any sign of heart ischemia. Your CT imaging of the chest did not show any signs of pulmonary embolism. Please follow up with your primary care doctor. IF anything changes or worsens. Return to the ED. Prescriptions: No Action omeprazole 40 mg capsule,delayed release(DR/EC) 40 mg PO BID Qty: 180 1RF cyclobenzaprine 5 mg tablet 5 mg PO TID PRN (Reason: muscle spasm) Qty: 10 0RF albuterol sulfate 2.5 mg /3 mL (0.083 %) solution for nebulization 2.5 mg inhalation Q4H PRN (Reason: wheezing) albuterol sulfate [Ventolin HFA] 90 mcg/actuation HFA aerosol inhaler 2 puff inhalation Q4H PRN (Reason: wheezing) ondansetron 4 mg tablet,disintegrating 4 mg PO Q8H PRN (Reason: nausea and vomiting) Qty: 20 0RF rizatriptan 10 mg tablet PO Lupron Depot 3.75 mg syringe kit 3.75 mg IM Q4W budesonide-formoterol 160-4.5 mcg/actuation HFA aerosol inhaler 2 puff inhalation BID tramadol 50 mg tablet 50 mg PO TID PRN (Reason: pain) Qty: 10 0RF Print Language: Korean
[2025-02-24] MEDS: iohexoL 350 MG/ML 100 ML INFUS..BTL 75 ML IV (00:27)
[2025-02-24 01:29] VITALS: BP 92/60; PULSE 63; RESP 16; TEMP 36.9; O2SAT 98
== END 2025-02-24 01:38 | disposition home or self-care (01) ==
PROVIDERS: Emergency Provider Student in an Organized Health Care Education/Training Program; PCP Internal Medicine
DX: R07.89 Other chest pain (principal); R06.02 Shortness of breath; R60.0 Localized edema; Z79.899 Other long term (current) drug therapy
CPT/HCPCS: 36415; 71045; 71275; 80053; 83735; 84484; 85025; 85610; 93005; 99284; 99285; Q9967

== ENCOUNTER → 2025-02-23 21:39 | Outpatient (BNV) | payer OTHER, SELFPAY | PROVIDERS: Emergency Provider Student in an Organized Health Care Education/Training Program; PCP Internal Medicine; Visit Provider Internal Medicine | DX: R07.9 Chest pain, unspecified (principal) | CPT/HCPCS: 93010 ==

== ENCOUNTER → 2025-02-24 | Outpatient (BNV) | payer OTHER, SELFPAY | PROVIDERS: Emergency Provider Student in an Organized Health Care Education/Training Program; PCP Internal Medicine; Visit Provider Specialist | DX: R06.02 Shortness of breath (principal) | CPT/HCPCS: 71275 ==

== ENCOUNTER 2025-04-02 10:40 | Outpatient (AMB) | payer OTHER, SELFPAY ==
--- NOTE | 2025-04-02 11:34 | AM.OFFWIN_ITS ---
Intake Vital Signs 04/02/25 11:40 Height 5 ft 6 in Weight 250 lb BMI 40.3 BP 96/70 Blood Pressure Location Lt brachial Position Sitting Pulse 86 Pulse Source Pulse Oximeter Temp 98.3 F Temp Source Oral Pulse Oximetry (%) 98 Oxygen Delivery Method Room Air Intake Visit Reasons: EP Sore throat Intake Note: Pt is here today c/o sore throat Patient Tobacco Use Status: Never used Tobacco Allergies hydromorphone (From Dilaudid) Allergy (Mild, Verified 04/02/25 11:42) facial/hand numbness latex (Latex) Allergy (Unknown, Verified 04/02/25 11:42) UNKNOWN Do you need a note to return to daycare/school/sports/work: No HPI HPI Comments History of Present Illness Details History of Present Illness - The patient is a 35-year-old female pr esenting with a sore throat and associated symptoms. - The sore throat began on Tuesday night and was accompanied by fever and chills. - The patient experienced arthralgia, sp ecifically knee pain, during this period. - A COVID-19 test was performed and retu rned negative results. - The patient experienced a headache yes terday. - The patient has not been able to eat d ue to the sore throat. - She has been taking tylenol for her fe joce. - She started with a cough this am but i t was dry. - She denies abd pain, n/v/d, CP, or SOB . Physical Exam General: Cooperative, healthy appearing, comfortable, no acute distress and well developed Orientation: Patient oriented x3 Limitations: No limitations Head: Normal to inspection Ears: Hearing grossly normal bilaterally Nose: Normal external nose present Face and sinus: Normal facial exam Pharynx: Uvula is midline. Oropharynx is erythematous with no exudates. Moist mucosa is noted. Tongue is midline. Neck: Normal visual inspection and Yes full ROM. No lymphadenopathy noted. Respiratory: Normal respiratory effort and able to speak in complete sentences. Clear to auscultation bilaterally. No w/r/r noted. Cardiovascular: Regular rate and rhythm. Normal S1 and S2. No m/r/g noted. Skin: No rashes or lesions noted Patient was informed and verbally consented to the use of an ambient scribe for clinic note documentation during this visit. [facility] Medical History Arthritis Asthma Fibroid Anemia Surgical History Hx of colonoscopy Hx of ankle fusion History of ovarian cystectomy Hx of section History of esophagogastroduodenoscopy (EGD) Social History Alcohol intake: never Patient Tobacco Use Status: Never used Tobacco Advance Directives Date on File: 12/01/22 service: No Current occupational status: employed Review of Systems Const All systems reviewed & are unremarkable except as noted in HPI and below Physical Exam Vital Signs: Last Vital Signs Temp 98.3 F 04/02/25 11:40 Pulse 86 04/02/25 11:40 BP 96/70 04/02/25 11:40 Pulse Ox 98 04/02/25 11:40 Oxygen Delivery Method Room Air 04/02/25 11:40 BMI result Body Mass Index 40.3 Results AMB Rapid Strep AMB Rapid Strep Positive Last Edit by Smiley Bullard CMA on 04/02/25 12:09 Results Reviewed Results Reviewed: Laboratory Last Values Strep Scn Rapid Clinic Positive 04/02/25 12:08 Assessment & Plan Assessment & Plan (1) Strep sore throat: Code(s): J02.0 - Streptococcal pharyngitis Plan Most likely strep vs viral rapid is positive in the office plan - salt water gargles - tylenol or motrin as needed for pain or fever - diet as tolerated - Prescribed antibiotics for 10 days. - follow up with PCP Orders: Orders AMB Rapid Strep Screen Today Z13.9 - Encounter for screening, unspecified Medications: New penicillin V potassium 500 mg PO BID 20 tabs 0RF 10 days Coding Level of Care Code Est Pt Level 3 (77077) Diagnoses Strep sore throat J02.0
[2025-04-02 11:40] VITALS: BP 96/70; PULSE 86; TEMP 36.8; O2SAT 98; BMI 40.3
--- OUTSIDE RECORDS SUMMARY | 2025-04-02 12:57 | XMS_ITS | Clinical Summary ---
Author Organization [employer] Address [address] [facility] [address] [place] [address] Care Team Providers Care Tie Buyer Name Role Phone Unavailable Primary Care Provider [...] 07/18/2017 Cervical Cancer Screening 02/02/2020 HPV/Cotest 02/02/2020 Dental X-Ray: Bitewings 02/07/2025 02/07/20, 01/11/2024, 02/17/2023, Additional history exists Dental Oral Exam 02/12/2025 08/14/2024, , 02/17/2023, Additional history exists Dental Prophylaxis 02/12/2025 08/14/2024, 0 02/07/2024, 02/17/2023, Additional history exists COVID-19 Vaccine (2024- season) 2025 05/01/2021, 08/07/2020, 07/10/2020 Influenza Vaccine (#1) 2025 , 06/14/2022, 04/21/2021, [...] Most Recently Relevant to Health Maintenance Insurance [facility] MEDICA[facility] STAND ADULT
--- OUTSIDE RECORDS SUMMARY | 2025-04-02 12:57 | XMS_ITS | Clinical Summary ---
Author Organization [facility] Address [address] [place] [address] Phone Care Team Providers Care Document Scanner Name Role Phone Unavailable Primary Care Provider [...] Alive Mother: Asthma Other 1 grandma: Sudden /SD under age 55 Other 2 grandfather: Di [...] (1 of 2 - 13+ 2-dose series) 2003 Influenza Vaccines (#1) 2025 04/21/2021, 05/01 COVID-19 Vaccine (2 - 2024- season) 2025 05/01/2021 DTaP,Tdap,and Td Vaccines (8 - Td or [...]
--- OUTSIDE RECORDS SUMMARY | 2025-04-02 12:57 | XMS_ITS | Encounter Summary ---
Author Organization [facility] Address [address] [place] [address] Phone Care Team Providers Care Electronics Installer Name Role Phone Lupe Plummer MD Primary Care Provider Encounter Details Date Type Department Care Team (Late st Contact Info) Description 02/10/2017 Conversion Encounter [facility] [place] [address] [place], [place] [phone] Social History Tobacco Use Types Packs/Day Years [...] on filedocumented in this encounter Care Teams Electronics Installer Relationship Specialty Start Date End Date Lupe Plummer MD [address] [place] [address] PCP - General 02/04/17 12/09/22 documented as of this encounter
--- OUTSIDE RECORDS SUMMARY | 2025-04-02 12:57 | XMS_ITS | Clinical Summary ---
Author Organization [facility] Address [address] [place] [address] Care Team Providers Care Impregnation Operator Name Role Phone Dallas Hernandez MD Primary Care Provider [phone] Allergies Active Allergy Reactions Criticality Noted Date [...] Advance Directives For more information, please contact: [phone] Documents on File Type Date Recorded Patient Roller Skater Expl anation Advance Directive and Living Will 12/30/2020 PRIVACY DISCLOSURE Care Teams Impregnation Operator Relationship Specialty Start Date End Date Dallas Hernandez MD PCP - General Internal Medicine 12/30/20
--- OUTSIDE RECORDS SUMMARY | 2025-04-02 12:57 | XMS_ITS | Encounter Summary ---
Author Organization [facility] Address [address] [facility] [address] [place] [address] Care Team Providers Care Protein Specialist Name Role Phone Unavailable Primary Care Provider [...]
--- OUTSIDE RECORDS SUMMARY | 2025-04-02 12:57 | XMS_ITS | Clinical Summary ---
Author Organization [address] [facility] Address [address] [place] [address] Phone Care Team Providers Care Cupola Operator Name Role Phone Dallas Hernandez MD Primary Care Provider [phone] Allergies Active Allergy Reactions Criticality Noted Date [...] 2 hours if needed 03/02/20 24 Active fenofibrate (TRICOR) 145 mg tablet Take 1 tablet (145 mg total) by mouth 1 (one) time each day. 90 tablet 2 09/08/19 25 Active montelukast (SINGULAIR) 10 mg tablet Take 1 tablet (10 mg total) by mouth at bedtime. at bedtime. 90 tablet 2 09/08/19 25 Active fluticasone propionate (FLONASE) 50 mcg/actuation nasal spray INSTILL 1 SPRAY INTO EACH NOSTRIL 1 TIME PER DAY. SHAKE GENTLY. AFTER USE, CLEAN TIP AND REPLACE CAP 32 mL 1 02/19/20 25 Active Symbicort 160-4.5 mcg/actuation inhaler INHALE 2 PUFFS BY MOUTH 2 TIMES A DAY. RINSE MOUTH WITH WATER AFTER USE TO REDUCE AFTERTASTE AND INCIDENCE OF CANDIDIASIS. DO NOT SWALLOW. 10.2 each 2 04/01/20 25 Active Ventolin HFA 90 mcg/actuation inhalerIndicatio ns:Severe persistent asthma without complication ([facility] V28) INHALE 2 PUFFS BY MOUTH EVERY 6 HOURS NEEDED FOR WHEEZE 18 each 2 04/01/20 25 Active budesonide-formo teroL (SYMBICORT) 160-4.5 mcg/actuation inhaler Inhale 2 puffs by mouth 2 (two) times a day. Rinse mouth with water after use to reduce aftertaste and incidence of candidiasis. Do not swallow. 1 each 2 09/08/19 25 025 Discontinued Ventolin HFA 90 mcg/actuation inhalerIndicatio ns:Severe persistent asthma without complication ([facility] V28) INHALE 2 PUFFS BY MOUTH EVERY 6 HOURS NEEDED FOR WHEEZE 18 each 2 12/19/19 25 025 Discontinued Active Problems Problem Noted [...] pedinculated Severe persistent asthma without complication ([facility] V28) 11/06/2019 Overview (05/11/2024): Last Assessment & [...] to tolerate PO iron. Has seen hematology ([facility]): 12/30/20:Pending repeat labs may need Iron infusion. Last Assessment & Plan: I referred her to Hematology for consideration of iron infusions. Immunizations Immunization Administration Dates Next Due Hepatitis B (Ovkwqyt-B-Vwakl , Recombivax HB-Adult) 19yo and older 09/19/2012,08/15/2012 [...] UMBILICAL HERNIA UPPER GASTROINTESTINAL ENDOSCOPY 07/25/2019 PROCEDURE: GA UPPER GI ENDOSCOPY PERFORMED; COMMENT: Minimal antral erosive gastritis; gastric and esophageal biopsies obtained. Pathology: Eosinophilic esophagitis and gastritis. No Helicobacter pylori. ANKLE SURGERY 07/06/2017 Left PROCEDURE: HISTORICAL ANKLE SURGERY; COMMENT: arthroscopy and hardware removal FOOT SURGERY 03/05/2015 Left PROCEDURE: HISTORICAL FOOT SURGERY; COMMENT: subtalar fusion revision,bone graft & hardware removal; 08/29/2013 triple arthrodesis, ankle tendo-Achilles lengthening OVARIAN CYST REMOVAL PROCEDURE: GA OVARIAN CYSTECTOMY UNI/BI; COMMENT: laprascopic surgery 4-5yrs [...] months, s/p release at 1 yr old; [facility] Prurigo nodularis 06/01/2019 DX:Prurigo nod ularis Moderate [...] Date Recorded What is your living situation? Unrecognized valu e 02/18/2025 Comments No Sex and Gender Information [...] 9:00 AM EST Office Visit Adult Medicine [address] [address] Dallas Hernandez MD [address] [place] [address] 05/17/2025 1:00 PM EST Office Visit Pulmonology - [place] [address] [facility] [address] [place] [id number] Libertad Danielle MD [address] [facility] [address] [place] [address] Health Maintenance Due Date Last Done Comments Pneumococcal Vaccine: Pediatrics (0 to 5 Years) and At-Risk Patients (6 to 49 Years) (2 of 2 - PCV) 07/18/2018 07/18/2017 Depression Screening 06/27/2024 COVID-19 Vaccine ( - season) 2025 05/01/2021, 08/07/2020, 07/10/2020 Influenza Vaccine (#1) 2025 , 06/14/2022, 04/21/2021, Additional history exists Cervical Cancer Screening: HPV 11/17/2025 11/17/2020 Social Influencers of Health Screening 02/18/2026 02/18/2025 Cholesterol Screening (Lipid Panel) 03/02/2029 03/02/2024, 03/02/2024, 03/02/2024 DTaP,Tdap,and Td Vaccines (11 - Td or Tdap) 03/02/2034 03/02/2024, 03/10/2021, 08/15/2012, Additional history exists RSV Immunization Adult Patients (1 - 1-dose 75+ series) 2065 HIB [...] Maintenance Results * (ABNORMAL) Lipid panel (03/02/2024) [facility] LDL/HDL Ratio 6(A) 0 - 4 Triglycerides 669(A) 0 - 150 mg/dL Cholesterol 190 0 - 200 mg/dL HDL 32(A) >=40 mg/dL Blood Venous blood specimen / Unknown Historical Provider LAB BLOOD ORDERABLES Skylar l Result * Cervical Cancer Screening: HPV (11/17/2020) [facility] Cervical Cancer Screening: HPV Abstracted, Negative Historical Provider HEALTH MAINTENANCE Final Result * HIV Screening (11/05/2020) [facility] HIV Screening Abstracted Historical Provider HEALTH MAINTENANCE Final Result * Hepatitis C Screening (11/05/2020) [facility] Hepatitis C Screening Abstracted Historical Provider HEALTH MAINTENANCE Final Result from Last 3 Months or Most Recently Relevant to Health Maintenance Insurance [facility] [place] [address] Advance Directives Documents on File Type Date Recorded Patient Hand Tire Trimmer Expl [facility] Health Care Decision (hx) 12/30/2020 NOÉ BRIAN DIRECTIVE Care Teams Cupola Operator Relationship Specialty Start Date End Date Dallas Hernandez MD [address] [place] [id number] PCP - General 11/26/09
--- OUTSIDE RECORDS SUMMARY | 2025-04-02 12:57 | XMS_ITS | Encounter Summary ---
Author Organization [employer] [facility] Address [address] [facility] [address] [place] [address] Care Team Providers Care Aircraft Electrician Name Role Phone Unavailable Primary Care Provider [...]
--- OUTSIDE RECORDS SUMMARY | 2025-04-02 12:57 | XMS_ITS | Encounter Summary ---
Author Organization [facility] Address [address] [place] [phone] Phone Care Team Providers Care Maintenance Service Supervisor Name Role Phone Lupe Plummer MD Primary Care Provider [phone] Encounter Details Date Type Department Care Team (Late st Contact Info) Description 12/17/2010 Documentation EM Family Medicine [address] [place] [address] Family Medicine, Physician [address] [place], [place] [phone] Social History Tobacco Use Types Packs/Day Years [...] on filedocumented in this encounter Care Teams Maintenance Service Supervisor Relationship Specialty Start Date End Date Lupe Plummer MD [address] [place] [address] [place] [address] PCP - General 02/04/17 12/09/22 documented as of this encounter
== END 2025-04-02 12:20 | disposition home or self-care (01) ==
PROVIDERS: PCP Internal Medicine; Visit Provider Physician Assistant Medical
DX: J02.0 Streptococcal pharyngitis (principal); Z13.9 Encounter for screening, unspecified

== ENCOUNTER → 2025-04-02 10:40 | Outpatient (BNVA) | payer OTHER, SELFPAY | PROVIDERS: PCP Internal Medicine; Visit Provider Physician Assistant Medical | DX: J02.0 Streptococcal pharyngitis (principal) | CPT/HCPCS: 87880; 99212 ==

== ENCOUNTER 2025-04-26 12:17 | Outpatient (AMB) | payer OTHER, SELFPAY ==
--- OUTSIDE RECORDS SUMMARY | 2025-04-21 23:59 | XMS_ITS | Continuity of Care Document ---
Author Organization [facility] Jacy nWARSTUFFs [facility] Address [address], [address] [place] [address]- Care Team Providers Care Call Center Manager Name Role Phone David LUNDBERG MD, [place] Goss Primary Care Physician En[place] [facility] [place](s): 03/22/25 - 04/21/25 [facility] Atul TheoWARSTUFFs [facility] [address] [place], [place] [address] Encounter Type: Triage Allergies, Adverse Reactions, Alerts Substance Criticality Severity Reaction Reaction Severity Status ibuprofen gastritis Active Latex Skin rash Active Dilaudid 1 Pressure Active 1pt feels pressure in her face Immunizations Given and Recorded Vaccine Date Status Refusal Reason influenza virus vaccine, inactivated 03/02/24 Bhupinder rded influenza virus vaccine, inactivated 06/14/22 Bhupinder rded influenza virus vaccine, inactivated 04/21/21 Give n influenza virus vaccine, inactivated 06/25/20 Bhupinder rded influenza virus vaccine, inactivated 06/13/19 Bhupinder rded influenza virus vaccine, inactivated 08/15/18 Bhupinder rded influenza virus vaccine, inactivated 03/25/16 Bhupinder rded influenza virus vaccine, inactivated 06/10/15 Bhupinder rded influenza virus vaccine, inactivated 03/26/13 Bhupinder rded influenza virus vaccine, inactivated 03/15/12 Bhupinder rded influenza virus vaccine, inactivated 03/26/11 Bhupinder rded influenza virus vaccine, inactivated 03/18/10 Bhupinder rded tetanus/diphtheria/pertussis, acel(Tdap) 03/02/24 Recorded tetanus/diphtheria/pertussis, acel(Tdap) 03/10/21 Given tetanus/diphtheria/pertussis, acel(Tdap) 08/15/12 Recorded SARS-CoV-2 (COVID-19) mRNA BNT-162b2 vac 05/01/21 Given SARS-CoV-2 (COVID-19) mRNA BNT-162b2 vac 06/2020 Recorded SARS-CoV-2 (COVID-19) mRNA-1273 vaccine 08/2020 R ecorded SARS-CoV-2 (COVID-19) mRNA-1273 vaccine 08/07/20 R ecorded SARS-CoV-2 (COVID-19) mRNA-1273 vaccine 07/10/20 R ecorded pneumococcal 23-valent vaccine 07/18/17 Recorded Varicella Virus Vaccine 03/23/16 Recorded Varicella Virus Vaccine 08/22/12 Recorded Meningococcal Conjugate Vaccine 09/19/12 Recorded hepatitis B adult vaccine 09/19/12 Recorded hepatitis B adult vaccine 08/15/12 Recorded Medications albuterol CFC free 90 mcg/inh inhalation aerosol 2, puffs, Inhalation, Every 4 hours, PRN, or cough, # 1 each, Refills 0, Tot. Refills 0, Maintenance, 06/03/22 7:05:00 PM EST, Route to Pharmacy Electronically, [id number], [facility]/pharmacy #[id number], 168, cm, 04/19/22 15:05:00 EDT, Height, 104.5, kg, 05/04/21 11:42:00 EST, Dry Weight Start Date: 06/03/22 Stop Date: 07/03/22 Status: Ordered Medication Dispense Status: Completed Quantity: 1.0 Unit: each Total Allowed Fills: 1 Fills Dispensed: 0 budesonide-formoterol 160 mcg-4.5 mcg/inh inhalation aerosol with adapter Refills 0, Maintenance, 02/09/24 7:06:00 AM EDT Start Date: 02/09/24 Status: Ordered Medication Dispense Status: Completed Total Allowed Fills: 1 Fills Dispensed: 0 ibuprofen 200 mg oral capsule 3 capsule = 600 mg, By Mouth, Every 6 hours, PRN for pain, # 90 capsule, 0 Refills, Maintenance, 02/16/25 10:54:00 AM EDT, Capsule, [id number], Partial fill upon patient request if the prescription is for a schedule II opioid drug., 167, cm, 01/28/25 10:35:00 EDT, Height, 118.2, kg, 02/14/25 19:49:00 EDT, Dry Weight Start Date: 02/16/25 Status: Ordered Medication Dispense Status: Completed Quantity: 90.0 Unit: capsule Total Allowed Fills: 1 Fills Dispensed: 0 lidocaine 5% topical film 1 patch, Topically, Daily, remove patches after 12 hours, # 30 patch, 0 Refills, Maintenance, 02/16/25 10:55:00 AM EDT, Film, [facility]/pharmacy #[id number], Partial fill upon patient request if the prescription is for a schedule II opioid drug., 1 patch Topically Daily,Instr:remove patches after 12 hours, 167,cm, 01/28/25 10:35:00 EDT, Height, 118.2, kg, 02/14/25 19:49:00 EDT, Dry Weight Start Date: 02/16/25 Status: Ordered Medication Dispense Status: Completed Quantity: 30.0 Unit: patch Total Allowed Fills: 1 Fills Dispensed: 0 Lupron Depot 3.75 mg intramuscular kit = 3.75 mg, Intramuscular, Every 28 days, # 1 kit, 5 Refills, Maintenance, 03/08/25 3:37:00 PM EDT, [facility] [employer], 167, cm, 01/28/25 10:35:00 EDT, Height, 116.8, kg, 03/04/25 11:53:00 EDT, Dry Weight Start Date: 03/08/25 Status: Ordered Medication Dispense Status: Completed Quantity: 1.0 Unit: kit Total Allowed Fills: 6 Fills Dispensed: 0 omeprazole 40 mg oral enteric coated capsule 1 capsule = 40 mg, By Mouth, 2 times a day, 30 min before a meal, # 60 capsule, 0 Refills, Maintenance, 01/10/24 9:11:00 AM EDT, Partial fill upon patient request if the prescription is for a scheduleII opioid drug. Start Date: 01/10/24 Status: Ordered Medication Dispense Status: Completed Quantity: 60.0 Unit: capsule Total Allowed Fills: 1 Fills Dispensed: 0 oxyCODONE 5 mg oral tablet 5 mg, 1, tablet, By Mouth, Every 6 hours, PRN, # 20 tablet, Refills 0, Tot. Refills 0, Maintenance,for pain, 04/08/25 10:04:00 AM EDT, Route to Pharmacy Electronically, [facility]/pharm[facility] #[id number], Partial fill upon patient request if the prescription is for a schedule II opioid drug., 167, cm, 03/26/25 10:58:00 EDT, Height, 117, kg, 04/08/25 9:17:00 EDT, Dry Weight Start Date: 04/08/25 Status: Ordered Medication Dispense Status: Completed Quantity: 20.0 Unit: tablet Total Allowed Fills: 1 Fills Dispensed: 0 Rizatriptan By Mouth, Daily, 0 Refills, Maintenance, 04/19/22 3:05:00 PM EDT, Partial fill upon patient requestif the prescription is for a schedule II opioid drug. Start Date: 04/19/22 Status: Ordered Medication Dispense Status: Completed Total Allowed Fills: 1 Fills Dispensed: 0 simethicone 80 mg oral tablet, chewable 80 mg, Chew, 5 times a day, PRN, For Gaseous Distention/Discomfort, # 36 tablet, Refills 0, Tot. Refills 0, Maintenance, Other, 02/16/25 10:54:00 AM EDT, Route to Pharmacy Electronically, [facility]/pharmacy#[id number], Partial fill upon patient request if the prescription is for a schedule II opioid drug., 167, cm, 01/28/25 10:35:00 EDT, Height, 118.2, kg, 02/14/25 19:49:00 EDT, Dry Weight Start Date: 02/16/25 Status: Ordered Medication Dispense Status: Completed Quantity: 36.0 Unit: tablet Total Allowed Fills: 1 Fills Dispensed: 0 Tylenol Extra Strength 500 mg oral tablet 2 tablet = 1,000 mg, By Mouth, Every 6 hours, PRN as needed for pain, # 50 tablet, 0 Refills, Maintenance, 04/08/25 10:04:00 AM EDT, Tablet, [facility]/pharmacy #[id number], Partial fill upon patient request if the prescription is for a schedule II opioid drug., 167, cm, 03/26/25 10:58:00 EDT, Height, 117, kg, 04/08/25 9:17:00 EDT, Dry Weight Start Date: 04/08/25 Status: Ordered Medication Dispense Status: Completed Quantity: 50.0 Unit: tablet Total Allowed Fills: 1 Fills Dispensed: 0 Problem List Condition Confirmation Course Effective Dates Status H ealth Status Informant Asthma Confirmed Active Obesity (BMI 35.0-39.9 without comorbidity) Confirmed Active DJD (degenerative joint disease), ankle and foot Confirmed Active Endometriosis Confirmed Active Eosinophilic gastritis Confirmed Active Iron deficiency anemia Confirmed Active Migraine headache Confirmed Active Prurigo nodularis Confirmed Active Chronic seasonal allergic rhinitis Confirmed Active Severe obesity Confirmed Active Club foot of both feet Confirmed Active Fibroid uterus Confirmed Active Social History Social History Type Response Smoking Status Never (less than 100 in lifetime) entered on: 12/17/20 Sexual Orientation Self described orien tation: ; Straight or heterosexual Sex Sex Representation Female (finding) Patient Care team information Care Team Personnel Name: David LUNDBERG MD, [place] Goss Position: Reference Physician Member Role: PCP Address: [address] [place] [address] Telecom: Care Team Related Persons Name: LICO SEARS Name: GONSALO SEARS Name: RIDGE QUINONES Name: NAYELY WALDEN Insurance Providers Guarantor name: ALVIN WALDEN Health Plan Information #: 1 Payer: [employer] Payer Identifier: KAMILLA Member Number: [id number] Group Number: [id number] Subscriber Identifier: KAMILLA Relationship to Subscriber: self Coverage Type: NA Coverage Verification Date: NA Telecom: KAMILLA Address:
--- OUTSIDE RECORDS SUMMARY | 2025-04-21 23:59 | XMS_ITS | Continuity of Care Document ---
Author Organization [facility] Jacy nCollect[employer] Address [address], [address]t [place] [address]- Care Team Providers Care Tax Collection Coordinator Name Role Phone David LUNDBERG MD, [place] Goss Primary Care Physician [place] [facility] [place] Atul TheoCollective Intellect[facility] [address], 4th [address] [place], [place] [address] Encounter Type: Triage Allergies, Adverse [...] 7:05:00 PM EST, Route to Pharmacy Electronically, [id number], [facility]/pharmacy #[id number], 168, cm, 04/19/22 15:05:00 EDT, Height, [...] Refills, Maintenance, 02/16/25 10:55:00 AM EDT, Film, [facility]/pharmacy #[id number], Partial fill upon patient request if [...] 5 Refills, Maintenance, 03/08/25 3:37:00 PM EDT, [facility], 167, cm, 01/28/25 10:35:00 EDT, Height, 116.8, [...] 10:04:00 AM EDT, Route to Pharmacy Electronically, [facility]/pharmacy #[id number], Partial fill upon patient request if [...] 10:54:00 AM EDT, Route to Pharmacy Electronically, [facility]/pharmacy#[id number], Partial fill upon patient request if the [...] Refills, Maintenance, 04/08/25 10:04:00 AM EDT, Tablet, [facility]/pharmacy #[id number], Partial fill upon patient request if [...] Position: Reference Physician Member Role: PCP Address: [address] [place] [address] Telecom: Care Team Related Persons Name: LICO SEARS Name: GONSALO SEARS Name: RIDGE QUINONES Name: NAYEYL WALDEN Insurance Providers Guarantor name: ALVIN WALDEN Health Plan Information #: 1 Payer: [employer] Payer Identifier: KAMILLA Member Number: [id number] Group Number: [id number] Subscriber Identifier: KAMILLA Relationship to Subscriber: self Coverage Type: NA Coverage Verification Date: NA Telecom: KAMILLA Address:
--- OUTSIDE RECORDS SUMMARY | 2025-04-21 23:59 | XMS_ITS | Continuity of Care Document ---
Author Organization [facility] Address [address], [address] [place] [address]- Care Team Providers Care Supervisor Extrusion Name Role Phone David LUNDBERG MD, [place] Goss Primary Care Physician [place] [facility] [place]/22/25 - 04/21/25 [facility] [address], [address]th [address] [place], [place] [address] Encounter Type: Triage Allergies, Adverse Reactions, [...] 7:05:00 PM EST, Route to Pharmacy Electronically, [id number], [facility]/pharmacy #[id number], 168, cm, 04/19/22 15:05:00 EDT, Height, [...] Refills, Maintenance, 02/16/25 10:55:00 AM EDT, Film, [facility]/pharmacy #[id number], Partial fill upon patient request if [...] 5 Refills, Maintenance, 03/08/25 3:37:00 PM EDT, [facility] [employer], 167, cm, 01/28/25 10:35:00 EDT, Height, 116.8, [...] 10:04:00 AM EDT, Route to Pharmacy Electronically, [facility]/pharmacy #[id number], Partial fill upon patient request if [...] 10:54:00 AM EDT, Route to Pharmacy Electronically, [facility]/pharmacy#[id number], Partial fill upon patient request if the [...] Refills, Maintenance, 04/08/25 10:04:00 AM EDT, Tablet, [facility]/pharmacy #[id number], Partial fill upon patient request if [...] Position: Reference Physician Member Role: PCP Address: [address] [place] [address] Telecom: Care Team Related Persons Name: LICO SEARS Name: GONSALO SEARS Name: RIDGE QUINONES Name: NAYELY WALDEN Insurance Providers Guarantor name: ALVIN WALDEN Health Plan Information #: 1 Payer: [employer] Payer Identifier: KAMILLA Member Number: [id number] Group Number: [id number] Subscriber Identifier: KAMILLA Relationship to Subscriber: self Coverage Type: NA Coverage Verification Date: NA Telecom: KAMILLA Address:
[2025-04-26 12:40] VITALS: BP 102/74; PULSE 75; RESP 16; TEMP 36.9; O2SAT 97; BMI 41.0
--- NOTE | 2025-04-26 12:40 | MHC.OFFWIV ---
Intake Vital Signs 04/26/25 12:40 Height 5 ft 6 in Weight 254 lb BMI 41.0 BP 102/74 Blood Pressure Location Rt brachial Position Sitting Respiration 16 Pulse 75 Pulse Source Pulse Oximeter Temp 98.4 F Temp Source Oral Pulse Oximetry (%) 97 Oxygen Delivery Method Room Air Intake Visit Reasons: EP Sore throat, congestion Intake Note: Pt is here today c/o sore throat and chest congestion Patient Tobacco Use Status: Never used Tobacco Allergies hydromorphone (From Dilaudid) Allergy (Mild, Verified 04/02/25 11:42) facial/hand numbness latex (Latex) Allergy (Unknown, Verified 04/02/25 11:42) UNKNOWN HPI HPI Comments History of Present Illness Details History of Present Illness - The patient is a 35-year-old female presenting with symptoms of a sore throat and congestion. - History of Problem: The patient had a previous diagnosis of streptococcal pharyngitis treated with amoxicillin, which provided temporary relief. - Detailed Description of the Problem: The sore throat returned after two to three days of relief, accompanied by congestion. Cough but cough and congestion are better today, sore throat continues. - Interventions: The patient replaced personal items like toothbrushes to prevent reinfection. - Relevant Medical History: The patient uses a steroid inhaler and rinses her mouth after use. Review of Systems - Respiratory: Reports cough and congestion. Denies dyspnea or wheezing. - General: Denies fever or shortness of breath. All systems reviewed and are unremarkable except as noted in HPI Physical Exam General: Cooperative, healthy appearing, comfortable, no acute distress and well developed Orientation: Patient oriented x3 Limitations: No limitations Head: Normal to inspection Ears: Hearing grossly normal bilaterally Nose: Normal External nose present Face and sinus: Normal facial exam Mou8th: tongue with white coating Eyes: Appearance normal, both eyes and all related structures Neck: Normal visual inspection and Yes full ROM Respiratory: Normal respiratory effort and able to speak in complete sentences. Skin: No rashes or lesions noted Neuro: Patient oriented x3 Extremities: Normal to inspection [facility] Medical History Arthritis Asthma Fibroid Anemia Surgical History Hx of colonoscopy Hx of ankle fusion History of ovarian cystectomy Hx of section History of esophagogastroduodenoscopy (EGD) Social History Alcohol intake: never Patient Tobacco Use Status: Never used Tobacco Advance Directives Date on File: 12/01/22 service: No Current occupational status: employed Physical Exam Vital Signs: Last Vital Signs Temp 98.4 F 04/26/25 12:40 Pulse 75 04/26/25 12:40 Resp 16 04/26/25 12:40 BP 102/74 04/26/25 12:40 Pulse Ox 97 04/26/25 12:40 Oxygen Delivery Method Room Air 04/26/25 12:40 BMI result Body Mass Index 41.0 Assessment & Plan Assessment & Plan (1) Thrush, oral: Code(s): B37.0 - Candidal stomatitis Plan: Patient was informed and verbally consented to the use of an ambient scribe for clinic note documentation during this visit. Oral Candidiasis (Thrush) - The patient initially presented with streptococcal pharyngitis, treated with antibiotics, followed by the development of oral candidiasis. - Prescribed clotrimazole lozenges, to be used five times daily for one week. - Advised to rinse mouth thoroughly after using steroid inhaler to prevent recurrence. Medications: New clotrimazole 10 mg mucous membrane .5 times per day 35 tabs 0RF 7 days Coding Level of Care Code New Pt Level 3 (32827) Diagnoses Thrush, oral B37.0
--- OUTSIDE RECORDS SUMMARY | 2025-04-26 13:43 | XMS_ITS | Clinical Summary ---
Author Organization [facility] Address [address] [place] [address] Phone Care Team Providers Care Blueberry Grower Name Role Phone Unavailable Primary Care Provider [...] Alive Mother: Asthma Other 1 grandma: Sudden /[place] under age 55 Other 2 grandfather: Di [...]
--- OUTSIDE RECORDS SUMMARY | 2025-04-26 13:43 | XMS_ITS | Clinical Summary ---
Author Organization [facility] Address [address] [place] [address] Care Team Providers Care Respiratory Tech Name Role Phone Dallas Hernandez MD Primary Care Provider [phone] Allergies Active Allergy Reactions Criticality Noted Date [...] Advance Directives For more information, please contact: [phone] Documents on File Type Date Recorded Patient Pit Inspector Expl anation Advance Directive and Living Will 12/30/2020 PRIVACY DISCLOSURE Care Teams Respiratory Tech Relationship Specialty Start Date End Date Dallas Hernandez MD PCP - General Internal Medicine 12/30/20
--- OUTSIDE RECORDS SUMMARY | 2025-04-26 13:43 | XMS_ITS | Clinical Summary ---
Author Organization [facility] Address [address] [place] [address] Phone Care Team Providers Care Associate Media Planner Name Role Phone Dallas Hernandez MD Primary Care Provider [phone] Allergies Active Allergy Reactions Criticality Noted Date [...] mcg/actuation inhalerIndicatio ns:Severe persistent asthma without complication ([facility] V28) INHALE 2 PUFFS BY MOUTH EVERY [...] mcg/actuation inhalerIndicatio ns:Severe persistent asthma without complication ([facility] V28) INHALE 2 PUFFS BY MOUTH EVERY [...] pedinculated Severe persistent asthma without complication ([facility] V28) 11/06/2019 Overview (05/11/2024): Last Assessment & [...] to tolerate PO iron. Has seen hematology ([facility]): 12/30/20:Pending repeat labs may need Iron infusion. Last Assessment & Plan: I referred her to Hematology for consideration of iron infusions. Immunizations Immunization Administration Dates Next Due Hepatitis B ([facility]-Ekov[facility] , Recombivax HB-Adult) 19yo and older 09/19/2012,08/15/2012 [...] UMBILICAL HERNIA UPPER GASTROINTESTINAL ENDOSCOPY 07/25/2019 PROCEDURE: ID UPPER GI ENDOSCOPY PERFORMED; COMMENT: Minimal antral erosive gastritis; gastric and esophageal biopsies obtained. Pathology: Eosinophilic esophagitis and gastritis. No Helicobacter pylori. ANKLE SURGERY 07/06/2017 Left PROCEDURE: HISTORICAL ANKLE SURGERY; COMMENT: arthroscopy and hardware removal FOOT SURGERY 03/05/2015 Left PROCEDURE: HISTORICAL FOOT SURGERY; COMMENT: subtalar fusion revision,bone graft & hardware removal; 08/29/2013 triple arthrodesis, ankle tendo-Achilles lengthening OVARIAN CYST REMOVAL PROCEDURE: ID OVARIAN CYSTECTOMY UNI/BI; COMMENT: laprascopic surgery 4-5yrs [...] 9:00 AM EST Office Visit Adult Medicine [id number] [place] [address] Pepito Otoole PA [address] [place] [address] 05/17/2025 1:00 PM EST Office Visit Pulmonology - [address] [place] [phone] Libertad Danielle MD [address] [place] [phone] Health Maintenance Due Date Last Done Comments [...] Completed 12/14/1994, 04/30/1991 HPV Vaccines Completed 06/07/2008, 07/06/2007, 11/13/2007 Hepatitis B Vaccines Completed 09/19/2012, 08/15/2012, [...] Results * (ABNORMAL) Lipid panel (03/02/2024) Pathologist [facility] LDL/HDL Ratio 6(A) 0 - 4 Triglycerides 669(A) 0 - 150 mg/dL Cholesterol 190 0 - 200 mg/dL HDL 32(A) >=40 mg/dL Blood Venous blood specimen / Unknown [facility] Provider LAB BLOOD ORDERABLES Skylar l Result * Cervical Cancer Screening: HPV (11/17/2020) Pathologist [facility] Cervical Cancer Screening: HPV Abstracted, Negative Historical Provider HEALTH MAINTENANCE Final Result * HIV Screening (11/05/2020) [facility] HIV Screening Abstracted Historical Provider HEALTH MAINTENANCE Final Result * Hepatitis C Screening (11/05/2020) [facility] Hepatitis C Screening Abstracted [facility] Provider HEALTH MAINTENANCE Final Result from Last 3 Months or Most Recently Relevant to Health Maintenance Insurance [facility] PLAN Advance Directives Documents on File Type Date Recorded Patient Clinical Technician Expl anation Health Care Decision (hx) 12/30/2020 NOÉ BRIAN DIRECTIVE Care Teams Associate Media Planner Relationship Specialty Start Date End Date Dallas Hernandez MD [address] [place] [phone] PCP - General 11/26/09
--- OUTSIDE RECORDS SUMMARY | 2025-04-26 13:43 | XMS_ITS | Encounter Summary ---
Author Organization [facility] Address [address] [place] [address] Phone Care Team Providers Care Electric Motor Winders Assembler Name Role Phone Lupe Plummer MD Primary Care Provider Encounter Details Date Type Department Care Team (Late st Contact Info) Description 02/10/2017 Conversion Encounter [facility] [place] [address] [place], [place] [id number] Social History Tobacco Use Types Packs/Day Years [...] on filedocumented in this encounter Care Teams Electric Motor Winders Assembler Relationship Specialty Start Date End Date Lupe Plummer MD [address] [place] [address] PCP - General 02/04/17 12/09/22 documented as of this encounter
--- OUTSIDE RECORDS SUMMARY | 2025-04-26 13:44 | XMS_ITS | Encounter Summary ---
Author Organization [facility] Address [address] [place] [address] Phone Care Team Providers Care Director Of Undergraduate Admissions Name Role Phone Lupe Plummer MD Primary Care Provider Encounter Details Date Type Department Care Team (Late st Contact Info) Description 12/17/2010 Documentation EM Family Medicine [address] [place] [address] Family Medicine, Physician [address] [place], [place] [id number] Social History Tobacco Use Types Packs/Day Years [...] on filedocumented in this encounter Care Teams Director Of Undergraduate Admissions Relationship Specialty Start Date End Date Lupe Plummer MD [address] [place] [address] SHENG Coats [id number] PCP - General 02/04/17 12/09/22 documented as of this encounter
== END 2025-04-26 13:07 | disposition home or self-care (01) ==
PROVIDERS: PCP Internal Medicine; Visit Provider Physician Assistant
DX: B37.0 Candidal stomatitis (principal); Z13.9 Encounter for screening, unspecified

== ENCOUNTER → 2025-04-26 12:17 | Outpatient (BNVA) | payer OTHER, SELFPAY | PROVIDERS: PCP Internal Medicine; Visit Provider Physician Assistant | DX: B37.0 Candidal stomatitis (principal); J02.9 Acute pharyngitis, unspecified | CPT/HCPCS: 87880; 99202 ==